=== PATIENT | female | born 1975 | race Caucasian/White ===

== ENCOUNTER 2018-10-02 11:51 | Inpatient (IN) ==
--- NOTE | 2018-10-02 12:26 | Emergency Department Note ---
Disposition Clinical Impression: Failure of outpatient treatment Diabetic ulcer of toe of right foot Qualifiers: Diabetes mellitus type: type 2 Non-pressure ulcer stage: with fat layer exposed Qualified Code(s): E11.621 - Type 2 diabetes mellitus with foot ulcer; L97.512 - Non-pressure chronic ulcer of other part of right foot with fat layer exposed Disposition: Admitted As Inpatient Condition: Fair Referrals: Diane Rodriguez, RESPIRATORY CARE SPECIALIST [Primary Care Provider] - Forms: ED Satisfaction Letter Time of Disposition: 14:13 Lower Extremity Injury HPI - General Chief Complaint: ED Extremity Injury, Lower Stated Complaint: RLE infection Time Seen by Provider: 10/02/18 12:04 Nursing Notes Reviewed: Yes Vital Signs Reviewed: Yes - History of Present Illness HPI Narrative: 43yo female presents from podiatry's office for evaluation and admission. Per patient, Dr. Ferrera plans on surgical debridement tomorrow. Patient's right great toe infection started several weeks ago with a callus that subsequently became infected. She is 7 days into antibiotic course of unknown duration and unknown antibiotic per patient. Patient notes that her symptoms have not improved right have worsened despite this antibiotic course. She notes sweats and chills at home. She did take her temperature at home but did not measure a fever. PMH: DM reportedly poorly controlled due to noncompliance. ROS: Positive: Sweats and chills. Right great toe pain with swelling, erythema, ulcer. Swelling of right foot. Negative: Fever, nausea, vomiting, chest pains, palpitations, ankle or knee pain. - Related Data Home Medications Medication Instructions Recorded Confirmed Dicyclomine [Bentyl] 10 mg PO QID 10/02/18 10/02/18 Gabapentin [Neurontin] 800 mg PO TID 10/02/18 10/02/18 Insulin ASPART [Novolog] 18 units SQ TID 10/02/18 10/02/18 Insulin Glargine,Hum.rec.anlog 0 units SQ DAILY 10/02/18 10/02/18 [Annelise Bowman] Liraglutide [Victoza 2-Wilmer] 0.6 mg SQ QWEEK 10/02/18 10/02/18 Lisinopril-HCTZ 10-12.5 [Prinzide 1 each PO DAILY 10/02/18 10/02/18 10-12.5] Metformin HCl 500 mg PO BID 10/02/18 10/02/18 Allergies Allergy/AdvReac Type Severity Reaction Status Date / Time codeine AdvReac Itching Verified 10/02/18 12:01 [From Tylenol-Codeine #3] hydrocodone [From [place]] AdvReac Itching Verified 10/02/18 12:01 propoxyphene AdvReac Nausea Verified 10/02/18 12:01 [From Darvocet-N] tramadol AdvReac See Verified 10/02/18 12:01 Comments All systems ED: reviewed and negative except as stated. 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 Head: atraumatic, normocephalic Eye: normal appearance, PERRL, EOMI, no scleral icterus, no conjunctival injection ENT: mucous membranes moist, normal external ear exam Neck: normal inspection, trachea midline, full ROM Chest: normal inspection, symmetric chest rise Respiratory: Good respiratory effort. Bilateral breath sounds are clear without wheezing, crackles, or rhonchi. Cardiovascular: Regular rate and rhythm. No clicks, rubs, gallops, or murmors. Normal heart sounds. Bilateral posterior tibial pulses 2/4 and equal. Brisk capillary refill in right toes. Abdomen: Bowel sounds present normoactive. Abdomen is soft, nondistended, and n ontender. No guarding or rebound. No organomegaly noted. Musculoskeletal: Spontaneously moving all extremities. Skin: warm, dry. Right great toe is markedly swollen, erythematous, warm with grade 2 ulcer on the medio-plantar aspect. Erythema and swelling extending through the dorsal foot to the proximal midfoot. Neuro: GCS 15. No focal neurologic deficits observed. Psych: Patient's affect is appropriate for situation. Course Course Narrative: Patient is well-appearing. Afebrile. Normotensive. She is, however, tachycardic. Three-view x-ray and wound culture performed as outpatient prior to arrival to the emergency department today. Three-view x-ray right great toe obtained as outpatient: XR/XR toes RT IMPRESSION: No acute osseous injury or x-ray evidence of osteomyelitis. Soft tissue swelling of the great toe, edema versus cellulitis. D/ / Flo Fish MD / Flo Fish MD Interpreting Provider: Flo Fish MD Per patient, Dr. Ferrera collected cultures of the wound today. Empiric vancomycin and Zosyn. Serum hematology shows slight elevation of white count. ESR is in the 60s. CRP is 120s. I discussed the above with the on-call sterilization specialist, Dr. Ravi. I spoke with the OR nurse as he was in surgery. No further recommendations at this time. I discussed the above with the on-call hospitalist, Dr. Snell. All questions answered. Vital Signs Temperature 98.2 F 10/02/18 11:59 Pulse Rate 113 10/02/18 11:59 Respiratory Rate 16 10/02/18 11:59 Blood Pressure 129/85 10/02/18 11:59 O2 Sat by Pulse Oximetry 99 10/02/18 11:59 Temperature 98.2 F 10/02/18 12:11 Pulse Rate 109 10/02/18 13:03 Respiratory Rate 16 10/02/18 13:03 Blood Pressure 145/100 10/02/18 13:03 O2 Sat by Pulse Oximetry 99 10/02/18 13:03 Oxygen Delivery Oxygen Delivery Room Air Extremity Injury, Lower - Lab Data Result diagrams: 10/02/18 12:19 10/02/18 12:19 Lab Results 10/02/18 10/02/18 10/02/18 Range/Units 12:19 12:19 12:19 WBC 12.0 H (4.3-11.1) K/mcL RBC 4.37 (3.82-4.97) M/mcL Hgb 13.1 (11.5-15.4) g/dL Hct 39.0 (35.3-44.9) % MCV 89.2 (83.0-100.0) fL MCH 30.0 (28.0-33.3) pg MCHC 33.6 (31.6-35.5) g/dL RDW 11.6 (11.5-14.5) % Plt Count 424 H (140-400) K/mcL MPV 9.9 (9.4-12.4) fL Immature Gran % 0.4 (0-4) % Seg Neutrophils % 77.8 % Lymphocytes % 15.3 % Monocytes % 5.0 % Eosinophils % 1.0 % Basophils % 0.5 % Neutrophils # 9.4 H (1.6-8.9) K/mcL Lymphocytes # 1.8 (0.6-4.6) K/mcL Monocytes # 0.6 (0.0-1.3) K/mcL Eosinophils # 0.1 (0.0-0.6) K/mcL Basophils # 0.1 (0.0-0.2) K/mcL ESR 66 H (0-15) mm/hr Sodium 133 L (136-145) mEq/L Potassium 3.6 (3.5-5.1) mEq/L Chloride 92 L (98-107) mEq/L Carbon Dioxide 30 H (23-29) mEq/L BUN 10 (6-20) mg/dL Creatinine 0.64 (0.60-1.20) mg/dL Est GFR ( Amer) > 60 (> 60) Est GFR (Non-Af Amer) > 60 (> 60) BUN/Creatinine Ratio 16 (6-26) Glucose 307 H (70-105) mg/dL Calculated Osmolality 287 (280-300) Lactic Acid (0.5-2.2) mmol/L Calcium 9.8 (8.6-10.3) mg/dL C-Reactive Protein 125 H (Less than 10) mg/L Serum , Qual (Negative) 10/02/18 10/02/18 Range/Units 12:19 12:29 WBC (4.3-11.1) K/mcL RBC (3.82-4.97) M/mcL Hgb (11.5-15.4) g/dL Hct (35.3-44.9) % MCV (83.0-100.0) fL MCH (28.0-33.3) pg MCHC (31.6-35.5) g/dL RDW (11.5-14.5) % Plt Count (140-400) K/mcL MPV (9.4-12.4) fL Immature Gran % (0-4) % Seg Neutrophils % % Lymphocytes % % Monocytes % % Eosinophils % % Basophils % % Neutrophils # (1.6-8.9) K/mcL Lymphocytes # (0.6-4.6) K/mcL Monocytes # (0.0-1.3) K/mcL Eosinophils # (0.0-0.6) K/mcL Basophils # (0.0-0.2) K/mcL ESR (0-15) mm/hr Sodium (136-145) mEq/L Potassium (3.5-5.1) mEq/L Chloride (98-107) mEq/L Carbon Dioxide (23-29) mEq/L BUN (6-20) mg/dL Creatinine (0.60-1.20) mg/dL Est GFR ( Amer) (> 60) Est GFR (Non-Af Amer) (> 60) BUN/Creatinine Ratio (6-26) Glucose (70-105) mg/dL Calculated Osmolality (280-300) Lactic Acid 0.9 (0.5-2.2) mmol/L Calcium (8.6-10.3) mg/dL C-Reactive Protein (Less than 10) mg/L Serum , Qual Negative (Negative)
[2018-10-02] MEDS ORDERED: Piperacillin/Tazobactam 3.375 GM in 0.9 % Sodium Chloride Mini Bag 100 ML IVPB ONE (12:29)
[2018-10-02] MEDS ORDERED: Acetaminophen 325 MG TABLET PO ONE (12:31)
[2018-10-02] MEDS ORDERED: Ketorolac 15 MG/ML VIAL IVP ONE (12:31)
--- NOTE | 2018-10-02 12:48 | Emergency Department Note ---
Disposition Clinical Impression: Failure of outpatient treatment Diabetic ulcer of toe of right foot Qualifiers: Diabetes mellitus type: type 2 Non-pressure ulcer stage: with fat layer exposed Qualified Code(s): E11.621 - Type 2 diabetes mellitus with foot ulcer Disposition: Admitted As Inpatient Condition: Fair Referrals: Diane Rodriguez CHILD HEALTH ASSOCIATE [Primary Care Provider] - Forms: ED Satisfaction Letter Time of Disposition: 14:10 General Adult HPI - General Chief complaint: ED Extremity Injury, Lower Stated complaint: RLE infection Time Seen by Provider: 10/02/18 12:04 Source: patient Limitations: no limitations Nursing Notes Reviewed: Yes Vital Signs Reviewed: Yes - History of Present Illness Pain Scale: 8 - Related Data Home Medications Medication Instructions Recorded Confirmed Dicyclomine [Bentyl] 10 mg PO QID 10/02/18 10/02/18 Gabapentin [Neurontin] 800 mg PO TID 10/02/18 10/02/18 Insulin ASPART [Novolog] 18 units SQ TID 10/02/18 10/02/18 Insulin Glargine,Hum.rec.anlog 0 units SQ DAILY 10/02/18 10/02/18 [Annelise Bowman] Liraglutide [Victoza 2-Wilmer] 0.6 mg SQ QWEEK 10/02/18 10/02/18 Lisinopril-HCTZ 10-12.5 [Prinzide 1 each PO DAILY 10/02/18 10/02/18 10-12.5] Metformin HCl 500 mg PO BID 10/02/18 10/02/18 Allergies Allergy/AdvReac Type Severity Reaction Status Date / Time codeine AdvReac Itching Verified 10/02/18 12:01 [From Tylenol-Codeine #3] hydrocodone [From [place]] AdvReac Itching Verified 10/02/18 12:01 propoxyphene AdvReac Nausea Verified 10/02/18 12:01 [From Darvocet-N] tramadol AdvReac See Verified 10/02/18 12:01 Comments Past Medical History - Past Medical History Medical history: Reports: diabetes, GERD, hyperlipidemia, hypertension Surgical history: Reports: hysterectomy, other Psychiatric history: Reports: anxiety, bipolar, depression 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 - Social History Smoking Status: Former smoker Smokeless Tobacco Status: No Alcohol use: Reports: occasionally Drug use: Reports: none Physical Exam - General Limitations: no limitations General appearance: alert, in no apparent distress Course Vital Signs Temperature 98.2 F 10/02/18 11:59 Pulse Rate 113 10/02/18 11:59 Respiratory Rate 16 10/02/18 11:59 Blood Pressure 129/85 10/02/18 11:59 O2 Sat by Pulse Oximetry 99 10/02/18 11:59 Temperature 98.2 F 10/02/18 12:11 Pulse Rate 93 10/02/18 14:09 Respiratory Rate 16 10/02/18 14:09 Blood Pressure 108/78 10/02/18 14:09 O2 Sat by Pulse Oximetry 96 10/02/18 14:09 Oxygen Delivery Oxygen Delivery Room Air Medical Decision Making - Lab Data Result diagrams: 10/02/18 12:19 10/02/18 12:19 Lab Results 10/02/18 10/02/18 10/02/18 Range/Units 12:19 12:19 12:19 WBC 12.0 H (4.3-11.1) K/mcL RBC 4.37 (3.82-4.97) M/mcL Hgb 13.1 (11.5-15.4) g/dL Hct 39.0 (35.3-44.9) % MCV 89.2 (83.0-100.0) fL MCH 30.0 (28.0-33.3) pg MCHC 33.6 (31.6-35.5) g/dL RDW 11.6 (11.5-14.5) % Plt Count 424 H (140-400) K/mcL MPV 9.9 (9.4-12.4) fL Immature Gran % 0.4 (0-4) % Seg Neutrophils % 77.8 % Lymphocytes % 15.3 % Monocytes % 5.0 % Eosinophils % 1.0 % Basophils % 0.5 % Neutrophils # 9.4 H (1.6-8.9) K/mcL Lymphocytes # 1.8 (0.6-4.6) K/mcL Monocytes # 0.6 (0.0-1.3) K/mcL Eosinophils # 0.1 (0.0-0.6) K/mcL Basophils # 0.1 (0.0-0.2) K/mcL ESR 66 H (0-15) mm/hr Sodium 133 L (136-145) mEq/L Potassium 3.6 (3.5-5.1) mEq/L Chloride 92 L (98-107) mEq/L Carbon Dioxide 30 H (23-29) mEq/L BUN 10 (6-20) mg/dL Creatinine 0.64 (0.60-1.20) mg/dL Est GFR ( Amer) > 60 (> 60) Est GFR (Non-Af Amer) > 60 (> 60) BUN/Creatinine Ratio 16 (6-26) Glucose 307 H (70-105) mg/dL Calculated Osmolality 287 (280-300) Lactic Acid (0.5-2.2) mmol/L Calcium 9.8 (8.6-10.3) mg/dL C-Reactive Protein 125 H (Less than 10) mg/L Serum , Qual (Negative) 10/02/18 10/02/18 Range/Units 12:19 12:29 WBC (4.3-11.1) K/mcL RBC (3.82-4.97) M/mcL Hgb (11.5-15.4) g/dL Hct (35.3-44.9) % MCV (83.0-100.0) fL MCH (28.0-33.3) pg MCHC (31.6-35.5) g/dL RDW (11.5-14.5) % Plt Count (140-400) K/mcL MPV (9.4-12.4) fL Immature Gran % (0-4) % Seg Neutrophils % % Lymphocytes % % Monocytes % % Eosinophils % % Basophils % % Neutrophils # (1.6-8.9) K/mcL Lymphocytes # (0.6-4.6) K/mcL Monocytes # (0.0-1.3) K/mcL Eosinophils # (0.0-0.6) K/mcL Basophils # (0.0-0.2) K/mcL ESR (0-15) mm/hr Sodium (136-145) mEq/L Potassium (3.5-5.1) mEq/L Chloride (98-107) mEq/L Carbon Dioxide (23-29) mEq/L BUN (6-20) mg/dL Creatinine (0.60-1.20) mg/dL Est GFR ( Amer) (> 60) Est GFR (Non-Af Amer) (> 60) BUN/Creatinine Ratio (6-26) Glucose (70-105) mg/dL Calculated Osmolality (280-300) Lactic Acid 0.9 (0.5-2.2) mmol/L Calcium (8.6-10.3) mg/dL C-Reactive Protein (Less than 10) mg/L Serum , Qual Negative (Negative) Attestation Statement - Attestation Attestation: I examined this patient and my medical decision-making was reviewed with the Resident Physician. I agree with the documented findings, disposition and treatment plan as described except to the extent set forth below. Patient presents to the ED with a chief complaint of an ulcer on her right great toe. She has been on antibiotics for about a week and it has gotten worse. Red and swollen and painful. On examination is an ulceration to the right medial aspect of her great toe. There is a significant amount of swelling to the toe and foot. Plan. 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 IV antibiotics and admission. Patient is admitted to medicine.
[2018-10-02 12:49] LABS: Basophils # 0.1 K/mcL (0.0-0.2); Basophils % 0.5 %; Eosinophils # 0.1 K/mcL (0.0-0.6); Hemoglobin 13.1 g/dL (11.5-15.4); Immature Granulocytes % 0.4 % (0-4); Lymphocytes # 1.8 K/mcL (0.6-4.6); Lymphocytes % 15.3 %; Mean Corpuscular HGB Conc 33.6 g/dL (31.6-35.5); Mean Corpuscular Volume 89.2 fL (83.0-100.0); Mean Platelet Volume 9.9 fL (9.4-12.4); Monocytes # 0.6 K/mcL (0.0-1.3); Neutrophils # 9.4 K/mcL (1.6-8.9); Platelet Count 424 K/mcL (140-400); Red Blood Count 4.37 M/mcL (3.82-4.97); Red Cell Distribution Width 11.6 % (11.5-14.5); Segmented Neutrophils % 77.8 %
[2018-10-02 13:04] LABS: BUN/Creatinine Ratio 16 (6-26); Blood Urea Nitrogen 10 mg/dL (6-20); C-Reactive Protein 125 mg/L (Less than 10); Calcium 9.8 mg/dL (8.6-10.3); Carbon Dioxide 30 mEq/L (23-29); Chloride 92 mEq/L (98-107); Glucose 307 mg/dL (70-105); Osmolality,Calculated 287 (280-300); Potassium 3.6 mEq/L (3.5-5.1); Sodium 133 mEq/L (136-145); eGFR For African Americans > 60 (> 60); eGFR For Non-African Americans > 60 (> 60)
[2018-10-02] MEDS ORDERED: *HR* OxyCODONE Immed Rel 5 MG TABLET PO PRN (15:44)
[2018-10-02] MEDS ORDERED: Ondansetron ODT 4 MG TAB.RAPDIS SL PRN (15:44)
[2018-10-02] MEDS ORDERED: Acetaminophen 325 MG TABLET PO PRN (15:44)
[2018-10-02] MEDS ORDERED: Naloxone 0.4 MG/ML INJ IVP PRN (15:44)
[2018-10-02] MEDS ORDERED: Ringers Solution, Lactated 1,000 ML IVC ONE (15:52)
[2018-10-02] MEDS: Gabapentin 400 MG CAPSULE PO SCH ×2 (16:25→20:41)
[2018-10-02] MEDS: Insulin LISPRO 300 UNITS/3 ML VIAL SQ SCH (17:40)
[2018-10-02] MEDS ORDERED: Ringers Solution, Lactated 500 ML IVC ONE ×2 (17:58→18:15)
--- NOTE | 2018-10-02 18:05 | Internal Med History&Physical ---
Date of Encounter: 10/02/18 Time of Encounter: 17:50 Internal Medicine - H&P: HPI Chief complaint: Right Foot Infection Admitted From: Home Plans for Post Hospital Care: Home History of present illness: Ms. Zheng is a 43 year old female with history of insulin-dependent diabetes mellitus and hypertension presents with concerns for diabetic foot infection. Patient had what she describes as a callus on her right medial foot that started 1 month ago. Said she unroofed and drained it at her home. She then was set up with the laboratory tech. At her first podiatry appointment, foot appeared to be healing appropraitly so antibiotics were not started. Two weeks later the foot started to become erythematous and swollen. Placed on an unknown antibiotic at that time. Has been on this for 7 days without improvement. Was in her podiatry physician's office today and was instructed to go to the emergency room to be admitted for probable debridement. In the ED, HR 106 but otherwise vital signs stable. WBC 12. Glucose of 518. Started on vancomycin, Zosyn, and IVF. Discussed with podiatry. Admitted to medicine. Past Med Surg Social Fam HX - Past Medical History Medical history: diabetes, GERD, hyperlipidemia, hypertension Additional medical history: IBS Psychiatric history: anxiety, bipolar, depression - Past Surgical History Surgical History: hysterectomy, other Additional surgical history: tubal ligation - Social History Smoking Status: Former smoker Smokeless Tobacco Status: No Alcohol use: occasionally Drug use: none - Family History Father Hx Family Cardiac Disorders: Yes Internal Medicine - H&P: Meds Amoxicillin/Clavulanate [Augmentin] 1 tab PO BID 10/02/18 [History] Atorvastatin Calcium 80 mg PO QPM 10/02/18 [History] Dicyclomine [Bentyl] 10 mg PO QID 10/02/18 [History] Fenofibrate Nanocrystallized [Fenofibrate] 160 mg PO DAILY 10/02/18 [History] Gabapentin [Neurontin] 800 mg PO TID 10/02/18 [History] Gemfibrozil 600 mg PO BID 10/02/18 [History] Hyoscyamine SL [Levsin SL] 0.125 mg SL TID PRN 10/02/18 [History] Insulin ASPART [Novolog] 18 units SQ TID 10/02/18 [History] Insulin Glargine,Hum.rec.anlog [Toirenasintia Gironeliazarray] 0 units SQ DAILY 10/02/18 [History] Ketoconazole 2% CRM [Nizoral Cream] 1 appl TP BID PRN 10/02/18 [History] Lisinopril-HCTZ 20-12.5 [Prinzide 20-12.5] 1 tab PO DAILY 10/02/18 [History] Metformin HCl 500 mg PO BID 10/02/18 [History] Omeprazole [PriLOSEC] 40 mg PO DAILY 10/02/18 [History] Trazodone HCl 100 mg PO HS PRN 10/02/18 [History] Allergy/AdvReac Type Severity Reaction Status Date / Time codeine AdvReac Itching Verified 10/02/18 12:01 [From Tylenol-Codeine #3] hydrocodone [From [place]] AdvReac Itching Verified 10/02/18 12:01 propoxyphene AdvReac Nausea Verified 10/02/18 12:01 [From Darvocet-N] tramadol AdvReac See Verified 10/02/18 12:01 Comments All Systems PM: A 10-system review of systems was performed and is negative for pertinent findings except as documented above in the HPI. Review of systems: General: Fevers / Weight loss / Night sweats Eyes: Blurry Vision / Change in Vision HENT: Ear Pain / Ear Drainage / Rhinorrhea / Throat Pain / Lymphadenopathy Cardiovascular: Chest Pain / Palpatations / Orthopnea / BERNAL / Weight gain Lungs: Dyspnea / Wheezing / Cough / Sputum production / Pleurisy Abdomen: Abdomen pain / Abdominal distention Extremities: LE edema / Ext pain / Ext erythema Skin: Rashes / Abrasions / Contusions Psych: Hallucinations / Anxiety / Depression Neuro: Weakness / Numbness / Tingling / Facial Droop / Dysphagia - Constitutional Vitals: Temp Pulse Resp BP Pulse Ox 98.3 F 106 14 102/55 96 10/02/18 15:34 10/02/18 15:34 10/02/18 15:34 10/02/18 15:34 10/02/18 15:34 Exam: General: Ill-appearing and in no acute distress HEENT: No erythema of posterior pharynx. No exudates. Lymphatics: No mandibular or cervical lymphadenopathy Cardiovascular: RRR. No murmurs. No chest wall tenderness. Lungs: Clear to auscelltation bilaterally. Regular chest rise. Abdomen: Non-tender. No rebound or gaurding. Nl bowel sounds. Extremities: No edema. 2+ pulses radial and pedal pulses Skin: R foot with erythema and drainage over R medial posterior metatarsal. Mild tenderness. Psych: Nl attention. 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 5/5 strength. Sensation to light touch and pinprick intact. Internal Med - H&P Results - Labs CBC & Chem 7: 10/02/18 12:19 10/02/18 12:19 Labs: Short CBC 10/02/18 Range/Units 12:19 WBC 12.0 H (4.3-11.1) K/mcL Hgb 13.1 (11.5-15.4) g/dL Hct 39.0 (35.3-44.9) % Plt Count 424 H (140-400) K/mcL Neutrophils # 9.4 H (1.6-8.9) K/mcL BMP 10/02/18 12:19 Sodium 133 L Potassium 3.6 Chloride 92 L Carbon Dioxide 30 H BUN 10 Creatinine 0.64 Glucose 307 H Calcium 9.8 - Assessment and Plan (1) Sepsis Current Visit: Yes Status: Acute Assessment and plan: Patient with history of poorly controlled insulin-dependent diabetes mellitus presents with concerns for diabetic foot infection after failing outpatient antibiotic therapy. -Met sepsis criteria on admission with tachycardia and leukocytosis and is now status post 30cc per kg -Started on vancomycin and Zosyn in the emergency department -We will did refer to podiatry for imaging of the foot -We will undergo source control with debridement by podiatry PLAN: - Status post 30cc per kg - Vancomcin and Zosyn - Imaging and debridement per podiatry - NPO@[place] - Diabetic control per above Qualifiers: Sepsis type: sepsis due to unspecified organism Qualified Code(s): A41.9 - Sepsis, unspecified organism (2) Diabetic ulcer of toe of right foot Current Visit: Yes Status: Acute Assessment and plan: per above Qualifiers: Diabetes mellitus type: type 2 Non-pressure ulcer stage: unspecified non- pressure ulcer stage Qualified Code(s): E11.621 - Type 2 diabetes mellitus with foot ulcer; L97.519 - Non-pressure chronic ulcer of other part of right foot with unspecified severity (3) Diabetes Current Visit: No Status: Chronic Assessment and plan: History of type II insulin-dependent diabetes that is poorly controlled. On extensive diabetic regimen outpatient, however, exact dosing unclear. 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
[2018-10-02] MEDS: Piperacillin/Tazobactam 3.375 GM in 0.9 % Sodium Chloride Mini Bag 100 ML IVPB SCH (20:41)
[2018-10-02] MEDS ORDERED: Insulin DETEMIR 100 UNIT/ML X5UNITS SQ SCH (21:00)
[2018-10-02] MEDS ORDERED: Famotidine 20 MG TABLET PO STA (21:43)
[2018-10-02] MEDS ORDERED: methylPREDNISolone 125 MG/2 ML VIAL IVP ONE (21:43)
--- NOTE | 2018-10-03 00:22 | Event Note ---
Date of Encounter: 10/02/18 Time of Encounter: 21:14 Notified by nurse of patient having itching and facial swelling after receiving roxicodone. Denies any known allergy, tachycardic but vitals otherwise stable. No shortness of breath or airway compromise. Dr Pena assessed at bedside. Benadryl, pepcid, and solumedrol ordered. Patient reports resolution of her symptoms following medications. Nurse placed on cardiac monitoring and will monitor closely and notify of any changes. Roxicodone discontinued.
[2018-10-03 02:44] LABS: Basophils % 0.3 %; Eosinophils # 0.1 K/mcL (0.0-0.6); Eosinophils % 1.1 %; Hematocrit 34.8 % (35.3-44.9); Hemoglobin 11.8 g/dL (11.5-15.4); Immature Granulocytes % 0.5 % (0-4); Lymphocytes # 1.4 K/mcL (0.6-4.6); Lymphocytes % 14.8 %; Mean Corpuscular HGB Conc 33.9 g/dL (31.6-35.5); Mean Corpuscular Hemoglobin 30.4 pg (28.0-33.3); Mean Corpuscular Volume 89.7 fL (83.0-100.0); Mean Platelet Volume 9.6 fL (9.4-12.4); Monocytes # 0.3 K/mcL (0.0-1.3); Monocytes % 2.7 %; Platelet Count 375 K/mcL (140-400); Red Blood Count 3.88 M/mcL (3.82-4.97); Red Cell Distribution Width 11.8 % (11.5-14.5); Segmented Neutrophils % 80.6 %; White Blood Count 9.4 K/mcL (4.3-11.1)
[2018-10-03 02:48] LABS: Neutrophils # 7.6 K/mcL (1.6-8.9)
[2018-10-03 03:05] LABS: BUN/Creatinine Ratio 17 (6-26); Blood Urea Nitrogen 12 mg/dL (6-20); Carbon Dioxide 30 mEq/L (23-29); Chloride 98 mEq/L (98-107); Chol/HDL Ratio 6.2 (0-4.9); Cholesterol 149 mg/dL (< 200); Glucose 299 mg/dL (70-105); HDL Cholesterol 24 mg/dL (40-59); LDL Cholesterol,Calculated 63 mg/dL (0-99); Osmolality,Calculated 293 (280-300); Potassium 3.8 mEq/L (3.5-5.1); Sodium 136 mEq/L (136-145); Triglycerides 310 mg/dL (< 150); eGFR For African Americans > 60 (> 60); eGFR For Non-African Americans > 60 (> 60)
[2018-10-03 03:12] LABS: Platelet Estimate Normal (Normal)
[2018-10-03] MEDS: Piperacillin/Tazobactam 3.375 GM in 0.9 % Sodium Chloride Mini Bag 100 ML IVPB SCH ×3 (04:01→18:06)
--- NOTE | 2018-10-03 07:35 | Internal Med Progress Note ---
Hospitalist Progress Note - Encounter Date of Encounter: 10/03/18 Time of Encounter: 07:35 - Subjective Interval History: Patient seen and examined at bedside. Patient reports pain is under control. Overnight, patient had allergic reaction to pain medication oxycodone. Patient had itching and facial swelling, no shortness of breath or airway compromise. Benadryl, Pepcid, Solu-Medrol were ordered patient reported symptoms subsided after medications. She is to have surgery on her right foot this a.m. - Exam Vitals: Temp Pulse Resp BP Pulse Ox 98.6 F 91 15 110/72 99 10/03/18 03:49 10/03/18 03:49 10/03/18 03:49 10/03/18 03:49 10/03/18 03:49 Exam: General: well-appearing and in no acute distress HEENT: No erythema of posterior pharynx. EOM intact, PERRLA Neck: supple. trachea midline. No lymphadenopathy Cardiovascular: RRR. No murmurs. No chest wall tenderness. Lungs: Clear to auscelltation bilaterally. Symmetrical chest wall expansion Abdomen: Non-tender. No rebound or guarding. Bowel sounds present Extremities: No edema. Left foot 2+ pedal pulses, R foot: 2+ pedal pulses. Cellulitis of great toe, warm and tender to touch. Erythemetous. Skin: warm, dry, intact Psych: A&Ox3. 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 5/5 strength. Sensation intact - Summary of Assessment and Plan Summary of Assessment and Plan: Sepsis Pt presented with HR 106, WBC 12, cellulitis of R foot: meeting sepsis criteria, source likely r foot cellulitis -WBC 10/03/18: 9.4 -HR 90's Outpatient treatment of R foot with augmentin was unsuccessful Admitted for surgical management Started on empiric Vanco and Zosyn in ED -Source cellulitis on right foot Plan: -IV vanc -Zosyn Right foot cellulitis -Plantar aspec of R great toe -X-ray: 09/25 No osseous injury or evidence of osteomyelitis -Underwent Incision and drainage and debridement 10/03/18 -Cultures 09/25/18: MRSA, Proteus mirabilis, E. coli, Enterococcus faecalis Plan: -IV vanc -Zosyn -Wound culture collected 10/02/18: (10/03/18) growing G negative Prateek, G positive Cocci - Continue to monitor for sensitivities Diabetes: -History of insulin dependant Type II DM -Home meds: Novolog, Toujeo Solostar, Metformin, Holding while inpatient Plan: -On lispro and detemir while inpatient -Monitor glucose HTN: -History of HTN -BPs low before surgery Plan: -Fluid bolus given -BP's stable since -Holding Prinzide Allergic Reaction -Pt reported face swelling and itchiness following administraion of Roxycodone -No airway involvement -Relieved by benedryl and solumedrol - Time Spent with Patient Total time spent is greater than 50% in coordination of care (as documented) at patient's floor/unit and/or counseling patient: Internal Medicine: Result - Labs CBC & Chem 7: 10/03/18 02:29 10/03/18 02:29 Labs: Short CBC 10/02/18 10/03/18 Range/Units 12:19 02:29 WBC 12.0 H 9.4 (4.3-11.1) K/mcL Hgb 13.1 11.8 (11.5-15.4) g/dL Hct 39.0 34.8 L (35.3-44.9) % Plt Count 424 H 375 (140-400) K/mcL Neutrophils # 9.4 H 7.6 (1.6-8.9) K/mcL BMP 10/02/18 10/03/18 12:19 02:29 Sodium 133 L 136 Potassium 3.6 3.8 Chloride 92 L 98 Carbon Dioxide 30 H 30 H BUN 10 12 Creatinine 0.64 0.69 Glucose 307 H 299 H Calcium 9.8 9.0 Consult Discharge Plan - Plan Referrals: Diane Rodriguez, VISITOR SERVICES REPRESENTATIVE [Primary Care Provider] -
[2018-10-03] MEDS ORDERED: Lisinopril-HCTZ 20-12.5mg TABLET PO SCH (09:00)
[2018-10-03] MEDS: Gabapentin 400 MG CAPSULE PO SCH ×3 (09:01→20:24)
[2018-10-03] MEDS: Insulin LISPRO 300 UNITS/3 ML VIAL SQ SCH ×3 (09:01→18:05)
[2018-10-03] MEDS ORDERED: 0.9 % Sodium Chloride 1,000 ML IV ONE (10:01)
[2018-10-03] MEDS ORDERED: 0.9 % Sodium Chloride 500 ML IV ONE ×2 (10:40→14:01)
[2018-10-03] MEDS ORDERED: *HR* Midazolam HCl 2 MG/2 ML VIAL ONE (10:47)
[2018-10-03] MEDS ORDERED: *HR* FentaNYL (PF) 100 MCG/2 ML VIAL ONE (10:47)
[2018-10-03] MEDS ORDERED: Propofol 500 MG/50 ML INFUS..BTL ONE (10:47)
[2018-10-03] MEDS ORDERED: Lidocaine -MPF 2% 2 ML VIAL ONE (10:49)
[2018-10-03] MEDS ORDERED: Bupivacaine/EPI 1:200k 0.25%PF 10 ML VIAL INFILT ONE (11:37)
[2018-10-03] MEDS ORDERED: ROPIVACAINE/PF/NS 0.25% 1 EACH SYRINGE INTRAART ONE (11:38)
--- NOTE | 2018-10-03 11:38 | Anesthesia Evaluation PreOp ---
Date of Encounter: 10/03/18 Time of Encounter: 11:36 - Past History Planned Operation: Right Foot I&D Cardiac History: Denies any Significant Hx Pulmonary History: Denies Any Significant HX GASKET WINDER History: Other (Bipolar) Other Medical History: Diabetes Type II, GERD Anesthesia History: No Prior Anesthetic Complications, Past Anesthesia (TITI) : No (TITI) Alcohol Use: occasionally Drug use: none Medications and Allergies Amoxicillin/Clavulanate [Augmentin] 1 tab PO BID 10/02/18 [History] Atorvastatin Calcium 80 mg PO QPM 10/02/18 [History] Dicyclomine [Bentyl] 10 mg PO QID PRN 10/02/18 [History] Fenofibrate Nanocrystallized [Fenofibrate] 160 mg PO DAILY 10/02/18 [History] Gabapentin [Neurontin] 800 mg PO TID 10/02/18 [History] Gemfibrozil 600 mg PO BID 10/02/18 [History] Hyoscyamine SL [Levsin SL] 0.125 mg SL TID PRN 10/02/18 [History] Insulin ASPART [Novolog] 15 - 20 units SQ TIDAC 10/02/18 [History] Insulin Glargine,Hum.rec.anlog [Toujeo Solostar] 70 units SQ HS 10/02/18 [History] Ketoconazole 2% CRM [Nizoral Cream] 1 appl TP BID PRN 10/02/18 [History] Lisinopril-HCTZ 20-12.5 [Prinzide 20-12.5] 1 tab PO DAILY 10/02/18 [History] Metformin HCl 500 mg PO BID 10/02/18 [History] Omeprazole [PriLOSEC] 40 mg PO DAILY 10/02/18 [History] Trazodone HCl 100 mg PO HS PRN 10/02/18 [History] Allergy/AdvReac Type Severity Reaction Status Date / Time codeine AdvReac Itching Verified 10/02/18 12:01 [From Tylenol-Codeine #3] hydrocodone [From [place]] AdvReac Itching Verified 10/02/18 12:01 propoxyphene AdvReac Nausea Verified 10/02/18 12:01 [From Darvocet-N] tramadol AdvReac See Verified 07/10/19 12:01 Comments - Meds/Allergy Pre-op Review Medications Reviewed: Yes Allergies Reviewed: Yes Beta Blockers on Current Med List: No Anesthesia Results - Labs 10/03/18 02:29 10/03/18 02:29 - Imaging EKG: report reviewed () Anesthesia Exam Vital Signs/O2 Sat, Most Current Temp Pulse Resp BP Pulse Ox 97.7 F 88 19 115/81 99 10/03/18 07:48 10/03/18 07:48 10/03/18 07:48 10/03/18 10:35 10/03/18 07:48 Blood glucose: 387 NPO (# of Hours): > 8 hrs - HEENT Pupil (Motor): Pupils equal, EOMI Mallampati: II Teeth: Normal Oral Opening: Greater than 3 - GASKET WINDER LOC: Oriented GASKET WINDER Motor: Normal RUE, Normal LUE, Normal RLE, Normal LLE, Normal Face GASKET WINDER Sensory: Normal: RUE, LUE, RLE, LLE, Face - Cardiac Rhythm: Regular Murmur: None JVD: No Carotid Bruit: No - Pulmonary Breath Sounds: bilateral Clear Respiratory Effort: Symmetrical Anesthesia Assess/Plan ASA Score: 3 Level of consciousness: Cooperative Anesthetic Plan: General Autologous Blood: Yes Monitoring Plan: Standard Monitors Recovery Plan: PACU
[2018-10-03] MEDS ORDERED: Calcium Gluconate 1,000 MG/10 ML VIAL ONE (11:41)
[2018-10-03] MEDS ORDERED: *HR* OxyCODONE Immed Rel 5 MG TABLET PO PRN ×2 (11:48→14:01)
[2018-10-03] MEDS ORDERED: Ondansetron 4 MG/2 ML VIAL IVP ONE ×2 (11:48→14:01)
[2018-10-03] MEDS ORDERED: *HR* HYDROmorphone (PF) 1 MG/ML SYRINGE IVP PRN ×2 (11:48→14:01)
[2018-10-03] MEDS ORDERED: *HR* Promethazine 25 MG/ML VIAL IVP PRN ×2 (11:48→14:01)
--- NOTE | 2018-10-03 12:04 | Podiatry Consult Note ---
Date of Encounter: 10/03/18 Time of Encounter: 12:00 Assessment and Plan (1) Diabetic ulcer of toe of right foot Current visit: Yes Status: Acute Assessment: #1 diabetic foot ulcer with abscess and active infection right foot plantar first MTP #2 diabetes out of control with multiple comorbidities including diabetic neuropathy Plan: #1 agree with present broad-spectrum antibiotics. Cultures taken previously yesterday pending outcome and sensitivities #2 patient to proceed to the operating room for formal incision and drainage Qualifiers: Diabetes mellitus type: type 2 Non-pressure ulcer stage: unspecified non- pressure ulcer stage Qualified Code(s): E11.621 - Type 2 diabetes mellitus with foot ulcer; L97.519 - Non-pressure chronic ulcer of other part of right foot with unspecified severity History of Present Illness Chief complaint: Active abscess infection right foot HPI: Ms. Zheng is a 43 year old female , Presented to the wound care clinic yesterday after being evaluated and ongoing treatment for a diabetic foot ulcer plantar aspect of the right great toe. She is initially seen September 04 without a clinical evidence of complication at that time. Patient states she attempted to remove a callus and treated wound herself her. We will month prior to presenting. At that time local wound care was instituted patient continues to improve on September 25 she was seen again in approximately 8 days ago with suspicion for early infection but no conclusive clinical evidence of infection because there is lack of edema erythema over fluctuance necrosis purulence. There is periwound erythema but no loculated sinus tract or any clinical evidence to suggest she had no active infection. Nonetheless the wound debrided at that time under sterile conditions. A surveillance culture was taken the patient was placed on empiric antibiotics/ Augmentin answered 5 mg by mouth twice a day she then presented yesterday week after her second visit with an obvious active infection and a phlegmon on the medial aspect of the first MTPJ then Jac sinus tract from the original wound medially. She had history of fever chills nausea fatigue malaise and clinical symptoms consistent with possible sepsis. She was then underwent limited incision and drainage with active cultures aerobe and anaerobe and a dry sterile dressing applied. She was then sent to ED immediately for intravenous antibiotics and likely admission which was complete. She now presents for active formal incision and drainage and debridement today. We discussed risks versus benefits as well as alternatives to surgical intervention in terms she could understand. Risks include but not limited to infection bleeding pain loss of toe toes foot leg or life DVT blood clots need for further surgery. Failure of procedure to produce desired results. Patient voices comprehension. She signed the consent form under no distress or coercion was not premedicated by me prior to signing the consent form. No assurances or guarantees were made as to the outcome of the procedure. Past Med Surg Social Fam HX - Past Medical History Medical history: diabetes, GERD, hyperlipidemia, hypertension Additional medical history: IBS Psychiatric history: anxiety, bipolar, depression - Past Surgical History Surgical History: hysterectomy, other Additional surgical history: tubal ligation - Social History Smoking Status: Former smoker Smokeless Tobacco Status: No Alcohol use: occasionally Drug use: none Current living situation: Other (Patient recently engaged to be .) - Family History Father Hx Family Cardiac Disorders: Yes Medications and Allergies Amoxicillin/Clavulanate [Augmentin] 1 tab PO BID 10/02/18 [History] Atorvastatin Calcium 80 mg PO QPM 10/02/18 [History] Dicyclomine [Bentyl] 10 mg PO QID PRN 10/02/18 [History] Fenofibrate Nanocrystallized [Fenofibrate] 160 mg PO DAILY 10/02/18 [History] Gabapentin [Neurontin] 800 mg PO TID 10/02/18 [History] Gemfibrozil 600 mg PO BID 10/02/18 [History] Hyoscyamine SL [Levsin SL] 0.125 mg SL TID PRN 10/02/18 [History] Insulin ASPART [Novolog] 15 - 20 units SQ TIDAC 10/02/18 [History] Insulin Glargine,Hum.rec.anlog [Toujeo Solostar] 70 units SQ HS 10/02/18 [History] Ketoconazole 2% CRM [Nizoral Cream] 1 appl TP BID PRN 10/02/18 [History] Lisinopril-HCTZ 20-12.5 [Prinzide 20-12.5] 1 tab PO DAILY 10/02/18 [History] Metformin HCl 500 mg PO BID 10/02/18 [History] Omeprazole [PriLOSEC] 40 mg PO DAILY 10/02/18 [History] Trazodone HCl 100 mg PO HS PRN 10/02/18 [History] Allergy/AdvReac Type Severity Reaction Status Date / Time codeine AdvReac Itching Verified 10/02/18 12:01 [From Tylenol-Codeine #3] hydrocodone [From [place]] AdvReac Itching Verified 10/02/18 12:01 propoxyphene AdvReac Nausea Verified 10/02/18 12:01 [From Darvocet-N] tramadol AdvReac See Verified 10/02/18 12:01 Comments All Systems Reviewed: The remainder of the systems were reviewed and are negative , No chest pain or shortness of breath. She has history of home fever chills nausea fatigue or malaise. She has long history of peripheral sensory neuropathy loss of protective sensation of both feet and legs. Physical Exam - Constitutional Vitals: Temp Pulse Resp BP Pulse Ox 98.2 F 93 16 125/93 99 10/03/18 11:45 10/03/18 11:45 10/03/18 11:45 10/03/18 11:45 10/03/18 11:45 General appearance: thin Exam: 43-year-old female it is questions appropriately joint 3 is conversant engaging and talkative. - Neurological Exam Neurological exam IM: Present: DTR, Achilles, Patellar, Grade 1/4 Additional comments: no spasticity rigidity or flaccidity of either foot or leg.. She has loss of epicritic, vibratory 2 point discrimination, light touch and vibratory sensation, protective sensation from toes to tibia bilaterally. - Psychiatric Psychiatric exam: Present: normal affect - Skin Skin Exam: Present: ulceration Additional comments: Hobbs grade 2 ulceration plantar aspect right great toe with phlegmon tracking medially with sinus tract as well. Surrounding cellulitis spreading the plantar medial and proximal aspect first MTPJ metatarsal - Vascular Capillary Refill: Immediate Right Popliteal: 1+ Left Popliteal: 1+ Right Dorsalis Pedis: 1+ Left Dorsalis Pedis: 1+ Right Posterior Tibialis: 1+ Left Posterior Tibialis: 1+ Edema Location: Present: Ankle, Foot Edema Degree: 1+ Edema Results - Labs Result Diagrams: 10/03/18 02:29 10/03/18 02:29 Labs: Abnormal lab results WBC 12.0 K/mcL (4.3-11.1) H 10/02/18 12:19 Hct 34.8 % (35.3-44.9) L 10/03/18 02:29 Plt Count 424 K/mcL (140-400) H 10/02/18 12:19 9.4 K/mcL (1.6-8.9) H 10/02/18 12:19 ESR 66 mm/hr (0-15) H 10/02/18 12:19 Sodium 133 mEq/L (136-145) L 10/02/18 12:19 Chloride 92 mEq/L (98-107) L 10/02/18 12:19 Carbon Dioxide 30 mEq/L (23-29) H 10/03/18 02:29 Glucose 299 mg/dL (70-105) H 10/03/18 02:29 POC Glucose 387 mg/dL (70-99) H 10/03/18 05:47 125 mg/L (Less than 10) H 10/02/18 12:19 Triglycerides 310 mg/dL (< 150) H 10/03/18 02:29 VLDL Cholesterol, Calc 62 mg/dL (< 31) H 10/03/18 02:29 24 mg/dL (40-59) L 10/03/18 02:29 6.2 (0-4.9) H 10/03/18 02:29 H & H 10/02/18 10/03/18 Range/Units 12:19 02:29 Hgb 13.1 11.8 (11.5-15.4) g/dL Hct 39.0 34.8 L (35.3-44.9) % All other labs normal. - Diagnostic results Ankle/Foot x-ray: report reviewed Consult Discharge Plan - Plan Referrals: Diane Rodriguez, SENIOR SEARCH MARKETING ANALYST [Primary Care Provider] -
[2018-10-03] MEDS ORDERED: Ketorolac 30 MG/ML VIAL ONE (12:41)
[2018-10-03] MEDS ORDERED: Ondansetron 4 MG/2 ML VIAL ONE (12:42)
--- NOTE | 2018-10-03 13:29 | Anesthesia Evaluation Post Op ---
Date of Encounter: 10/03/18 Time of Encounter: 13:29 - Vital Signs Vital Signs: Vital Signs/O2 Sat, Most Current Temp Pulse Resp BP Pulse Ox 98.1 F 78 19 90/61 95 10/03/18 12:59 10/03/18 13:09 10/03/18 13:09 10/03/18 13:09 10/03/18 13:09 - Lungs Lungs: Clear Ascult./Percussion - Airway Airway: Non-obstructed - Cardiovascular Regular Rate - Mental Status Mental Status: Asleep with brisk response to light stimulation - Pain Pain Scale: 0 Pain Scale used: Numeric (1 - 10) - Nausea Vomiting Nausea Vomiting: Not Present - Hydration Hydration: NPO, Has not voided - Discharge PostOp Status: Transfer Patient to floor
[2018-10-03] MEDS ORDERED: methylPREDNISolone 125 MG/2 ML VIAL IVP ONE (14:01)
[2018-10-03] MEDS ORDERED: Naloxone 0.4 MG/ML INJ IVP PRN (14:01)
[2018-10-03] MEDS ORDERED: Ondansetron ODT 4 MG TAB.RAPDIS SL PRN (14:01)
[2018-10-03] MEDS ORDERED: Famotidine 20 MG TABLET PO STA (14:01)
[2018-10-03] MEDS: Insulin DETEMIR 100 UNIT/ML X5UNITS SQ SCH (20:24)
[2018-10-04] MEDS: Piperacillin/Tazobactam 3.375 GM in 0.9 % Sodium Chloride Mini Bag 100 ML IVPB SCH ×3 (00:23→16:23)
[2018-10-04] MEDS: Acetaminophen 325 MG TABLET PO PRN ×2 (00:31→16:22)
[2018-10-04 02:48] LABS: BUN/Creatinine Ratio 21 (6-26); Blood Urea Nitrogen 13 mg/dL (6-20); Calcium 8.8 mg/dL (8.6-10.3); Carbon Dioxide 29 mEq/L (23-29); Chloride 102 mEq/L (98-107); Glucose 152 mg/dL (70-105); Osmolality,Calculated 295 (280-300); Potassium 3.1 mEq/L (3.5-5.1); Sodium 141 mEq/L (136-145); eGFR For African Americans > 60 (> 60); eGFR For Non-African Americans > 60 (> 60)
[2018-10-04 02:50] LABS: Basophils % 0.2 %; Eosinophils % 0.2 %; Hematocrit 30.5 % (35.3-44.9); Immature Granulocytes % 0.4 % (0-4); Lymphocytes # 2.3 K/mcL (0.6-4.6); Lymphocytes % 18.7 %; Mean Corpuscular HGB Conc 32.5 g/dL (31.6-35.5); Mean Corpuscular Hemoglobin 29.6 pg (28.0-33.3); Mean Corpuscular Volume 91.3 fL (83.0-100.0); Mean Platelet Volume 9.9 fL (9.4-12.4); Monocytes # 0.6 K/mcL (0.0-1.3); Monocytes % 4.6 %; Neutrophils # 9.3 K/mcL (1.6-8.9); Platelet Count 409 K/mcL (140-400); Red Blood Count 3.34 M/mcL (3.82-4.97); Red Cell Distribution Width 11.9 % (11.5-14.5); Segmented Neutrophils % 75.9 %; White Blood Count 12.3 K/mcL (4.3-11.1)
[2018-10-04 02:55] LABS: Hemoglobin 9.9 g/dL (11.5-15.4)
[2018-10-04] MEDS ORDERED: Ketorolac 15 MG/ML VIAL IVP ONE ×2 (03:47→16:53)
[2018-10-04 04:37] LABS: Platelet Estimate Normal (Normal)
[2018-10-04 04:38] LABS: Reactive Lymphocytes Present (Not Present)
[2018-10-04] MEDS: Gabapentin 400 MG CAPSULE PO SCH ×3 (09:09→21:14)
[2018-10-04] MEDS: Lisinopril-HCTZ 20-12.5mg TABLET PO SCH (09:10)
[2018-10-04] MEDS: Insulin LISPRO 300 UNITS/3 ML VIAL SQ SCH ×5 (09:10→21:02)
--- NOTE | 2018-10-04 10:02 | Internal Med Progress Note ---
Hospitalist Progress Note - Encounter Date of Encounter: 10/04/18 Time of Encounter: 09:00 - Subjective Interval History: Pt seen and examined at bedside. Afebrile overnight. Reproted pain in r foot overnight that was not relived by tylenol, given tordol, which was effective. Pt reports ZACARIAS, pt believes it is due to poor sleep and lack of caffeine. Reports constipation. Denies fever, sob, chestpain, abdominal pain, diarrhea, changes in urination. - Exam Vitals: Temp Pulse Resp BP Pulse Ox 97.4 F L 78 15 113/64 96 10/04/18 07:29 10/04/18 07:29 10/04/18 07:29 10/04/18 07:29 10/04/18 07:29 Exam: General: well-appearing and in no acute distress HEENT: No erythema of posterior pharynx. EOM intact, PERRLA Neck: supple. trachea midline. No lymphadenopathy Cardiovascular: RRR. No murmurs. No chest wall tenderness. Lungs: Clear to auscelltation bilaterally. Symmetrical chest wall expansion Abdomen: Non-tender. No rebound or guarding. Bowel sounds present Extremities: No edema. Left foot 2+ pedal pulses, R foot: Wound vac and bandages in place, minimal dark red output in vac. Skin: warm, dry, intact Psych: A&Ox3. Appropriate mood and affect Neuro: tax professional II-XII intact. 5/5 strength. Sensation intact DVT Prophylaxis: SQ heparin - Summary of Assessment and Plan Summary of Assessment and Plan: Sepsis Pt presented with HR 106, WBC 12, cellulitis of R foot: meeting sepsis criteria, source likely r foot cellulitis -WBC 10/03/18: 9.4 -HR 80's Outpatient treatment of R foot with augmentin was unsuccessful Admitted for surgical management Started on empiric Vanco and Zosyn in ED -Source cellulitis on right foot Plan: -IV vanc -Zosyn Right foot cellulitis -Plantar aspec of R great toe -X-ray: 09/25 No osseous injury or evidence of osteomyelitis -Underwent Incision and drainage and debridement 10/03/18 -Wound Cultures 09/25/18: MRSA, Proteus mirabilis, E. coli, Enterococcus faecalis -Wound culture collected 10/02/18: (10/03/18) Proteus Mirabilis, MRSA Plan: -IV vanc -Zosyn -Continue wound vac, managed by podiatry -CBC in morning Diabetes: -History of insulin dependant Type II DM -Home meds: Novolog, Toujeo Solostar, Metformin, Holding while inpatient Plan: -On lispro and detemir while inpatient -Monitor glucose HTN: -History of HTN -BPs low before surgery Plan: -Fluid bolus given -BP's stable since -Prinzide restarted after procedure Allergic Reaction -Pt reported face swelling and itchiness following administraion of Roxycodone -No airway involvement -Relieved by benedryl and solumedrol - Time Spent with Patient Total time spent is greater than 50% in coordination of care (as documented) at patient's floor/unit and/or counseling patient: Internal Medicine: Result - Labs CBC & Chem 7: 10/04/18 02:17 10/04/18 02:17 Labs: Short CBC 10/04/18 Range/Units 02:17 WBC 12.3 H (4.3-11.1) K/mcL Hgb 9.9 L D (11.5-15.4) g/dL Hct 30.5 L (35.3-44.9) % Plt Count 409 H (140-400) K/mcL Neutrophils # 9.3 H (1.6-8.9) K/mcL BMP 10/04/18 02:17 Sodium 141 Potassium 3.1 L Chloride 102 Carbon Dioxide 29 BUN 13 Creatinine 0.61 Glucose 152 H Calcium 8.8 Consult Discharge Plan - Plan Referrals: Diane Rodriguez, RESPITE PROVIDER [Primary Care Provider] -
[2018-10-04] MEDS ORDERED: Dextrose Gel 15 GM/37.5 ML TUBE PO PRN ×2 (14:43)
[2018-10-04] MEDS ORDERED: D5% in Water 1,000 ML IVC PRN (14:43)
[2018-10-04] MEDS ORDERED: *HR* Dextrose 50 % in Water (Syg) 50 ML SYRINGE IVP PRN (14:43)
[2018-10-04] MEDS: *HR* Heparin 5,000 UNIT/ML VIAL SQ SCH (17:22)
[2018-10-04] MEDS: Insulin DETEMIR 100 UNIT/ML X5UNITS SQ SCH (21:08)
[2018-10-05] MEDS: Piperacillin/Tazobactam 3.375 GM in 0.9 % Sodium Chloride Mini Bag 100 ML IVPB SCH ×4 (01:24→23:57)
[2018-10-05 02:20] LABS: Basophils % 0.4 %; Eosinophils # 0.1 K/mcL (0.0-0.6); Eosinophils % 1.4 %; Hemoglobin 9.4 g/dL (11.5-15.4); Immature Granulocytes % 0.3 % (0-4); Lymphocytes # 3.7 K/mcL (0.6-4.6); Lymphocytes % 39.5 %; Mean Corpuscular HGB Conc 32.4 g/dL (31.6-35.5); Mean Corpuscular Hemoglobin 29.9 pg (28.0-33.3); Mean Corpuscular Volume 92.4 fL (83.0-100.0); Mean Platelet Volume 9.8 fL (9.4-12.4); Monocytes # 0.4 K/mcL (0.0-1.3); Monocytes % 3.9 %; Platelet Count 379 K/mcL (140-400); Red Blood Count 3.14 M/mcL (3.82-4.97); Red Cell Distribution Width 12.1 % (11.5-14.5); Segmented Neutrophils % 54.5 %; White Blood Count 9.3 K/mcL (4.3-11.1)
[2018-10-05 02:22] LABS: Neutrophils # 5.1 K/mcL (1.6-8.9)
[2018-10-05 02:34] LABS: Platelet Estimate Normal (Normal)
[2018-10-05 02:38] LABS: BUN/Creatinine Ratio 15 (6-26); Blood Urea Nitrogen 9 mg/dL (6-20); Calcium 8.6 mg/dL (8.6-10.3); Carbon Dioxide 30 mEq/L (23-29); Chloride 103 mEq/L (98-107); Glucose 126 mg/dL (70-105); Osmolality,Calculated 290 (280-300); Potassium 3.4 mEq/L (3.5-5.1); Sodium 140 mEq/L (136-145); eGFR For African Americans > 60 (> 60); eGFR For Non-African Americans > 60 (> 60)
[2018-10-05] MEDS: *HR* Heparin 5,000 UNIT/ML VIAL SQ SCH ×2 (07:45→17:22)
[2018-10-05] MEDS: Insulin LISPRO 300 UNITS/3 ML VIAL SQ SCH ×7 (07:47→20:28)
[2018-10-05] MEDS ORDERED: Isovue-370 500 ML BOTTLE IVP ONE (07:59)
[2018-10-05] MEDS: Gabapentin 400 MG CAPSULE PO SCH ×3 (09:39→20:29)
[2018-10-05] MEDS: Lisinopril-HCTZ 20-12.5mg TABLET PO SCH (09:39)
[2018-10-05 10:45] LABS: C-Reactive Protein 24 mg/L (Less than 10)
--- NOTE | 2018-10-05 14:20 | Internal Med Progress Note ---
Hospitalist Progress Note - Encounter Date of Encounter: 10/05/18 Time of Encounter: 14:17 - Subjective Interval History: Pt denies complaints. No N/V/D, no abd pain, no CP, no SOB, no fevers. - Exam Vitals: Temp Pulse Resp BP Pulse Ox 97.9 F 84 16 122/81 95 10/05/18 10:38 10/05/18 10:38 10/05/18 10:38 10/05/18 10:38 10/05/18 10:38 Exam: General: well-appearing and in no acute distress Cardiovascular: RRR, no murmurs Lungs: Clear to auscultation bilaterally Abdomen: soft, nontender Extremities: No edema. Left foot 2+ pedal pulses, R foot w wound vac and bandages in place Skin: warm, dry, intact other than bandaged foot - Summary of Assessment and Plan Summary of Assessment and Plan: Abigail Zheng is a 43 F w hx DM2, HTN, HLD, GERD, anx/dep/bpd, who presented from wound clinic for failed outpatient management of infected diabetic foot ulcer. Pt underwent limited debridement in office with cultures obtained, then sent to ED for further workup. Admitted for IV abx and podiatry consultation. Infected diabetic foot ulcer and abscess: underwent intraop I&D/debridement 10/03 by podiatry. Cultures from clinic on 10/02 growing MRSA and proteus - empiric vanc and zosyn - CT foot to eval for osteo - if no osteo, can do PO cipro or keflex for proteus and bactrim for mrsa Sepsis: resolved DM2: uncontrolled, w peripheral neuropathy, continue home basal insulin, +SSI HTN: home lisinopril/hctz HLD: home lipitor PPx: sqh FEN: ADA, no MIVF Lines: PIV Consults: Podiatry Code: Full Dispo: patient requires inpatient eval and management at this time. Anticipate 2-3 days. Will be homegoing, unclear if needs IV abx Internal Medicine: Result - Labs CBC & Chem 7: 10/05/18 02:01 10/05/18 02:01 Labs: Short CBC 10/05/18 Range/Units 02:01 WBC 9.3 (4.3-11.1) K/mcL Hgb 9.4 L (11.5-15.4) g/dL Hct 29.0 L (35.3-44.9) % Plt Count 379 (140-400) K/mcL Neutrophils # 5.1 (1.6-8.9) K/mcL [facility] 10/05/18 02:01 Sodium 140 Potassium 3.4 L Chloride 103 Carbon Dioxide 30 H BUN 9 Creatinine 0.59 L Glucose 126 H Calcium 8.6 Consult Discharge Plan - Plan Referrals: Diane Rodriguez, SENIOR ENGINEERING MANAGER [Primary Care Provider] -
[2018-10-05] MEDS: Insulin DETEMIR 100 UNIT/ML X5UNITS SQ SCH (20:28)
[2018-10-06] MEDS: *HR* Heparin 5,000 UNIT/ML VIAL SQ SCH ×2 (05:27→18:34)
[2018-10-06] MEDS ORDERED: Gadolinium Contrast Agent (WT Based) IV PRN (07:42)
[2018-10-06] MEDS: Piperacillin/Tazobactam 3.375 GM in 0.9 % Sodium Chloride Mini Bag 100 ML IVPB SCH ×2 (08:13→15:58)
[2018-10-06] MEDS: Insulin LISPRO 300 UNITS/3 ML VIAL SQ SCH ×7 (08:14→20:11)
[2018-10-06] MEDS: Gabapentin 400 MG CAPSULE PO SCH ×3 (08:15→20:05)
[2018-10-06] MEDS: Acetaminophen 325 MG TABLET PO PRN (08:15)
[2018-10-06 09:41] LABS: BUN/Creatinine Ratio 15 (6-26); Blood Urea Nitrogen 10 mg/dL (6-20); Calcium 9.4 mg/dL (8.6-10.3); Carbon Dioxide 33 mEq/L (23-29); Chloride 99 mEq/L (98-107); Glucose 159 mg/dL (70-105); Osmolality,Calculated 292 (280-300); Potassium 3.4 mEq/L (3.5-5.1); Sodium 140 mEq/L (136-145); eGFR For African Americans > 60 (> 60); eGFR For Non-African Americans > 60 (> 60)
--- NOTE | 2018-10-06 10:52 | Internal Med Progress Note ---
Hospitalist Progress Note - Encounter Date of Encounter: 10/06/18 Time of Encounter: 10:48 - Subjective Interval History: Denies complaints today. Curious as to CT foot results, and ok with proceeding with MRI tomorrow due to equivocal results. States she ultimately wants to go home but hopeful to stay in hospital several more days until repeat podiatry procedure for closure and removal of wound vac. Denies N/V/D. - Exam Vitals: Temp Pulse Resp BP Pulse Ox 98.0 F 93 14 124/70 96 10/06/18 07:20 10/06/18 07:20 10/06/18 07:20 10/06/18 07:20 10/06/18 07:20 Exam: General: well-appearing and in no acute distress Cardiovascular: RRR, no murmurs Lungs: Clear to auscultation bilaterally Abdomen: soft, nontender Extremities: No edema. Left foot 2+ pedal pulses, R foot w wound vac and bandages in place Skin: warm, dry, intact other than bandaged foot - Summary of Assessment and Plan Summary of Assessment and Plan: Abigail Zheng is a 43 F w hx DM2, HTN, HLD, GERD, anx/dep/bpd, who presented from wound clinic for failed outpatient management of infected diabetic foot ulcer causing sepsis. Pt underwent limited debridement in office with cultures obtained, then sent to ED for further workup. Admitted for IV abx and podiatry consultation. Infected diabetic foot ulcer and abscess: underwent intraop I&D/debridement 10/03 by podiatry. Cultures from clinic on 10/02 growing MRSA and proteus. CT showing possible osteo of plantar 1st MTP - continue empiric vanc and zosyn - MRI for definitive evaluation for osteo - if no osteo, can do PO cipro or keflex for proteus and bactrim for mrsa; if osteo, will consult ID for abx rec's and follow up DM2: uncontrolled, w peripheral neuropathy, continue home basal insulin, +SSI HTN: holding home lisinopril/hctz today due to contrast and vanc use, will monitor pressures HLD: home lipitor PPx: sqh FEN: ADA, no MIVF Lines: PIV Consults: Podiatry Code: Full Dispo: patient requires inpatient eval and management at this time. Anticipate 1-2 days. Will be homegoing, unclear if needs IV abx Internal Medicine: Result - Labs CBC & Chem 7: 10/05/18 02:01 10/06/18 08:51 Labs: BMP 10/06/18 08:51 Sodium 140 Potassium 3.4 L Chloride 99 Carbon Dioxide 33 H BUN 10 Creatinine 0.67 Glucose 159 H Calcium 9.4 - Impressions Impressions Foot CT 10/05/18 07:59 IMPRESSION: 1. Questionable erosion along the plantar surface of the base of the 1st distal phalanx raises the possibility of osteomyelitis. Consider further evaluation with MRI. 2. Deep soft tissue ulceration with underlying gas along the plantar surface of the 1st digit and shallow soft tissue ulceration along the medial aspect of the midfoot. Diffuse subcutaneous edema compatible with cellulitis. No well-defined drainable fluid collection. D/ / Kj Valencia MD / Kj Valencia MD Interpreting Provider: Kj Valencia MD Consult Discharge Plan - Plan Referrals: Diane Rodriguez, MARKETING AUTOMATION ANALYST [Primary Care Provider] -
[2018-10-06] MEDS ORDERED: Ibuprofen 600 MG TABLET PO ONE (15:30)
[2018-10-06] MEDS: Insulin DETEMIR 100 UNIT/ML X5UNITS SQ SCH (20:11)
[2018-10-07] MEDS: Piperacillin/Tazobactam 3.375 GM in 0.9 % Sodium Chloride Mini Bag 100 ML IVPB SCH ×4 (00:16→22:25)
[2018-10-07] MEDS: *HR* Heparin 5,000 UNIT/ML VIAL SQ SCH ×2 (05:45→16:57)
[2018-10-07 06:23] LABS: Mean Corpuscular Hemoglobin 29.6 pg (28.0-33.3); Mean Corpuscular Volume 92.3 fL (83.0-100.0); Mean Platelet Volume 9.5 fL (9.4-12.4); Platelet Count 432 K/mcL (140-400); Red Blood Count 3.79 M/mcL (3.82-4.97); Red Cell Distribution Width 11.9 % (11.5-14.5); White Blood Count 9.1 K/mcL (4.3-11.1)
[2018-10-07 06:53] LABS: BUN/Creatinine Ratio 26 (6-26); Blood Urea Nitrogen 16 mg/dL (6-20); Calcium 9.1 mg/dL (8.6-10.3); Carbon Dioxide 30 mEq/L (23-29); Chloride 98 mEq/L (98-107); Glucose 265 mg/dL (70-105); Osmolality,Calculated 298 (280-300); Potassium 3.6 mEq/L (3.5-5.1); Sodium 139 mEq/L (136-145); eGFR For African Americans > 60 (> 60); eGFR For Non-African Americans > 60 (> 60)
[2018-10-07 07:10] LABS: Hemoglobin 11.2 g/dL (11.5-15.4)
--- NOTE | 2018-10-07 08:47 | Internal Med Progress Note ---
Hospitalist Progress Note - Encounter Date of Encounter: 10/07/18 Time of Encounter: 09:00 - Subjective Interval History: Patient seen and examined. Afebrile overnight, no overnight events. Reports pain has improved and right foot, but is still there. Patient has been given Toradol for pain, she states it has not been adequate. Denies fevers, chills, headache, shortness of breath, chest pain, nausea, vomiting, diarrhea, constipation. Patient concerned about CT findings, is worried infection may be in her bone. - Exam Vitals: Temp Pulse Resp BP Pulse Ox 98.0 F 87 16 117/71 97 10/07/18 07:18 10/07/18 07:18 10/07/18 07:18 10/07/18 07:18 10/07/18 07:18 Exam: General: well-appearing and in no acute distress Cardiovascular: RRR, no murmurs Lungs: Clear to auscultation bilaterally Abdomen: soft, nontender Extremities: No edema. Left foot 2+ pedal pulses, R foot w wound vac and bandages in place Skin: warm, dry, intact other than bandaged foot - Assessment and Plan (1) Hypertension Current Visit: No Status: Chronic (2) Diabetes Current Visit: Yes Status: Chronic (3) Diabetic ulcer of toe of right foot Current Visit: Yes Status: Acute (4) Sepsis Current Visit: Yes Status: Resolved (5) Essential hypertension Current Visit: No Status: Chronic DVT Prophylaxis: SQ heparin - Summary of Assessment and Plan Summary of Assessment and Plan: Abigail Zheng is a 43 F w hx DM2, HTN, HLD, GERD, anx/dep/bpd, who presented from wound clinic for failed outpatient management of infected diabetic foot ulcer causing sepsis. Pt underwent limited debridement in office with cultures obtained, then sent to ED for further workup. Admitted for IV abx and podiatry consultation. Infected diabetic foot ulcer and abscess: underwent intraop I&D/debridement 10/03 by podiatry. Cultures from clinic on 10/02 growing MRSA and proteus. CT showing possible osteo of plantar 1st MTP - continue empiric vanc and zosyn - MRI for definitive evaluation for osteo - if no osteo, can do PO cipro or keflex for proteus and bactrim for mrsa; if osteo, will consult ID for abx rec's and follow up DM2: uncontrolled, w peripheral neuropathy, continue home basal insulin, +SSI HTN: holding home lisinopril/hctz today due to contrast and vanc use, will monit or pressures HLD: home lipitor PPx: sqh FEN: ADA, no MIVF Lines: PIV Consults: Podiatry Code: Full Dispo: patient requires inpatient eval and management at this time. Anticipate 1-2 days. Will be homegoing, unclear if needs IV abx - Time Spent with Patient Total time spent is greater than 50% in coordination of care (as documented) at patient's floor/unit and/or counseling patient: Internal Medicine: Result - Labs CBC & Chem 7: 10/07/18 05:51 10/07/18 05:51 Labs: Short CBC 10/07/18 Range/Units 05:51 WBC 9.1 (4.3-11.1) K/mcL Hgb 11.2 L D (11.5-15.4) g/dL Hct 35.0 L (35.3-44.9) % Plt Count 432 H (140-400) K/mcL BMP 10/06/18 10/07/18 08:51 05:51 Sodium 140 139 Potassium 3.4 L 3.6 Chloride 99 98 Carbon Dioxide 33 H 30 H BUN 10 16 Creatinine 0.67 0.62 Glucose 159 H 265 H Calcium 9.4 9.1 Consult Discharge Plan - Plan Referrals: Diane Rodriguez, DRAFTER SEISMOGRAPH [Primary Care Provider] - (1) Hypertension Qualifiers: Hypertension type: essential hypertension Qualified Code(s): I10 - Essential (primary) hypertension (2) Diabetes Qualifiers: Diabetes mellitus type: type 2 Diabetes mellitus electrical logging operator insulin use: with electrical logging operator use Diabetes mellitus complication status: with skin complications Diabetes mellitus complication detail: with foot ulcer Qualified Code(s): E11.621 - Type 2 diabetes mellitus with foot ulcer; L97.509 - Non-pressure chronic ulcer of other part of unspecified foot with unspecified severity; Z79.4 - profiling machine set up operator tool (current) use of insulin (3) Diabetic ulcer of toe of right foot Qualifiers: Diabetes mellitus type: type 2 Non-pressure ulcer stage: unspecified non- pressure ulcer stage Qualified Code(s): E11.621 - Type 2 diabetes mellitus with foot ulcer; L97.519 - Non-pressure chronic ulcer of other part of right foot with unspecified severity (4) Sepsis Qualifiers: Sepsis type: sepsis due to unspecified organism Qualified Code(s): A41.9 - Sepsis, unspecified organism
[2018-10-07] MEDS: Gabapentin 400 MG CAPSULE PO SCH ×3 (08:51→22:27)
[2018-10-07] MEDS: Insulin LISPRO 300 UNITS/3 ML VIAL SQ SCH ×7 (08:57→22:26)
--- NOTE | 2018-10-07 20:37 | Podiatry Progress Note ---
Date of Encounter: 10/07/18 Time of Encounter: 15:30 - Assessment and Plan (1) Diabetic ulcer of toe of right foot Current Visit: Yes Status: Acute Assessment: S/P incision and drainage right medial foot and placement of wound vac with Dr. Ferrera on 10/03/18 Right plantar matt grade II ulceration Maceration noted to periwound area WBC 9.1, ESR 82, CRP [address], suction at 125 mmHG, serosangious drainage noted Plan: Ulcer located over area of gas, air from open ulceration Wound vac changed, see below Plan for staged delayed closure later this week MR zheng Removed wound vac without complication. Cleansed with 0.9 NS. Prepped skin with skin prep. Painted macerated tissue with betadine. Placed 4x4 dry gauze to ma cerated tissue. Placed tegaderm drape in window pane fashion. Placed black granulafoam to wound bed. Covered with tegaderm drape. Placed to suction at -125 mmHG. Good seal noted. Secured with drain sponge, kerlix, and YOU wrap. Impression: CT/CT foot RT w con IMPRESSION: 1. Questionable erosion along the plantar surface of the base of the 1st distal phalanx raises the possibility of osteomyelitis. Consider further evaluation with MRI. 2. Deep soft tissue ulceration with underlying gas along the plantar surface of the 1st digit and shallow soft tissue ulceration along the medial aspect of the midfoot. Diffuse subcutaneous edema compatible with cellulitis. No well-defined drainable fluid collection. D/ / jK Valencia MD / Kj Valencia MD Interpreting Provider: Kj Valencia MD Qualifiers: Diabetes mellitus type: type 2 Non-pressure ulcer stage: unspecified non-pressure ulcer stage Qualified Code(s): E11.621 - Type 2 diabetes mellitus with foot ulcer; L97.519 - Non-pressure chronic ulcer of other part of right foot with unspecified severity Objective - Vital Signs Vital Signs: Vital Signs Temp Pulse Resp BP Pulse Ox 10/07/18 14:13 98.2 F 105 16 100/59 94 10/07/18 10:50 98.4 F 95 16 114/69 100 10/07/18 07:18 98.0 F 87 16 117/71 97 10/07/18 03:50 97.5 F L 81 16 101/57 96 Intake and Output 10/07/18 10/07/18 10/07/18 07:59 15:59 23:59 Intake Total 600 / 1300 580 / 1300 120 / 1300 Output Total 450 / 450 Balance 150 / 850 580 / 850 120 / 850 Intake: IV Fluids 600 / 700 100 / 700 Zosyn 3.375 GM In 0.9 % Sodium 100 / 200 100 / 200 Chloride (Mini-Bag +) 100 ML @ 25 mls/hr IVPB Q8HR [facility] Rx#: [id number] Vancocin 1,250 MG In 0.9 % 500 / 500 Sodium Chloride 250 ML @ 166. 667 mls/hr IVPB Q12H [facility] Rx#: [id number] Oral 480 / 600 120 / 600 Output: Urine 450 / 450 Other: Meal Lunch Dinner Percent of Meal Consumed 100% 75% Stool Size Small Stool Consistency formed Stool Characteristics Normal for Patient Stool Color Brown # Voids 1 2 # Bowel Movements 1 Weight 60.5 kg Blood Glucose* 278 229 281 Patient Weight 10/07/18 23:59 Weight 60.5 kg - Exam Exam: Constitiutional: Alert and oriented x 3. Well nourished. No acute distress noted Vascular: 2/4 DP/PT RLE, CFT <3 sec to all digits, warm to warm from tibia to toes RLE, no calf pain with squeeze RLE Neurologic: Diminished sensation to touch, norma4 plantar response Dermatologic: Incision noted to right medial aspect of foot, wound vac in place, macerated tissue noted to periwound area, right plantar hallux ulceration Musculoskeletal: 3/5 muscle strength and normal tone RLE. - Lab Result Diagrams: 10/07/18 05:51 10/07/18 05:51 Labs: Abnormal lab results WBC 12.3 K/mcL (4.3-11.1) H 10/04/18 02:17 RBC 3.79 M/mcL (3.82-4.97) L 10/07/18 05:51 Hgb 11.2 g/dL (11.5-15.4) L D 10/07/18 05:51 Hct 35.0 % (35.3-44.9) L 10/07/18 05:51 Plt Count 432 K/mcL (140-400) H 10/07/18 05:51 Neutrophils # 9.3 K/mcL (1.6-8.9) H 10/04/18 02:17 Reactive Lymphocytes Present (Not Present) A 10/04/18 02:17 ESR 82 mm/hr (0-15) H 10/05/18 02:01 Sodium 133 mEq/L (136-145) L 10/02/18 12:19 Potassium 3.4 mEq/L (3.5-5.1) L 10/06/18 08:51 Chloride 92 mEq/L (98-107) L 10/02/18 12:19 Carbon Dioxide 30 mEq/L (23-29) H 10/07/18 05:51 Creatinine 0.59 mg/dL (0.60-1.20) L 10/05/18 02:01 Glucose 265 mg/dL (70-105) H 10/07/18 05:51 POC Glucose 281 mg/dL (70-99) H 10/07/18 16:05 C-Reactive Protein 24 mg/L (Less than 10) H 10/05/18 02:01 Triglycerides 310 mg/dL (< 150) H 10/03/18 02:29 VLDL Cholesterol, Calc 62 mg/dL (< 31) H 10/03/18 02:29 HDL Cholesterol 24 mg/dL (40-59) L 10/03/18 02:29 Cholesterol/HDL Ratio 6.2 (0-4.9) H 10/03/18 02:29 Vancomycin Trough 11 mcg/mL (5-10) H 10/05/18 13:16 Consult Discharge Plan - Plan Referrals: Diane Rodriguez, [employer] [Primary Care Provider] -
[2018-10-07] MEDS: Insulin DETEMIR 100 UNIT/ML X5UNITS SQ SCH (22:38)
[2018-10-08] MEDS: *HR* Heparin 5,000 UNIT/ML VIAL SQ SCH ×2 (05:47→17:37)
--- NOTE | 2018-10-08 07:25 | Internal Med Progress Note ---
Hospitalist Progress Note - Encounter Date of Encounter: 10/08/18 Time of Encounter: 07:24 - Subjective Interval History: Patient seen and examined. Afebrile, no overnight events. Patient reports having some pain remaining in her right foot. No other complaints. No shortness of breath, chest pain, abdominal pain, diarrhea, or changes in urination. Discussed MRI results with patient, as well as plans for continuing IV antibiotics. - Exam Vitals: Temp Pulse Resp BP Pulse Ox 98.4 F 102 14 112/76 97 10/08/18 07:04 10/08/18 07:04 10/08/18 07:04 10/08/18 07:04 10/08/18 07:04 Exam: General: well-appearing and in no acute distress Cardiovascular: RRR, no murmurs Lungs: Clear to auscultation bilaterally Abdomen: soft, nontender Extremities: No edema. Left foot 2+ pedal pulses, R foot w wound vac and bandages in place Skin: warm, dry, intact other than bandaged foot - Assessment and Plan (1) Hypertension Current Visit: No Status: Chronic (2) Diabetes Current Visit: Yes Status: Chronic (3) Diabetic ulcer of toe of right foot Current Visit: Yes Status: Acute (4) Sepsis Current Visit: Yes Status: Resolved (5) Essential hypertension Current Visit: No Status: Chronic DVT Prophylaxis: SQ heparin - Summary of Assessment and Plan Summary of Assessment and Plan: Abigail Zheng is a 43 F w hx DM2, HTN, HLD, GERD, anx/dep/bpd, who presented from wound clinic for failed outpatient management of infected diabetic foot ulcer causing sepsis. Pt underwent limited debridement in office with cultures obtained, then sent to ED for further workup. Admitted for IV abx and podiatry consultation. Podiatry performed surgery for dibridement/incision & drainage. Left open. IRAM indicated osteomyelitis. Infected diabetic foot ulcer and abscess: underwent intraop I&D/debridement 10/03 by podiatry. Cultures from clinic on 10/02 growing MRSA and proteus. CT showing possible osteo of plantar 1st MTP - ID consult: - Cont IV vanc - Stop Zosyn - Start Rocephin - Start Flagyl - MRI: Marrow edema in 1st toe, indicating osteomyelitis - Podiatry plans for staged closure later this week DM2: uncontrolled, w peripheral neuropathy, continue home basal insulin, +SSI HTN: holding home lisinopril/hctz today due to contrast and vanc use, will mo nitor pressures. BP stable HLD: home lipitor PPx: sqh FEN: ADA, no MIVF Lines: PIV Consults: Podiatry Code: Full Dispo: patient requires inpatient eval and management at this time. Will be homegoing, on IV antibiotics - Time Spent with Patient Total time spent is greater than 50% in coordination of care (as documented) at patient's floor/unit and/or counseling patient: Internal Medicine: Result - Labs CBC & Chem 7: 10/08/18 08:22 10/08/18 08:22 - Impressions Impressions Foot MRI 10/06/18 07:42 IMPRESSION: 1. Deep ulceration of the soft tissues at the great toe appears to extend to involve the flexor tendon sheath of the great toe. No organized drainable fluid collection identified. Soft tissue edema is present with enhancement the soft tissues surrounding ulcer compatible with cellulitis. 2. Marrow signal changes of the distal phalanx of the great toe consistent osteomyelitis given the adjacent deep ulceration. 3. Patchy marrow edema of the proximal 1st phalanx without significant T1 marrow signal change. Findings may reflect reactive noninfectious osteitis versus early changes of osteomyelitis given the adjacent soft tissue wound. 4. [id number]-zo-jxxkhyel osteoarthritic changes of the 1st MTP joint and midfoot articulations. 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 Diabetes mellitus complication status: with skin complications Diabetes mellitus complication detail: with foot ulcer Qualified Code(s): E11.621 - Type 2 diabetes mellitus with foot ulcer; L97.509 - Non-pressure chronic ulcer of other part of unspecified foot with unspecified severity; Z79.4 - residential (current) use of insulin (3) Diabetic ulcer of toe of right foot Qualifiers: Diabetes mellitus type: type 2 Non-pressure ulcer stage: unspecified non- pressure ulcer stage Qualified Code(s): E11.621 - Type 2 diabetes mellitus with foot ulcer; L97.519 - Non-pressure chronic ulcer of other part of right foot with unspecified severity (4) Sepsis Qualifiers: Sepsis type: sepsis due to unspecified organism Qualified Code(s): A41.9 - Sepsis, unspecified organism
--- NOTE | 2018-10-08 08:26 | Infectious Disease Consult ---
Infectious Disease-Consult - Encounter Date/Time Date of Encounter: 10/08/18 Time of Encounter: 08:22 - Data of Consult Patient: new to practice Reason for consult: "osteomyelitis" Consult date: 10/08/18 Requesting Physician: Cristian Pop Primary Care Provider: Diane Rodriguez HEEL SHAVER - HPI HPI: Ms. Zheng is a 43-year-old female with past medical history of diabetes, GERD, hyperlipidemia, hypertension, anxiety, depression, and bipolar. The patient was admitted to the hospital 10/02/18 for a benefit foot ulcer of the right toe. We are consulted 10/08/18 for further workup and treatment recommendations for o steomyelitis. Briefly, the patient is a 43-year-old female with past medical history as stated above. Patient presented to the emergency department at the direction of her onsite health coach for worsening right great toe infection. Apparently, the patient developed an ulcer to the right great toe about a month ago. She has been seeing Dr. Ferrera the wound clinic. She was seen back on 09/25/18 and a wound culture was obtained and came back positive for Proteus, Escherichia coli, MRSA, Enterococcus faecalis. She was placed on a course of oral antibiotics, but had continued worsening of her symptoms. Upon arrival to the ER, she was afebrile. She was tachycardic, but was otherwise hemodynamically stable. She had a mild leukocytosis as well as hyperglycemia. ESR was elevated at 66 with a CRP of 1 25. X-ray done on 09/25/18 showed no acute osseous injury or x-ray evidence of osteomyelitis. Additional imaging was completed in the emergency department. She was started empirically on vancomycin and Zosyn and admitted to the hospital for further evaluation. Since admission, the patient has been evaluated by podiatry. She was taken to the operating room 10/03/18 for operative I&D. The operative note is not available so not sure if there was purulence or osteomyelitis noted in surgery. Was operatively, the patient underwent a CT of the right foot 10/05/18 that showed possible ostomy mellitus first phalanx bolus soft tissue gas along the first digit and findings consistent with cellulitis. She underwent an MRI 10/06/18 that showed findings consistent with osteomyelitis. Currently, the p atient is on vancomycin and Zosyn. We have been asked to evaluate and make further recommendations. During my exam today, the patient endorses the history as stated above. STates she had a callous on her toe that developed an overlying blister about a months ago. States she had been seeing wound care and have acute worsening of the wound after she went swimming. Was seen 7/3 in the wound clinic and placed on PO Bactrim, but had worsening of the wound. Reports fevers at home, denies chills or rigors. Denies chest pain, shortness of breath, or cough. Denies nausea, vomiting, diarrhea, or constipation. States her stools were a little bit loose for a couple of days after starting the Bactrim, this has resolved. Denies oral thrush or skin rashes. Denies abdominal pain or urinary complaints. Has a chronic history of urinary retention and requires self catheterization intermittently. The patient lives at home with her family. She does not work outside the home. She denies tobacco, alcohol, or illicit drug use. States she was diagnosed with type II diabetic 10 years ago and takes metformin and insulin home. Denies any recent travel. Denies chronic infectious diseases. - ROS Review of Systems: All systems reviewed and no additional remarkable complaints except as stated. - Results CBC & Chem 7: 10/10/18 04:07 10/10/18 04:07 - Exam Vitals: Temp Pulse Resp BP Pulse Ox 98.4 F 102 14 112/76 97 10/08/18 07:04 10/08/18 07:04 10/08/18 07:04 10/08/18 07:04 10/08/18 07:04 Exam: Head: Atraumatic, normal inspection, normocephalic. Eye: EOMI, PERRLA, no scleral icterus noted. ENT: Mucous membranes moist. No odontogenic infection noted. Neck: Normal inspection, no meningismus. Respiratory: Clear to auscultation. No rales, respiratory distress, rhonchi, or wheezes noted. Cardiovascular: Regular rate and rhythm, S1 and S2 audible. No murmurs, rubs, or gallops. GI: Soft, nondistended, normal bowel sounds. Extremities:No joint swelling, pedal edema, or tenderness noted. Right foot wound VAC dressing C/D/I without leak. Small amount of dark brown drainage noted in the canister. Back: Normal inspection. No vertebral tenderness noted. Neurological: Alert, oriented 3, no focal deficits. Psychiatric: normal affect, normal mood. Skin: Dry, intact, warm. Normal color. No rashes. Amoxicillin/Clavulanate [Augmentin] 1 tab PO BID 10/02/18 [History] Atorvastatin Calcium 80 mg PO QPM 10/02/18 [History] Dicyclomine [Bentyl] 10 mg PO QID PRN 10/02/18 [History] Fenofibrate Nanocrystallized [Fenofibrate] 160 mg PO DAILY 10/02/18 [History] Gabapentin [Neurontin] 800 mg PO TID 10/02/18 [History] Gemfibrozil 600 mg PO BID 10/02/18 [History] Hyoscyamine SL [Levsin SL] 0.125 mg SL TID PRN 10/02/18 [History] Insulin ASPART [Novolog] 15 - 20 units SQ TIDAC 10/02/18 [History] Insulin Glargine,Hum.rec.anlog [Toujeo Solostar] 70 units SQ HS 10/02/18 [History] Ketoconazole 2% CRM [Nizoral Cream] 1 appl TP BID PRN 10/02/18 [History] Lisinopril-HCTZ 20-12.5 [Prinzide 20-12.5] 1 tab PO DAILY 10/02/18 [History] Metformin HCl 500 mg PO BID 10/02/18 [History] Omeprazole [PriLOSEC] 40 mg PO DAILY 10/02/18 [History] Trazodone HCl 100 mg PO HS PRN 10/02/18 [History] Vancomycin [Vancocin] 1,750 mg IVPB Q12H 34 Days #68 iv.soln 10/10/18 [Rx] cefTRIAXone [Rocephin] 2,000 mg IVPB DAILY 39 Days #39 vial 10/10/18 [Rx] Allergy/AdvReac Type Severity Reaction Status Date / Time codeine AdvReac Itching Verified 10/02/18 12:01 [From Tylenol-Codeine #3] hydrocodone [From [facility]] AdvReac Itching Verified 10/02/18 12:01 propoxyphene AdvReac Nausea Verified 10/02/18 12:01 [From Darvocet-N] tramadol AdvReac See Verified 10/02/18 12:01 Comments - Assessment and Plan (1) Sepsis Current Visit: Yes Status: Resolved The patient had 2 sepsis criteria on admission. Likely secondary to osteomyelitis of the foot. Improved. The CBC normal. Tachycardia resolved. No blood cultures were obtained on admission. Qualifiers: Sepsis type: sepsis due to unspecified organism Qualified Code(s): A41.9 - Sepsis, unspecified organism SNOMED Code(s): 73512901 (2) Osteomyelitis Current Visit: Yes Status: Acute Location: Distal phalanx of right great toe and possible proximal first phalanx. Causative organism: MRSA and Proteus mirabilis per wound cultures. No bone cultures have been obtained. X-ray 09/25/18 was negative for osteomyelitis. CT scan of the right foot 10/05/18 showed possible osteo-myelitis of the first phalanx. MRI of the right foot 10/06/18 showed marrow signal changes of the distal phalanx of the great toe consistent with zoster myelitis given the adjacent deep ulceration. There was matching marrow edema of the proximal first phalanx without significant T1 marrow signal change. Findings may reflect reactive infectious osteitis versus early changes of osteo-myelitis given the adjacent soft tissue wound. Podiatry consult. Status post I&D 10/03/[address] Ferrera. Planning additional staged closure possibly later this week. Preop ESR 66, CRP 125. Currently on vancomycin and Zosyn. Qualifiers: Osteomyelitis type: acute hematogenous Osteomyelitis location: foot Laterality: right Qualified Code(s): M86.071 - Acute hematogenous osteomyelitis, right ankle and foot SNOMED Code(s): 13768264 (3) Cellulitis Current Visit: Yes Status: Acute Patient: Right foot and great toe. Likely secondary to osteomyelitis. Failed outpatient oral antibiotics. Improved per patient report. Causative organism: MRSA and Proteus mirabilis per wound cultures. Podiatry consult. Status post I&D 10/03/[address] Ferrera. No intra-op cultures or path specimens were sent. Currently on Vanc and Zosyn. Qualifiers: Site of cellulitis: extremity Site of cellulitis of extremity: toe Laterality: right Qualified Code(s): L03.031 - Cellulitis of right toe SNOMED Code(s): 114660939 (4) Diabetic ulcer of toe of right foot Current Visit: Yes Status: Acute Location: Right great toe. Etiology: Podiatry consulted and following. Qualifiers: Diabetes mellitus type: type 2 Non-pressure ulcer stage: unspecified non- pressure ulcer stage Qualified Code(s): E11.621 - Type 2 diabetes mellitus with foot ulcer; L97.519 - Non-pressure chronic ulcer of other part of right foot with unspecified severity SNOMED Code(s): 209541565, 645900814, 219538833 (5) Diabetes Current Visit: Yes Status: Chronic Recommend aggressive glucose monitoring and control to promote wound healing and prevent reinfection. Management per the primary team. 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 use Diabetes mellitus complication status: with skin complications Diabetes mellitus complication detail: with foot ulcer Qualified Code(s): E11.621 - Type 2 diabetes mellitus with foot ulcer; L97.509 - Non-pressure chronic ulcer of other part of unspecified foot with unspecified severity; Z79.4 - computer terminal operator (current) use of insulin SNOMED Code(s): 50241242 (6) Essential hypertension Current Visit: No Status: Chronic SNOMED Code(s): 26662003 (7) Hyperglycemia Current Visit: No Status: Chronic SNOMED Code(s): 36325247 - Recommendations Recommendations: Await further surgical recommendations from the podiatry team. Wound care and activity for the podiatry team. Continue vancomycin IV. Pharmacy to dose. Goal trough approximately 15. Discontinue Zosyn. Start Rocephin 2 g IV daily. Start Flagyl 500 mg by mouth 3 times a day. Duration of treatment is on the clinical picture, but likely 6 weeks. Monitor renal function for drug toxicity and does adjust antibiotics. Consults vascular access team once final discharge plans have been made. We will need weekly CBC, BUN/creatinine, ESR, and CRP, and Vanc trough. Will need weekly PICC care per protocol. Follow up with ID 10/22/18 at 1440. Past Med Surg Social Fam HX - Past Medical History Attestation: Yes The following information was validated with the patient. Source: patient, old records reviewed, nursing notes reviewed Medical history: diabetes, GERD, hyperlipidemia, hypertension Additional medical history: IBS Psychiatric history: anxiety, bipolar, depression - Past Surgical History Surgical History: hysterectomy, other Additional surgical history: tubal ligation - Social History Smoking Status: Former smoker Smokeless Tobacco Status: No Alcohol use: occasionally Drug use: none - Family History Father Hx Family Cardiac Disorders: Yes Consult Discharge Plan - Plan Additional Instructions: Follow up in office 1 week s/p d/c. Do not change dressing, unless becomes saturated Do not get foot wet Use orthowedge shoe when ambulating Referrals: Diane Rodriguez CNP [Primary Care Provider] - Sola Bryson CNP [Advanced Practice Nurse] - 10/22/18 2:40 pm Prescriptions: cefTRIAXone [Rocephin] 2,000 mg IVPB DAILY 39 Days #39 vial Vancomycin [Vancocin] 1,750 mg IVPB Q12H 34 Days #68 iv.yanely - Attending Attestation I have personally performed a face to face evaluation on this patient. I have reviewed and agree with the care plan. History and Exam by me shows: Assessment and plan: 1.Sepsis 2.Osteomyelitis of the right great toe and proximal first phalanx causative organism MRSA Proteus mirabilis status post I&D 10/03/2018 3.Cellulitis 4.Diabetic ulcer of the right great toe 5.Hypertension Recommendations Await further surgical recommendations from the podiatry team. Wound care and activity for the podiatry team. Continue vancomycin IV. Pharmacy to dose. Goal trough approximately 15. Discontinue Zosyn. Start Rocephin 2 g IV daily. Start Flagyl 500 mg by mouth 3 times a day. Duration of treatment is on the clinical picture, but likely 6 weeks. Monitor renal function for drug toxicity and does adjust antibiotics. Consults vascular access team once final discharge plans have been made. We will need weekly CBC, BUN/creatinine, ESR, and CRP, and Vanc trough. Will need weekly PICC care per protocol. Follow up with ID 10/22/18 at 1440.
[2018-10-08] MEDS: Gabapentin 400 MG CAPSULE PO SCH ×3 (08:30→20:48)
[2018-10-08] MEDS: Piperacillin/Tazobactam 3.375 GM in 0.9 % Sodium Chloride Mini Bag 100 ML IVPB SCH (08:33)
[2018-10-08] MEDS: Insulin LISPRO 300 UNITS/3 ML VIAL SQ SCH ×7 (08:45→20:49)
[2018-10-08] MEDS: Insulin DETEMIR 100 UNIT/ML X5UNITS SQ SCH ×2 (09:06→20:48)
[2018-10-08 09:13] LABS: Basophils # 0.1 K/mcL (0.0-0.2); Basophils % 0.5 %; Eosinophils # 0.2 K/mcL (0.0-0.6); Hemoglobin 11.7 g/dL (11.5-15.4); Lymphocytes # 2.5 K/mcL (0.6-4.6); Lymphocytes % 27.7 %; Mean Corpuscular HGB Conc 32.5 g/dL (31.6-35.5); Mean Corpuscular Hemoglobin 30.5 pg (28.0-33.3); Mean Platelet Volume 9.7 fL (9.4-12.4); Monocytes # 0.4 K/mcL (0.0-1.3); Monocytes % 4.8 %; Neutrophils # 5.8 K/mcL (1.6-8.9); Platelet Count 472 K/mcL (140-400); Red Blood Count 3.83 M/mcL (3.82-4.97); Red Cell Distribution Width 11.8 % (11.5-14.5); White Blood Count 9.1 K/mcL (4.3-11.1)
[2018-10-08] MEDS ORDERED: cefTRIAXone 2,000 MG in 0.9 % Sodium Chloride Mini Bag 100 ML IVPB SCH (09:29)
[2018-10-08] MEDS ORDERED: Lidocaine -MPF 1% 5 ML AMPUL INFILT ONE (09:31)
[2018-10-08 09:32] LABS: BUN/Creatinine Ratio 15 (6-26); Blood Urea Nitrogen 10 mg/dL (6-20); Calcium 9.2 mg/dL (8.6-10.3); Carbon Dioxide 30 mEq/L (23-29); Chloride 99 mEq/L (98-107); Glucose 282 mg/dL (70-105); Osmolality,Calculated 297 (280-300); Potassium 3.9 mEq/L (3.5-5.1); Sodium 139 mEq/L (136-145); eGFR For African Americans > 60 (> 60); eGFR For Non-African Americans > 60 (> 60)
[2018-10-08] MEDS ORDERED: *HR* OxyCODONE/APAP 5/325 TABLET PO PRN (10:41)
[2018-10-08] MEDS: metroNIDAZOLE 500 MG TABLET PO SCH ×3 (11:04→20:47)
[2018-10-08] MEDS: cefTRIAXone 2,000 MG in Water for inj. (sterile) 20 ML IVP SCH (11:52)
--- NOTE | 2018-10-08 15:41 | Podiatry Progress Note ---
Date of Encounter: 10/08/18 Time of Encounter: 14:15 - Assessment and Plan (1) Diabetic ulcer of toe of right foot Current Visit: Yes Status: Acute Assessment: S/P incision and drainage right medial foot and placement of wound vac with Dr. Ferrera on 10/03/18 Right plantar matt grade II ulceration WBC 9.1, ESR 82, CRP [address], suction at 125 mmHG, serosangious drainage noted MR returned OM Plan: Ulcer located over area of gas, air from open ulceration OR tomorrow for delayed closure NPO after breakfast Recommend social service consult for ECF placement as patient does not want home care for IV atb administration ID consulted-appreciate recommendations Impression: CT/CT foot RT w con IMPRESSION: 1. Questionable erosion along the plantar surface of the base of the 1st distal phalanx raises the possibility of osteomyelitis. Consider further evaluation with MRI. 2. Deep soft tissue ulceration with underlying gas along the plantar surface of the 1st digit and shallow soft tissue ulceration along the medial aspect of the midfoot. Diffuse subcutaneous edema compatible with cellulitis. No well-defined drainable fluid collection. D/ / Kj Valencia MD / Kj Valencia MD Interpreting Provider: Kj Valencia MD R #: [id number] MR/MR foot RT wo/w con IMPRESSION: 1. Deep ulceration of the soft tissues at the great toe appears to extend to involve the flexor tendon sheath of the great toe. No organized drainable fluid collection identified. Soft tissue edema is present with enhancement the soft tissues surrounding ulcer compatible with cellulitis. 2. Marrow signal changes of the distal phalanx of the great toe consistent osteomyelitis given the adjacent deep ulceration. 3. Patchy marrow edema of the proximal 1st phalanx without significant T1 marrow signal change. Findings may reflect reactive noninfectious osteitis versus early changes of osteomyelitis given the adjacent soft tissue wound. 4. Cxgj-ae-yhhaahjr osteoarthritic changes of the 1st MTP joint and midfoot articulations. D/ / Omar Lin MD / Omar Lin MD Interpreting Provider: Omar Lin MD Qualifiers: Diabetes mellitus type: type 2 Non-pressure ulcer stage: unspecified non- pressure ulcer stage Qualified Code(s): E11.621 - Type 2 diabetes mellitus with foot ulcer; L97.519 - Non-pressure chronic ulcer of other part of right foot with unspecified severity Subjective Interval history: Patient awake in bed. Alert and oriented x3. Denies any fevers, chills, nausea, vomiting, or diarrhea. Denies any calf pain, chest pain, or shortness of breath. Reports that she would prefer to go to ECF vs home as she does not believe her home to be sanitary enough to have an IV line. No other questions or concerns at this time. Objective - Vital Signs Vital Signs: Vital Signs Temp Pulse Resp BP Pulse Ox 10/08/18 15:16 98.1 F 95 14 111/75 97 10/08/18 11:35 98.4 F 103 15 109/73 99 10/08/18 07:04 98.4 F 102 14 112/76 97 10/08/18 03:48 98.4 F 90 17 100/63 98 10/07/18 21:00 97.9 F 89 14 104/61 98 Intake and Output 10/07/18 10/08/18 10/08/18 23:59 07:59 15:59 Intake Total 470 / 1650 350 / 610 260 / 610 Balance 470 / 1200 350 / 610 260 / 610 Intake: IV Fluids 350 / 1050 350 / 370 20 / 370 Rocephin 2,000 MG In Water for 20 / 20 inj. (sterile) 20 ML @ 600 mls/ hr IVP Q24H [facility] Rx#:[id number] Zosyn 3.375 GM In 0.9 % Sodium 100 / 300 100 / 100 Chloride (Mini-Bag +) 100 ML @ 25 mls/hr IVPB Q8HR [facility] Rx#: [id number] Vancocin 1,250 MG In 0.9 % 250 / 750 250 / 250 Sodium Chloride 250 ML @ 166. 667 mls/hr IVPB Q12H [facility] Rx#: [id number] Oral 120 / 600 240 / 240 Other: Meal Dinner Breakfast Percent of Meal Consumed 75% 0% # Voids 2 1 1 # Bowel Movements 1 Blood Glucose* 244 117 - Exam Exam: Constitiutional: Alert and oriented x 3. Well nourished. No acute distress noted Vascular: 2/4 DP/PT RLE, CFT <3 sec to all digits, warm to warm from tibia to toes RLE, no calf pain with squeeze RLE Neurologic: Diminished sensation to touch, normal plantar response Dermatologic: Wound vac in place, suction at -125 mmHG, dressing in place, no strike through noted Musculoskeletal: 3/5 muscle strength and normal tone RLE. - Lab Result Diagrams: 10/08/18 08:22 10/08/18 08:22 Labs: Abnormal lab results WBC 12.3 K/mcL (4.3-11.1) H 10/04/18 02:17 RBC 3.79 M/mcL (3.82-4.97) L 10/07/18 05:51 Hgb 11.2 g/dL (11.5-15.4) L D 10/07/18 05:51 Hct 35.0 % (35.3-44.9) L 10/07/18 05:51 Plt Count 472 K/mcL (140-400) H 10/08/18 08:22 Neutrophils # 9.3 K/mcL (1.6-8.9) H 10/04/18 02:17 Reactive Lymphocytes Present (Not Present) A 10/04/18 02:17 ESR 82 mm/hr (0-15) H 10/05/18 02:01 Sodium 133 mEq/L (136-145) L 10/02/18 12:19 Potassium 3.4 mEq/L (3.5-5.1) L 10/06/18 08:51 Chloride 92 mEq/L (98-107) L 10/02/18 12:19 Carbon Dioxide 30 mEq/L (23-29) H 10/08/18 08:22 Creatinine 0.59 mg/dL (0.60-1.20) L 10/05/18 02:01 Glucose 282 mg/dL (70-105) H 10/08/18 08:22 POC Glucose 280 mg/dL (70-99) H 10/08/18 08:28 C-Reactive Protein 24 mg/L (Less than 10) H 10/05/18 02:01 Triglycerides 310 mg/dL (< 150) H 10/03/18 02:29 VLDL Cholesterol, Calc 62 mg/dL (< 31) H 10/03/18 02:29 HDL Cholesterol 24 mg/dL (40-59) L 10/03/18 02:29 Cholesterol/HDL Ratio 6.2 (0-4.9) H 10/03/18 02:29 Vancomycin Trough 11 mcg/mL (5-10) H 10/05/18 13:16 Consult Discharge Plan - Plan Referrals: Diane Rodriguez CNP [Primary Care Provider] - Sola Bryson CNP [Advanced Practice Nurse] - 10/22/18 2:40 pm
[2018-10-09 04:23] LABS: BUN/Creatinine Ratio 12 (6-26); Blood Urea Nitrogen 7 mg/dL (6-20); Calcium 8.9 mg/dL (8.6-10.3); Carbon Dioxide 28 mEq/L (23-29); Chloride 103 mEq/L (98-107); Glucose 212 mg/dL (70-105); Osmolality,Calculated 292 (280-300); Potassium 3.3 mEq/L (3.5-5.1); Sodium 139 mEq/L (136-145); eGFR For African Americans > 60 (> 60); eGFR For Non-African Americans > 60 (> 60)
[2018-10-09] MEDS: *HR* Heparin 5,000 UNIT/ML VIAL SQ SCH ×2 (06:07→17:22)
[2018-10-09] MEDS: metroNIDAZOLE 500 MG TABLET PO SCH ×2 (09:16→16:48)
[2018-10-09] MEDS: Insulin LISPRO 300 UNITS/3 ML VIAL SQ SCH ×7 (09:17→21:21)
[2018-10-09] MEDS: Gabapentin 400 MG CAPSULE PO SCH ×3 (09:17→21:22)
[2018-10-09] MEDS: Insulin DETEMIR 100 UNIT/ML X5UNITS SQ SCH ×2 (09:18→21:23)
--- NOTE | 2018-10-09 09:36 | Internal Med Progress Note ---
<Milad Valentin L - Last Filed: 10/09/18 16:55> Hospitalist Progress Note - Encounter Date of Encounter: 10/09/18 Time of Encounter: 09:36 - Subjective Interval History: Pt seen and examined, feeling well this morning. Pain control is better with Percocet. Zack for surgery today, closure of wound, with podiatry. Pt would prefer ECF placement after discharge for wound care and IV abx manageement. Denies ZACARIAS< chest pain, SOB, fevers, constipation, diarrhea, changes in Urination. Pt reports that she self-caths, and has for the past year. - Exam Vitals: Temp Pulse Resp BP Pulse Ox 98.4 F 99 16 103/66 98 10/09/18 07:15 10/09/18 07:15 10/09/18 07:15 10/09/18 07:15 10/09/18 07:15 Exam: General: well-appearing and in no acute distress HEENT: Atraumatic, normocephalic; oropharynx clear with moist mucous membranes and no mucosal ulcerations. PERRLA Cardiovascular: RRR, no murmurs Lungs: Clear to auscultation bilaterally Abdomen: soft, non-tender MSK: ROM intact, no joint swelling noted Extremities: No edema. Left foot 2+ pedal pulses, R foot w wound vac and bandages in place Skin: warm, dry, intact other than bandaged foot Neuro: moves all extremities, no focal deficits. Psych: Appropriate mood and behavior. A&Ox3 - Assessment and Plan (1) Osteomyelitis Current Visit: Yes Status: Acute Assessment and Plan: Infected diabetic foot ulcer and abscess: underwent intraop I&D/debridement 10/03 by podiatry. Cultures from clinic on 10/02 growing MRSA and proteus. CT showing possible osteo of plantar 1st MTP - ID consult: - Cont IV vanc Day 7, will likely need 6 weeks of therapy - Rocephin Day 2, will likely need 6 weeks of therapy - Discontinue Flagyl - MRI: Marrow edema in 1st toe, indicating osteomyelitis - Podiatry plans for staged closure today (2) Hypertension Current Visit: No Status: Chronic Assessment and Plan: holding home lisinopril/hctz today due to contrast and vanc use, will monitor pressures. BP stable (3) Diabetes Current Visit: Yes Status: Chronic Assessment and Plan: uncontrolled, w peripheral neuropathy, continue home basal insulin, +SSI (4) Diabetic ulcer of toe of right foot Current Visit: Yes Status: Acute Assessment and Plan: As above (5) Sepsis Current Visit: Yes Status: Resolved Assessment and Plan: Resolved DVT Prophylaxis: SQ heparin - Summary of Assessment and Plan Summary of Assessment and Plan: Abigail Zheng is a 43 F w hx DM2, HTN, HLD, GERD, anx/dep/bpd, who presented from wound clinic for failed outpatient management of infected diabetic foot ulcer causing sepsis. Pt underwent limited debridement in office with cultures obtained, then sent to ED for further workup. Admitted for IV abx and podiatry consultation. Podiatry performed surgery for dibridement/incision & drainage. Left open. MRI indicated osteomyelitis.Podiatry to close. Pt wants ECF placement for clean environment upon DC. - Time Spent with Patient Total time spent is greater than 50% in coordination of care (as documented) at patient's floor/unit and/or counseling patient: Internal Medicine: Result - Labs CBC & Chem 7: 10/08/18 08:22 10/09/18 03:55 Labs: BMP 10/09/18 03:55 Sodium 139 Potassium 3.3 L Chloride 103 Carbon Dioxide 28 BUN 7 Creatinine 0.60 Glucose 212 H Calcium 8.9 Consult Discharge Plan - Plan Referrals: Diane Rodriguez CNP [Primary Care Provider] - Sola Bryson CNP [Advanced Practice Nurse] - 10/22/18 2:40 pm <Bi Ruvalcaba - Last Filed: 10/09/18 18:16> Hospitalist Progress Note - Encounter Date of Encounter: 10/09/18 - Exam Vitals: Temp Pulse Resp BP Pulse Ox 98.5 F 98 16 112/75 98 10/09/18 14:10 10/09/18 14:10 10/09/18 14:10 10/09/18 14:10 10/09/18 14:10 - Time Spent with Patient Total time spent is greater than 50% in coordination of care (as documented) at patient's floor/unit and/or counseling patient: Internal Medicine: Result - Labs CBC & Chem 7: 10/08/18 08:22 10/09/18 03:55 Labs: BMP 10/09/18 03:55 Sodium 139 Potassium 3.3 L Chloride 103 Carbon Dioxide 28 BUN 7 Creatinine 0.60 Glucose 212 H Calcium 8.9 - Impressions Impressions Foot X-Ray 10/09/18 07:27 IMPRESSION: Slight rarefaction of the proximal aspect of the 1st distal phalanx likely correlates with the osteomyelitis noted on the recent MRI. No definite discrete bony erosive or destructive change noted. Persistent soft tissue swelling predominately to soft tissues about the 1st digit and distal 1st ray likely on the basis of cellulitis. Previously noted soft tissue ulcers on prior exams are not well demonstrated on these x-rays. No gross soft tissue gas noted. D/ / 10/09/2018 10:09:42 Cristian Richter MD / albert Interpreting Provider: Cristian Richter MD - Attending Attestation I have seen and independently assessed this patient and I agree with plan as documented Plan Sepsis 2/2 osteomyelitis. Plan to complete skilled nursing antibiotics at SNF Diabetic foot ulcer with osteomyelitis. See #1. 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 use Diabetes mellitus complication status: with skin complications Diabetes mellitus complication detail: with foot ulcer Qualified Code(s): E11.621 - Type 2 diabetes mellitus with foot ulcer; L97.509 - Non-pressure chronic ulcer of other part of unspecified foot with unspecified severity; 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
--- NOTE | 2018-10-09 10:44 | Orthopedic Operative Note ---
Date of procedure: 10/03/18 Pre-op diagnosis: #1: Infection with abscess diabetic foot ulcer right foot Post-op diagnosis: same Procedure: 10/09/18 10:43 #1: Incision and drainage of multiple planes right foot, staged procedure anticipated #2: Debridement of all necrotic tissue and application of wound VAC 10/09/18 10:49 Implants: None Complications: None Anesthesia: local, other (General anesthesia per LMA) Local Anesthetics: Other (Ropivacaine) Surgeon: Fabian Ferrera Was there an pharmacy innovation assistant present: No Estimated blood loss (cc): 10 Tourniquet Time (Minutes): 0 Specimen: None Condition: stable Disposition: PACU Procedure in Detail: 10/09/18 10:45 Details in summary of procedure: This procedure will be considered a staged procedure. Patient will likely need further debridement and/or secondary closure the surgical wound pending upon response. The patient was brought to surgical suite. Sign in procedure was performed. Patient's transfer the surgical table and positioned properly safely securely. The right foot was elevated on a foam block. No tourniquet was used. Anesthetic timeout was taken. Patient underwent smooth induction and general anesthesia was achieved per LMA. Right ankle was then prepped with alcohol 3 times local anesthetic was then instilled for target block of the superficial peroneal nerve deep peroneal nerve and posterior tibial nerve. No complications ensued. The right foot was then prepped and draped in usual sterile manner. Surgical timeout was taken. The ulcer was noted on the plantar aspect of the right great toe at the level of the plantar IPJ. The phlegmon was noted on the plantar medial aspect of the right first MTP. A blunt probe was then used to find sinus tract which exited laterally at the level of the original ulceration/wound. Incision was then made from the ulceration to the phlegmon. It was deepened through sharp dissection with a #15 scalpel blade down to the deep fascial layer. Sinus tract was noted to track laterally and distally and proximally and plantarly. All nonviable tissue was debrided down to the deep fascial layer by surgical excisional method using a pickup and Metzenbaum scissor. Remainder the wound was excised all nonviable tissue with #15 scalpel blade and pickup. Remainder the wound was then debrided accordingly with a Send the T[employer] ultrasonic debrider. No purulent ladarius inage was noted. No evidence of exposure of the periosteum of the phalanx or the metatarsal head. Sinus tract was then noted laterally and proximally which was also opened with a #15 scalpel blade and different tissue plane proximally to the original incision. It too was then debrided accordingly by excisional method using a pickup and scissor and a Mozio ultrasonic debrider. Satisfied all nonviable tissue was excised wound was thoroughly irrigated with sterile saline. Distal portions of the incisions were then closed with several interrupted sutures of 3-0 Prolene the remainder the wound was closed and treated with a wound VAC which was applied and found to function properly. Patient was then sent to PACU in good condition after being extubated. No complications. Estimated blood loss less than 10 mL. Patient tolerated the procedure and the general anesthesia without difficulty. 10/09/18 10:49
[2018-10-09] MEDS: cefTRIAXone 2,000 MG in Water for inj. (sterile) 20 ML IVP SCH (10:58)
--- NOTE | 2018-10-09 15:29 | Infectious Disease Progress No ---
ID Progress Note Date of Encounter: 10/09/18 Time of Encounter: 15:27 - Subjective Subjective: Patient seen and examined. No acute events noted overnight. Patient complains of mild right foot pain. Denies fevers, chills, rigors. Denies chest pain, shortness of breath, or cough. Reports some intermittent nausea, but denies any vomiting or diarrhea. States last bowel movement was yesterday. Denies abdominal pain or urinary complaints. Denies oral thrush or skin rashes. - Objective CBC & Chem 7: 10/08/18 08:22 10/09/18 03:55 - Line Documentation Line Documentation: PICC Line (Right upper extremity) - Exam Vitals: Temp Pulse Resp BP Pulse Ox 98.5 F 98 16 112/75 98 10/09/18 14:10 10/09/18 14:10 10/09/18 14:10 10/09/18 14:10 10/09/18 14:10 Exam: Head: Atraumatic, normal inspection, normocephalic. Eye: EOMI, PERRLA, no scleral icterus noted. ENT: Mucous membranes moist. No odontogenic infection noted. Neck: Normal inspection, no meningismus. Respiratory: Clear to auscultation. No rales, respiratory distress, rhonchi, or wheezes noted. Cardiovascular: Regular rate and rhythm, S1 and S2 audible. No murmurs, rubs, or gallops. GI: Soft, nondistended, normal bowel sounds. Extremities:No joint swelling, pedal edema, or tenderness noted. Right foot wound VAC dressing C/D/I without leak. Small amount of dark brown drainage noted in the canister. Neurological: Alert, oriented 3, no focal deficits. Psychiatric: normal affect, normal mood. Skin: Dry, intact, warm. Normal color. No rashes. - Assessment and Plan (1) Sepsis Current Visit: Yes Status: Resolved The patient had 2 sepsis criteria on admission. Likely secondary to osteomyelitis of the foot. Improved. WBC normal. Tachycardia resolved. No blood cultures were obtained on admission. Qualifiers: Sepsis type: sepsis due to unspecified organism Qualified Code(s): A41.9 - Sepsis, unspecified organism SNOMED Code(s): 95896061 (2) Osteomyelitis Current Visit: Yes Status: Acute Location: Distal phalanx of right great toe and possible proximal first phalanx. Causative organism: MRSA and Proteus mirabilis per wound cultures. No bone cultures have been obtained. X-ray 09/25/18 was negative for osteomyelitis. CT scan of the right foot 10/05/18 showed possible osteo-myelitis of the first phalanx. MRI of the right foot 10/06/18 showed marrow signal changes of the distal phalanx of the great toe consistent with zoster myelitis given the adjacent deep ulceration. There was matching marrow edema of the proximal first phalanx without significant T1 marrow signal change. Findings may reflect reactive infectious osteitis versus early changes of osteo-myelitis given the adjacent soft tissue wound. Podiatry consult. Status post I&D 10/03/[address] Ferrera. Podiatry planning more surgery later today. Preop ESR 66, CRP 125. Currently on vancomycin, Rocephin, and Flagyl. Qualifiers: Osteomyelitis type: acute hematogenous Osteomyelitis location: foot Laterality: right Qualified Code(s): M86.071 - Acute hematogenous osteomyelitis, right ankle and foot SNOMED Code(s): 77679981 (3) Cellulitis Current Visit: Yes Status: Acute Patient: Right foot and great toe. Likely secondary to osteomyelitis. Failed outpatient oral antibiotics. Improved per patient report. Causative organism: MRSA and Proteus mirabilis per wound cultures. Podiatry consult. Status post I&D 10/03/[address] Ferrera. No intra-op cultures or path specimens were sent. Currently on Vanc, Rocephin, and Flagyl. Qualifiers: Site of cellulitis: extremity Site of cellulitis of extremity: toe Laterality: right Qualified Code(s): L03.031 - Cellulitis of right toe SNOMED Code(s): 446988617 (4) Diabetic ulcer of toe of right foot Current Visit: Yes Status: Acute Location: Right great toe. Etiology: Unclear. Podiatry consulted and following. Qualifiers: Diabetes mellitus type: type 2 Non-pressure ulcer stage: unspecified non- pressure ulcer stage Qualified Code(s): E11.621 - Type 2 diabetes mellitus with foot ulcer; L97.519 - Non-pressure chronic ulcer of other part of right foot with unspecified severity SNOMED Code(s): 574614837, 473295474, 632196860 (5) Diabetes Current Visit: Yes Status: Chronic Recommend aggressive glucose monitoring and control to promote wound healing and prevent reinfection. Management per the primary team. Qualifiers: Diabetes mellitus type: type 2 Diabetes mellitus half-way insulin use: with meterman use Diabetes mellitus complication status: with skin complications Diabetes mellitus complication detail: with foot ulcer Qualified Code(s): E11.621 - Type 2 diabetes mellitus with foot ulcer; L97.509 - Non-pressure chronic ulcer of other part of unspecified foot with unspecified severity; Z79.4 - [facility] (current) use of insulin SNOMED Code(s): 66110908 (6) Essential hypertension Current Visit: No Status: Chronic SNOMED Code(s): 92251921 (7) Hyperglycemia Current Visit: No Status: Chronic SNOMED Code(s): 96806011 - Recommendations Recommendations: Await intraoperative findings. Wound care and activity for the podiatry team. Continue vancomycin IV. Pharmacy to dose. Goal trough approximately 15. Continue Rocephin 2 g IV daily. Discontinue Flagyl since anaerobic cultures have finalized negative. Duration of treatment is on the clinical picture, but likely 6 weeks. Monitor renal function for drug toxicity and does adjust antibiotics. We will need weekly CBC, BUN/creatinine, ESR, and CRP, and Vanc trough. Will need weekly PICC care per protocol. Follow up with ID 10/22/18 at 1440. Consult Discharge Plan - Plan Referrals: Diane Rodriguez CNP [Primary Care Provider] - Sola Bryson CNP [Advanced Practice Nurse] - 10/22/18 2:40 pm
[2018-10-09] MEDS ORDERED: Calcium Gluconate 1,000 MG/10 ML VIAL ONE (17:17)
[2018-10-09 17:47] LABS: Estimated Average Glucose 312 mg/dl
--- NOTE | 2018-10-09 18:28 | Anesthesia Evaluation PreOp ---
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 History: Other (Bipolar Neuropathy) Other Medical History: Diabetes Type II, GERD, Other (Bipolar) Anesthesia History: No Prior Anesthetic Complications : No (Hysterectomy) Alcohol Use: occasionally Drug use: none Medications and Allergies Amoxicillin/Clavulanate [Augmentin] 1 tab PO BID 10/02/18 [History] Atorvastatin Calcium 80 mg PO QPM 10/02/18 [History] Dicyclomine [Bentyl] 10 mg PO QID PRN 10/02/18 [History] Fenofibrate Nanocrystallized [Fenofibrate] 160 mg PO DAILY 10/02/18 [History] Gabapentin [Neurontin] 800 mg PO TID 10/02/18 [History] Gemfibrozil 600 mg PO BID 10/02/18 [History] Hyoscyamine SL [Levsin SL] 0.125 mg SL TID PRN 10/02/18 [History] Insulin ASPART [Novolog] 15 - 20 units SQ TIDAC 10/02/18 [History] Insulin Glargine,Hum.rec.anlog [Toujeo Solostar] 70 units SQ HS 10/02/18 [History] Ketoconazole 2% CRM [Nizoral Cream] 1 appl TP BID PRN 10/02/18 [History] Lisinopril-HCTZ 20-12.5 [Prinzide 20-12.5] 1 tab PO DAILY 10/02/18 [History] Metformin HCl 500 mg PO BID 10/02/18 [History] Omeprazole [PriLOSEC] 40 mg PO DAILY 10/02/18 [History] Trazodone HCl 100 mg PO HS PRN 10/02/18 [History] Allergy/AdvReac Type Severity Reaction Status Date / Time codeine AdvReac Itching Verified 10/02/18 12:01 [From Tylenol-Codeine #3] hydrocodone [From [place]] AdvReac Itching Verified 10/02/18 12:01 propoxyphene AdvReac Nausea Verified 10/02/18 12:01 [From Darvocet-N] tramadol AdvReac See Verified 10/02/18 12:01 Comments - Meds/Allergy Pre-op Review Medications Reviewed: Yes Allergies Reviewed: Yes Beta Blockers on Current Med List: No Anesthesia Results - Labs 10/08/18 08:22 10/09/18 03:55 - Imaging EKG: report reviewed (Sinus Tach) Anesthesia Exam Height: 5'0 Weight: 133 lbs NPO (# of Hours): MN Pain Scale: 0 - HEENT Pupil (Motor): Pupils equal, EOMI Mallampati: II Teeth: Normal Oral Opening: Greater than 3 - BAG MACHINE ADJUSTER LOC: Oriented BAG MACHINE ADJUSTER Motor: Normal RUE, Normal LUE, Normal RLE, Normal LLE, Normal Face BAG MACHINE ADJUSTER Sensory: Normal: RUE, LUE, RLE, LLE, Face - Cardiac Rhythm: Regular Murmur: None JVD: No Carotid Bruit: No - Pulmonary Breath Sounds: bilateral Clear Respiratory Effort: Symmetrical Anesthesia Assess/Plan ASA Score: 3 (DM Gerd Bipolar) Level of consciousness: Cooperative, Oriented Anesthetic Plan: MAC Autologous Blood: No Monitoring Plan: Standard Monitors Recovery Plan: Other (Discussed MAC, agrees to proceed)
[2018-10-09] MEDS ORDERED: *HR* Propofol 200 MG/20 ML VIAL IVP ONE (19:00)
[2018-10-09] MEDS ORDERED: Propofol 500 MG/50 ML INFUS..BTL ONE (19:00)
[2018-10-09] MEDS ORDERED: Lidocaine -MPF 2% 2 ML VIAL ONE (19:00)
[2018-10-09] MEDS ORDERED: ROPIVACAINE/PF/NS 0.25% 1 EACH SYRINGE INTRAART ONE (19:04)
[2018-10-09] MEDS ORDERED: *HR* PHENYLEPHRINE 1,000 MCG/10 ML SYRINGE IVP ONE ×2 (19:14)
[2018-10-09] MEDS ORDERED: *HR* Dextrose 50 % in Water (Syg) 50 ML SYRINGE IVP PRN (20:00)
[2018-10-09] MEDS ORDERED: Acetaminophen 325 MG TABLET PO PRN (20:00)
[2018-10-09] MEDS ORDERED: Ondansetron ODT 4 MG TAB.RAPDIS SL PRN (20:00)
[2018-10-09] MEDS ORDERED: Naloxone 0.4 MG/ML INJ IVP PRN (20:00)
[2018-10-09] MEDS ORDERED: Dextrose Gel 15 GM/37.5 ML TUBE PO PRN ×2 (20:00)
[2018-10-09] MEDS ORDERED: D5% in Water 1,000 ML IVC PRN (20:00)
--- NOTE | 2018-10-09 21:33 | Anesthesia Evaluation Post Op ---
Date of Encounter: 10/09/18 Time of Encounter: 21:00 - Vital Signs Vital Signs: Vital Signs/O2 Sat/Glucose, Most Current Temp Pulse Resp BP Pulse Ox 10/09/18 20:12 97.5 F L 87 16 110/72 98 - Lungs Lungs: Clear Ascult./Percussion - Airway Airway: Non-obstructed - Cardiovascular Regular Rate - Mental Status Mental Status: Alert & Oriented, Answers Appropriately - Pain Pain Scale: 0 - Nausea Vomiting Nausea Vomiting: Not Present - Hydration Hydration: NPO, Has not voided - Discharge PostOp Status: Transfer Patient to floor
--- NOTE | 2018-10-09 23:05 | Orthopedic Operative Note ---
Date of procedure: 10/09/18 Pre-op diagnosis: #1: Status post incision and drainage of abscess right foot/surgical wound Post-op diagnosis: same Procedure: 10/09/18 23:05 #1: Secondary closure surgical wound, right foot 10/09/18 23:10 Implants: None Complications: None Anesthesia: MAC, local Local Anesthetics: Other (Ropivacaine plain) Surgeon: Fabian Ferrera Was there an personal care assistant present: No Estimated blood loss (cc): 5 Tourniquet Time (Minutes): 0 Specimen: Ulcer right great toe Condition: stable Disposition: floor Procedure in Detail: 10/09/18 23:06 Details in summary of procedure: Patient brought to surgical suite. Sign in procedure was performed. Patient was then transferred surgical table positioned properly safely securely. Right foot elevated on a foam block. Anesthetic timeout was taken. Right ankle was then prepped with alcohol 3 times. Patient underwent sedation. Modified ankle block was target anesthesia of the posterior tibial artery and superficial peroneal artery medial dorsal cutaneous branch was accomplished without difficulty or complication. No tourniquet was used. The right foot was then prepped and draped in usual sterile manner. Surgical timeout was taken. Original sutures on the medial aspect of the first metatarsal were removed. As well as the distal lateral plantar aspect of the incision. Original ulceration of plantar aspect the IP joint was then identified. I then performed 2 semielliptical incisions encompassing this lesion which is approximately 1 cm in diameter directly down to the superficial fascia. These incisions were approximately 4 cm in length. The ulceration was then excised in toto. The wound was then re-debrided and surgically excised well nonviable tissue with a curet pickup and Metzenbaum scissor. A fresh skin edge was obtained on the plantar medial aspect of the incisions for proximals medial aspect the first metatarsal phalangeal joint with a #15 scalpel blade pickup. No further nonviable tissue remaining within the wound. The wound was noted to bleed freely without necessitating use of Bovie ligature. Satisfied we do very clean wound was then debrided with ultrasonics Misonix debrider down the deep fascial layer. No evidence of invasion of the capsular structures were noted and no exposure of any osseous structures were noted. Satisfied we clean wound closure was uneventful using 3-0 Prolene and 4-0 Prolene. The wound was sprayed with PRP prior to closure wound was dressed with Adaptic 4 x 4's and a compression dressing capillary refill time is less than 3 seconds after application of dressing to the great toe and the remainder of the digits as well. Complications encountered none. Estimated blood loss less than 10 mL. The patient sent to same sent to holding room in good condition with vital signs stable
[2018-10-10 04:24] LABS: Basophils # 0.1 K/mcL (0.0-0.2); Basophils % 0.5 %; Eosinophils # 0.2 K/mcL (0.0-0.6); Eosinophils % 1.7 %; Hemoglobin 10.7 g/dL (11.5-15.4); Immature Granulocytes % 0.5 % (0-4); Lymphocytes # 2.6 K/mcL (0.6-4.6); Mean Corpuscular HGB Conc 32.4 g/dL (31.6-35.5); Mean Corpuscular Volume 92.4 fL (83.0-100.0); Mean Platelet Volume 9.5 fL (9.4-12.4); Monocytes # 0.7 K/mcL (0.0-1.3); Monocytes % 6.3 %; Neutrophils # 7.5 K/mcL (1.6-8.9); Platelet Count 415 K/mcL (140-400); Red Blood Count 3.57 M/mcL (3.82-4.97); Red Cell Distribution Width 12.1 % (11.5-14.5); White Blood Count 11.1 K/mcL (4.3-11.1)
[2018-10-10 04:39] LABS: BUN/Creatinine Ratio 11 (6-26); Blood Urea Nitrogen 7 mg/dL (6-20); Calcium 9.1 mg/dL (8.6-10.3); Carbon Dioxide 30 mEq/L (23-29); Chloride 107 mEq/L (98-107); Glucose 135 mg/dL (70-105); Osmolality,Calculated 286 (280-300); Potassium 3.3 mEq/L (3.5-5.1); Sodium 138 mEq/L (136-145); eGFR For African Americans > 60 (> 60); eGFR For Non-African Americans > 60 (> 60)
[2018-10-10] MEDS: *HR* OxyCODONE/APAP 5/325 TABLET PO PRN ×2 (04:52→16:14)
[2018-10-10] MEDS: *HR* Heparin 5,000 UNIT/ML VIAL SQ SCH ×2 (04:52→18:16)
[2018-10-10] MEDS: Insulin LISPRO 300 UNITS/3 ML VIAL SQ SCH ×7 (07:54→20:15)
[2018-10-10] MEDS: Insulin DETEMIR 100 UNIT/ML X5UNITS SQ SCH ×2 (07:56→20:16)
[2018-10-10] MEDS: Gabapentin 400 MG CAPSULE PO SCH ×3 (07:56→20:15)
[2018-10-10] MEDS: Fenofibrate 54 MG TABLET PO SCH (07:57)
[2018-10-10 07:58] LABS: Magnesium 1.6 mg/dL (1.6-2.6)
--- NOTE | 2018-10-10 08:33 | Internal Med Progress Note ---
<Bi Ruvalcaba - Last Filed: 10/10/18 14:31> Hospitalist Progress Note - Encounter Date of Encounter: 10/10/18 - Exam Vitals: Temp Pulse Resp BP Pulse Ox 98.3 F 101 17 105/69 97 10/10/18 11:20 10/10/18 11:20 10/10/18 11:20 10/10/18 11:20 10/10/18 11:20 - Time Spent with Patient Total time spent is greater than 50% in coordination of care (as documented) at patient's floor/unit and/or counseling patient: Internal Medicine: Result - Labs CBC & Chem 7: 10/10/18 04:07 10/10/18 04:07 Labs: Short CBC 10/10/18 Range/Units 04:07 WBC 11.1 (4.3-11.1) K/mcL Hgb 10.7 L (11.5-15.4) g/dL Hct 33.0 L (35.3-44.9) % Plt Count 415 H (140-400) K/mcL Neutrophils # 7.5 (1.6-8.9) K/mcL BMP 10/10/18 04:07 Sodium 138 Potassium 3.3 L Chloride 107 Carbon Dioxide 30 H BUN 7 Creatinine 0.63 Glucose 135 H Calcium 9.1 Consult Discharge Plan - Plan Additional Instructions: Follow up in office 1 week s/p d/c. Do not change dressing, unless becomes saturated Do not get foot wet Use orthowedge shoe when ambulating Referrals: Diane Rodriguez CNP [Primary Care Provider] - Sola Bryson CNP [Advanced Practice Nurse] - 10/22/18 2:40 pm Prescriptions: cefTRIAXone [Rocephin] 2,000 mg IVPB DAILY 39 Days #39 vial Vancomycin [Vancocin] 1,750 mg IVPB Q12H 34 Days #68 iv.yanely - Attending Attestation I have seen and independently assessed this patient and I agree with plan as documented Plan Sepsis 2/2 osteomyelitis. Plan to complete director long term care antibiotics at SNF Diabetic foot ulcer with osteomyelitis. See #1. Podiatry on board for debridement <Milad Valentin - Last Filed: 10/10/18 17:17> Hospitalist Progress Note - Encounter Date of Encounter: 07/18/19 Time of Encounter: 08:31 - Subjective Interval History: Patient seen and examined. She had surgery for closure of wound on right foot yesterday evening. She tolerated surgery well, reported some pain overnight that was managed with when necessary pain medications. Denies fevers, chills, headache, chest pain, shortness of breath, abdominal pain, constipation, di arrhea, changes in urination. Patient is working with social work to find ECF placement upon discharge for management of right foot wound and IV antibiotics. - Exam Vitals: Temp Pulse Resp BP Pulse Ox 98.3 F 97 17 114/74 97 10/10/18 06:45 10/10/18 06:45 10/10/18 06:45 10/10/18 06:45 10/10/18 06:45 Exam: General: well-appearing and in no acute distress HEENT: Atraumatic, normocephalic; oropharynx clear with moist mucous membranes and no mucosal ulcerations. PERRLA Cardiovascular: RRR, no murmurs Lungs: Clear to auscultation bilaterally Abdomen: soft, non-tender MSK: ROM intact, no joint swelling noted Extremities: No edema. Left foot 2+ pedal pulses, R foot w wound wrapped in bandage following surgical closure. Sensation intact in toes Skin: warm, dry, intact other than bandaged foot Neuro: moves all extremities, no focal deficits. Psych: Appropriate mood and behavior. A&Ox3 - Assessment and Plan (1) Osteomyelitis Current Visit: Yes Status: Acute Assessment and Plan: Infected diabetic foot ulcer and abscess: underwent intraop I&D/debridement 10/03 by podiatry. Cultures from clinic on 10/02 growing MRSA and proteus. CT showing possible osteo of plantar 1st MTP - ID consult: following ID recs for Abx - Cont IV vanc Day 8, will likely need 6 weeks of therapy - Rocephin Day 3, will likely need 6 weeks of therapy - MRI: Marrow edema in 1st toe, indicating osteomyelitis - Podiatry performed closure yesterday - Will f/u with Podiatry for wound care outpatient - Will follow up with Infectious disease outpatient (2) Hypertension Current Visit: No Status: Chronic Assessment and Plan: holding home lisinopril/hctz today due to contrast and vanc use, will monitor pressures. BP stable (3) Diabetes Current Visit: Yes Status: Chronic Assessment and Plan: uncontrolled, w peripheral neuropathy, continue home basal insulin, +SSI (4) Diabetic ulcer of toe of right foot Current Visit: Yes Status: Acute Assessment and Plan: As above (5) Sepsis Current Visit: Yes Status: Resolved Assessment and Plan: Resolved DVT Prophylaxis: SQ heparin - Summary of Assessment and Plan Summary of Assessment and Plan: Abigail Zheng is a 43 F w hx DM2, HTN, HLD, GERD, anx/dep/bpd, who presented from wound clinic for failed outpatient management of infected diabetic foot ulcer causing sepsis. Pt underwent limited debridement in office with cultures obtained, then sent to ED for further workup. Admitted for IV abx and podiatry consultation. Podiatry performed surgery for dibridement/incision & drainage. Left open. MRI indicated osteomyelitis.Podiatry closed wound. Pt wants ECF placement for clean environment upon DC. - Time Spent with Patient Total time spent is greater than 50% in coordination of care (as documented) at patient's floor/unit and/or counseling patient: Internal Medicine: Result - Labs CBC & Chem 7: 10/10/18 04:07 10/10/18 04:07 Labs: Short CBC 10/10/18 Range/Units 04:07 WBC 11.1 (4.3-11.1) K/mcL Hgb 10.7 L (11.5-15.4) g/dL Hct 33.0 L (35.3-44.9) % Plt Count 415 H (140-400) K/mcL Neutrophils # 7.5 (1.6-8.9) K/mcL BMP 10/10/18 04:07 Sodium 138 Potassium 3.3 L Chloride 107 Carbon Dioxide 30 H BUN 7 Creatinine 0.63 Glucose 135 H Calcium 9.1 - Impressions Impressions Foot X-Ray 10/09/18 07:27 IMPRESSION: Slight rarefaction of the proximal aspect of the 1st distal phalanx likely correlates with the osteomyelitis noted on the recent MRI. No definite discrete bony erosive or destructive change noted. Persistent soft tissue swelling predominately to soft tissues about the 1st digit and distal 1st ray likely on the basis of cellulitis. Previously noted soft tissue ulcers on prior exams are not well demonstrated on these x-rays. No gross soft tissue gas noted. D/ / 10/09/2018 10:09:42 Cristian Richter MD / albert Interpreting Provider: Cristian Richter MD <Nadia Valentinanthony Morales - Last Filed: 10/10/18 17:17> (1) Osteomyelitis Qualifiers: Osteomyelitis type: acute hematogenous Osteomyelitis location: foot Lateral ity: right Qualified Code(s): M86.071 - Acute hematogenous osteomyelitis, right ankle and foot (2) Hypertension Qualifiers: Hypertension type: essential hypertension Qualified Code(s): I10 - Essential (primary) hypertension (3) Diabetes Qualifiers: Diabetes mellitus type: type 2 Diabetes mellitus director long term care insulin use: with director long term care use Diabetes mellitus complication status: with skin complications Diabetes mellitus complication detail: with foot ulcer Qualified Code(s): E11.621 - Type 2 diabetes mellitus with foot ulcer; L97.509 - Non-pressure chronic ulcer of other part of unspecified foot with unspecified severity; Z79.4 - FDC (current) use of insulin (4) Diabetic ulcer of toe of right foot Qualifiers: Diabetes mellitus type: type 2 Non-pressure ulcer stage: unspecified non- pressure ulcer stage Qualified Code(s): E11.621 - Type 2 diabetes mellitus with foot ulcer; L97.519 - Non-pressure chronic ulcer of other part of right foot with unspecified severity (5) Sepsis Qualifiers: Sepsis type: sepsis due to unspecified organism Qualified Code(s): A41.9 - Sepsis, unspecified organism
[2018-10-10] MEDS ORDERED: Fenofibrate 54 MG TABLET PO SCH (09:00)
--- NOTE | 2018-10-10 10:40 | Podiatry Progress Note ---
Date of Encounter: 10/10/18 Time of Encounter: 10:15 - Assessment and Plan (1) Diabetic ulcer of toe of right foot Current Visit: Yes Status: Acute Assessment: S/P incision and drainage right medial foot and placement of wound vac with Dr. Ferrera on 10/03/18 S/P Secondary closure surgical wound, right foot 10/09/[address] Ferrera WBC 11.1, ESR 82, CRP 24 MR returned OM Sutures well approximated, no signs of dehiscence noted Minimal erythema noted to periwound, expected postoperatively No active drainage noted Plan: Dressing changed, see below Awaiting ECF placement Orthowedge shoe ordered, bracing dept. notified Heel weightbearing right foot Do not get dressing wet, do not change until seen in office unless saturated Follow up in podiatry office 1 week s/p d/c. Please make appointment prior to d/c ID managing ATB- appreciate recommendations Cleansed with 0.9 NS, covered suture line with adaptic, 4x4 dry gauze, and kerlix. Secured with YOU bandage Impression: CT/CT foot RT w con IMPRESSION: 1. Questionable erosion along the plantar surface of the base of the 1st distal phalanx raises the possibility of osteomyelitis. Consider further evaluation with MRI. 2. Deep soft tissue ulceration with underlying gas along the plantar surface of the 1st digit and shallow soft tissue ulceration along the medial aspect of the midfoot. Diffuse subcutaneous edema compatible with cellulitis. No well-defined drainable fluid collection. D/ / Kj Valencia MD / Kj Valencia MD Interpreting Provider: Kj Valencia MD R #: [id number] MR/MR foot RT wo/w con IMPRESSION: 1. Deep ulceration of the soft tissues at the great toe appears to extend to involve the flexor tendon sheath of the great toe. No organized drainable fluid collection identified. Soft tissue edema is present with enhancement the soft tissues surrounding ulcer compatible with cellulitis. 2. Marrow signal changes of the distal phalanx of the great toe consistent osteomyelitis given the adjacent deep ulceration. 3. Patchy marrow edema of the proximal 1st phalanx without significant T1 marrow signal change. Findings may reflect reactive noninfectious osteitis versus early changes of osteomyelitis given the adjacent soft tissue wound. 4. [id number] osteoarthritic changes of the 1st MTP joint and midfoot articulations. D/ / Omar Lin MD / Omar Lin MD Interpreting Provider: Omar Lin MD Qualifiers: Diabetes mellitus type: type 2 Non-pressure ulcer stage: unspecified non- pressure ulcer stage Qualified Code(s): E11.621 - Type 2 diabetes mellitus with foot ulcer; L97.519 - Non-pressure chronic ulcer of other part of right foot with unspecified severity Subjective Interval history: Patient awake in bed. Alert and oriented x3. Denies any fevers, chills, nausea, vomiting, or diarrhea. Denies any calf pain, chest pain, or shortness of breath. Reports that she would prefer to go to ECF vs home as she does not believe her home to be sanitary enough to have an IV line. No other questions or concerns at this time. Objective - Vital Signs Vital Signs: Vital Signs Temp Pulse Resp BP Pulse Ox 10/10/18 06:45 98.3 F 97 17 114/74 97 10/10/18 03:16 98.2 F 99 14 108/72 98 10/09/18 23:37 97.9 F 92 16 120/77 96 10/09/18 20:12 97.5 F L 87 16 110/72 98 10/09/18 14:10 98.5 F 98 16 112/75 98 10/09/18 12:35 98.4 F 105/65 98 10/09/18 10:47 98.0 F 100 16 111/69 97 Intake and Output 10/09/18 10/10/18 10/10/18 23:59 07:59 15:59 Intake Total 500 / 1020 500 / 500 Output Total 5 / 5 300 / 300 Balance 495 / 1015 500 / 200 -300 / 200 Intake: IV Fluids 500 / 1020 500 / 500 Vancocin 1,750 MG In 0.9 % 500 / 1000 500 / 500 Sodium Chloride 500 ML @ 250 mls/hr IVPB Q12H [facility] Rx#: [id number] Oral 0 / 0 0 / 0 Output: Urine 0 / 0 300 / 300 Estimated Blood Loss 5 / 5 Other: # Voids 1 Blood Glucose* 164 215 - Lab Result Diagrams: 10/10/18 04:07 10/10/18 04:07 Labs: Abnormal lab results WBC 12.3 K/mcL (4.3-11.1) H 10/04/18 02:17 RBC 3.57 M/mcL (3.82-4.97) L 10/10/18 04:07 Hgb 10.7 g/dL (11.5-15.4) L 10/10/18 04:07 Hct 33.0 % (35.3-44.9) L 10/10/18 04:07 Plt Count 415 K/mcL (140-400) H 10/10/18 04:07 Neutrophils # 9.3 K/mcL (1.6-8.9) H 10/04/18 02:17 Reactive Lymphocytes Present (Not Present) A 10/04/18 02:17 ESR 82 mm/hr (0-15) H 10/05/18 02:01 Sodium 133 mEq/L (136-145) L 10/02/18 12:19 Potassium 3.3 mEq/L (3.5-5.1) L 10/10/18 04:07 Chloride 92 mEq/L (98-107) L 10/02/18 12:19 Carbon Dioxide 30 mEq/L (23-29) H 10/10/18 04:07 Creatinine 0.59 mg/dL (0.60-1.20) L 10/05/18 02:01 Glucose 135 mg/dL (70-105) H 10/10/18 04:07 POC Glucose 171 mg/dL (70-99) H 10/09/18 10:51 Hemoglobin A1c 12.5 % (-5.6) H 10/09/18 16:10 C-Reactive Protein 24 mg/L (Less than 10) H 10/05/18 02:01 Triglycerides 310 mg/dL (< 150) H 10/03/18 02:29 VLDL Cholesterol, Calc 62 mg/dL (< 31) H 10/03/18 02:29 HDL Cholesterol 24 mg/dL (40-59) L 10/03/18 02:29 Cholesterol/HDL Ratio 6.2 (0-4.9) H 10/03/18 02:29 Vancomycin Trough 13 mcg/mL (5-10) H 10/10/18 04:07 Consult Discharge Plan - Plan Additional Instructions: Follow up in office 1 week s/p d/c. Do not change dressing, unless becomes saturated Do not get foot wet Use orthowedge shoe when ambulating Referrals: Diane Rodriguez, TIAGO [Primary Care Provider] - Sola Bryson CNP [Advanced Practice Nurse] - 10/22/18 2:40 pm
--- NOTE | 2018-10-10 10:47 | Infectious Disease Progress No ---
ID Progress Note Date of Encounter: 10/10/18 Time of Encounter: 10:45 - Subjective Subjective: Patient seen and examined. No acute events noted overnight. Patient complains of mild right foot pain. Denies fevers, chills, rigors. Denies chest pain, shortness of breath, or cough. Reports some intermittent nausea, but denies any vomiting or diarrhea. States last bowel movement was yesterday. Denies abdominal pain or urinary complaints. Denies oral thrush or skin rashes. States appetite is good. - Objective CBC & Chem 7: 10/10/18 04:07 10/10/18 04:07 - Line Documentation Line Documentation: PICC Line (Right upper extremity) - Exam Vitals: Temp Pulse Resp BP Pulse Ox 98.3 F 97 17 114/74 97 10/10/18 06:45 10/10/18 06:45 10/10/18 06:45 10/10/18 06:45 10/10/18 06:45 Exam: Head: Atraumatic, normal inspection, normocephalic. Eye: EOMI, PERRLA, no scleral icterus noted. ENT: Mucous membranes moist. No odontogenic infection noted. Neck: Normal inspection, no meningismus. Respiratory: Clear to auscultation. No rales, respiratory distress, rhonchi, or wheezes noted. Cardiovascular: Regular rate and rhythm, S1 and S2 audible. No murmurs, rubs, or gallops. GI: Soft, nondistended, normal bowel sounds. Extremities:No joint swelling, pedal edema, or tenderness noted. Right foot dressing C/D/I. Neurological: Alert, oriented 3, no focal deficits. Psychiatric: normal affect, normal mood. Skin: Dry, intact, warm. Normal color. No rashes. - Assessment and Plan (1) Sepsis Current Visit: Yes Status: Resolved The patient had 2 sepsis criteria on admission. Likely secondary to osteomyelitis of the foot. Resolved. WBC normal. Tachycardia resolved. No blood cultures were obtained on admission. Qualifiers: Sepsis type: sepsis due to unspecified organism Qualified Code(s): A41.9 - Sepsis, unspecified organism SNOMED Code(s): 85556787 (2) Osteomyelitis Current Visit: Yes Status: Acute Location: Distal phalanx of right great toe and possible proximal first phalanx. Causative organism: MRSA and Proteus mirabilis per wound cultures. No bone cultures have been obtained. X-ray 09/25/18 was negative for osteomyelitis. CT scan of the right foot 10/05/18 showed possible osteo-myelitis of the first phalanx. MRI of the right foot 10/06/18 showed marrow signal changes of the distal phalanx of the great toe consistent with zoster myelitis given the adjacent deep ulceration. There was matching marrow edema of the proximal first phalanx without significant T1 marrow signal change. Findings may reflect reactive infectious osteitis versus early changes of osteo-myelitis given the adjacent soft tissue wound. Podiatry consult. Status post I&D 10/03/[address] Ferrera. Status post delayed closure 10/09/[address] Ferrera. Operative note reviewed. Path report pending. Preop ESR 66, CRP 125. Currently on vancomycin and Rocephin. Qualifiers: Osteomyelitis type: acute hematogenous Osteomyelitis location: foot Laterality: right Qualified Code(s): M86.071 - Acute hematogenous osteomyelitis, right ankle and foot SNOMED Code(s): 06724054 (3) Cellulitis Current Visit: Yes Status: Acute Patient: Right foot and great toe. Likely secondary to osteomyelitis. Failed outpatient oral antibiotics. Improved. Causative organism: MRSA and Proteus mirabilis per wound cultures. Podiatry consult. Status post I&D 10/03/[address] Ferrera. No intra-op cultures or path specimens were sent. Currently on Vanc and Rocephin. Qualifiers: Site of cellulitis: extremity Site of cellulitis of extremity: toe Laterality: right Qualified Code(s): L03.031 - Cellulitis of right toe SNOMED Code(s): 861404082 (4) Diabetic ulcer of toe of right foot Current Visit: Yes Status: Acute Location: Right great toe. Etiology: Unclear. Podiatry consulted and following. Qualifiers: Diabetes mellitus type: type 2 Non-pressure ulcer stage: unspecified non- pressure ulcer stage Qualified Code(s): E11.621 - Type 2 diabetes mellitus with foot ulcer; L97.519 - Non-pressure chronic ulcer of other part of right foot with unspecified severity SNOMED Code(s): 945224287, 399747051, 216252055 (5) Diabetes Current Visit: Yes Status: Chronic Recommend aggressive glucose monitoring and control to promote wound healing and prevent reinfection. Management per the primary team. Qualifiers: Diabetes mellitus type: type 2 Diabetes mellitus ferry terminal supervisor insulin use: with ferry terminal supervisor use Diabetes mellitus complication status: with skin complications Diabetes mellitus complication detail: with foot ulcer Qualified Code(s): E11.621 - Type 2 diabetes mellitus with foot ulcer; L97.509 - Non-pressure chronic ulcer of other part of unspecified foot with unspecified severity; Z79.4 - long-term (current) use of insulin SNOMED Code(s): 67392059 (6) Essential hypertension Current Visit: No Status: Chronic SNOMED Code(s): 01857964 (7) Hyperglycemia Current Visit: No Status: Chronic SNOMED Code(s): 59584938 - Recommendations Recommendations: Wound care and activity for the podiatry team. Continue vancomycin IV. Pharmacy to dose. Goal trough approximately 15. Continue Rocephin 2 g IV daily. Duration of treatment is on the clinical picture, but likely 6 weeks. Monitor renal function for drug toxicity and does adjust antibiotics. We will need weekly CBC, BUN/creatinine, ESR, and CRP, and Vanc trough. Will need weekly PICC care per protocol. Follow up with ID 10/22/18 at 1440. Consult Discharge Plan - Plan Referrals: Diane Rodriguez CNP [Primary Care Provider] - Sola Bryson CNP [Advanced Practice Nurse] - 10/22/18 2:40 pm
[2018-10-10] MEDS: cefTRIAXone 2,000 MG in Water for inj. (sterile) 20 ML IVP SCH (11:04)
--- NOTE | 2018-10-10 18:19 | Discharge Summary ---
<Milad Valentin L - Last Filed: 10/11/18 17:37> - NOTES TO OUTPATIENT PROVIDER Notes to Outpatient Provider: 43-year-old female, status post surgery for diabetic foot ulcer on right side. Osteomyelitis noted on MRI. Patient well be discharged to [facility] with IV antibiotics. Estimated treatment will need to be for 6 weeks. Will follow-up with podiatry, and infectious disease outpatient. Glucose fluctuating during admission. Recommend tighter glycemic control. Orders not resulted at time of discharge: Pending orders 10/09/18 19:48 Surgical Pathology [PTH] Routine 10/11/18 04:00 Basic Metabolic Panel AM 0400 CBC [Complete Blood Count] [HEME] AM 0400 Date of Encounter: 10/11/18 Time of Encounter: 15:38 - Discharge Diagnosis (1) Osteomyelitis Priority: Primary Status: Acute Qualifiers: Osteomyelitis type: acute hematogenous Osteomyelitis location: foot Laterality: right Qualified Code(s): M86.071 - Acute hematogenous osteomyelitis, right ankle and foot (2) Hypertension Priority: Secondary Status: Chronic Qualifiers: Hypertension type: essential hypertension Qualified Code(s): I10 - Essential (primary) hypertension (3) Diabetes Priority: Secondary Status: Chronic Qualifiers: Diabetes mellitus type: type 2 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 Diabetes mellitus complication status: with skin complications Diabetes mellitus complication detail: with foot ulcer Qualified Code(s): E11.621 - Type 2 diabetes mellitus with foot ulcer; L97.509 - Non-pressure chronic ulcer of other part of unspecified foot with unspecified severity; Z79.4 - snf (current) use of insulin (4) Diabetic ulcer of toe of right foot Priority: Primary Status: Acute Qualifiers: Diabetes mellitus type: type 2 Non-pressure ulcer stage: unspecified non-p ressure ulcer stage Qualified Code(s): E11.621 - Type 2 diabetes mellitus with foot ulcer; L97.519 - Non-pressure chronic ulcer of other part of right foot with unspecified severity (5) Sepsis Priority: Primary Status: Resolved Qualifiers: Sepsis type: sepsis due to unspecified organism Qualified Code(s): A41.9 - Sepsis, unspecified organism Hospital course: Ms. Zheng is a 43 year old female with a history of insulin-dependent diabetes mellitus, hypertension, urinary retention. She presented with concerns for diabetic foot infection. She reported that she had an infected callus on her right medial foot is, plantar side, that began roughly one month prior to admission. She stated that she was able to drain fluid from her foot before seeing a ward secretary for the first time. At first podiatry appointment her foot appeared to be healing well. Two weeks later foot became erythematous and swollen. She was placed on an augmentin at that time. On 10/02/18 she was seen at her ward secretary's office and instructed to go to the emergency room so surgical debridement could be performed. In the ED she was tachycardic with an elevated white blood cell count. She was treated for sepsis. Empiric Vancomycin, Zosyn were started. Her condition stabilized quickly. Podiatry, and infectious disease were consulted. Wound cultures from 10/02/18 grew Proteus mirabilis, and MRSA. On 10/03/18 she was taken for surgical incision and drainage/debridement. She tolerated procedure well. Wound VAC was left on right foot following procedure. MRI on 10/06/18 indicated osteomyelitis and right foot. Infectious disease recommendation is that she continue IV vancomycin and IV Rocephin for 6 weeks. On 10/09/18 she went for another surgery with podiatry to close the wound. Patient tolerated procedure well. Surgeon recommended patient follow-up in one week for wound care. And that she should not change dressing until then, unless it is saturated. She was discharged to an extended care facility with PICC line in place for administration of IV antibiotics. Dx: Osteomyelitis right foot, infected diabetic foot ulcer right foot Pertinent tests/consults: Podiatry, infectious disease - R Foot CT: 10/05/18 Possible osteomyelitis, Deep tissue ulceration with gas along plantar surface - R Foot MRI: 10/06/18 soft tissue edema, Marrow changes/edema distal phalanx of great toe. - Foot X-ray: 10/09/18 Soft tissue edema. Likely Osteomyelitis of 1st toe. No gross gas - Wound culture: 10/02/18 Proteus mirabilis, MRSA Follow up: Podiatry in 1 week, infectious disease on 10/22/18 Tests pending:None Med changes: Addition of IV vancomycin, addition of IV Rocephin. Mental status: awake, fully oriented - Time Spent with Patient Total time spent providing and/or coordinating discharge services: - Discharge Medications Prescriptions: New cefTRIAXone [Rocephin] 2,000 mg IVPB DAILY 39 Days #39 vial Vancomycin [Vancocin] 1,750 mg IVPB Q12H 34 Days #68 iv.soln OxyCODONE/APAP 5/325 [Percocet 5/325 MG] 1 each PO Q8H PRN 4 Days #10 tablet PRN Reason: moderate to severe pain Continued Gabapentin [Neurontin] 800 mg PO TID Dicyclomine [Bentyl] 10 mg PO QID PRN PRN Reason: IBS Metformin HCl 500 mg PO BID Insulin Glargine,Hum.rec.anlog [Toujeo Solostar] 70 units SQ HS Insulin ASPART [Novolog] 15 - 20 units SQ TIDAC Hyoscyamine SL [Levsin Sl] 0.125 mg SL TID PRN PRN Reason: IBS Trazodone HCl 100 mg PO HS PRN PRN Reason: Sleep Omeprazole [PriLOSEC] 40 mg PO DAILY Lisinopril-HCTZ 20-12.5 [Prinzide 20-12.5] 1 tab PO DAILY Fenofibrate Nanocrystallized [Fenofibrate] 160 mg PO DAILY Atorvastatin Calcium 80 mg PO QPM Gemfibrozil 600 mg PO BID Discontinued Ketoconazole 2% CRM [Nizoral Cream] 1 appl TP BID PRN PRN Reason: Rash Amoxicillin/Clavulanate [Augmentin] 1 tab PO BID Home Medications: Atorvastatin Calcium 80 mg PO QPM 10/02/18 [History] Dicyclomine [Bentyl] 10 mg PO QID PRN 10/02/18 [History] Fenofibrate Nanocrystallized [Fenofibrate] 160 mg PO DAILY 10/02/18 [History] Gabapentin [Neurontin] 800 mg PO TID 10/02/18 [History] Gemfibrozil 600 mg PO BID 10/02/18 [History] Hyoscyamine SL [Levsin Sl] 0.125 mg SL TID PRN 10/02/18 [History] Insulin ASPART [Novolog] 15 - 20 units SQ TIDAC 10/02/18 [History] Insulin Glargine,Hum.rec.anlog [Toujeo Solostar] 70 units SQ HS 10/02/18 [History] Lisinopril-HCTZ 20-12.5 [Prinzide 20-12.5] 1 tab PO DAILY 10/02/18 [History] Metformin HCl 500 mg PO BID 10/02/18 [History] Omeprazole [PriLOSEC] 40 mg PO DAILY 10/02/18 [History] Trazodone HCl 100 mg PO HS PRN 10/02/18 [History] Vancomycin [Vancocin] 1,750 mg IVPB Q12H 34 Days #68 iv.soln 10/10/18 [Rx] cefTRIAXone [Rocephin] 2,000 mg IVPB DAILY 39 Days #39 vial 10/10/18 [Rx] OxyCODONE/APAP 5/325 [Percocet 5/325 MG] 1 each PO Q8H PRN 4 Days #10 tablet 10/11/18 [Rx] Allergies/Adverse Reactions: Allergy/AdvReac Type Severity Reaction Status Date / Time codeine AdvReac Itching Verified 10/02/18 12:01 [From Tylenol-Codeine #3] hydrocodone [From [place]] AdvReac Itching Verified 10/02/18 12:01 propoxyphene AdvReac Nausea Verified 10/02/18 12:01 [From Darvocet-N] tramadol AdvReac See Verified 10/02/18 12:01 Comments Date of admission: 10/03/18 17:50 Primary care physician: Diane Rodriguez CNP Consults: 10/02/18 12:48 Consult to Podiatry [CONS] Stat Consulting Provider: [facility] Reason for Consult: Rt great toe DM ulcer fail outpt thpy. Followed by Dr. Ferrera who req admission for OR debridement 10/03 (per patient). Time Notified: 12:49 Call Completed: Yes 10/08/18 07:56 Consult to Infectious Diseases [CONS] Routine Consulting Provider: Infectious Disease Marie Reason for Consult: osteomyelitis Call Completed: Yes 10/08/18 09:31 Consult to Invasive Line Access Team [CONS] Routine Reason for Consult: Picc Line Insertion Line Type: PICC 10/08/18 17:45 Consult to Surgeon'S Assistant [CONS] Routine Reason for SW Consult: SNF 10/09/18 19:45 Consult to Diabetes Education [CONS] Routine Comment: Need for education Reason for Consult: A1c > 12.0 10/10/18 08:04 Consult to Physical Therapy [CONS] Routine Comment: Evaluate, develop and implement POC Reason for Consult: Insurance requesting eval for placement (patient going for IV abx/wound care) Does patient have active BEDREST order?: No Is patient medically & hemodynamically stable?: Yes Patient assessed for mobility or mobilized this visit?: No Discharging clinician: Milad Valentin Anticipated date of discharge: 10/11/18 - Constitutional Vitals: Temp Pulse Resp BP Pulse Ox 98.1 F 89 17 111/73 98 10/10/18 15:30 10/10/18 15:30 10/10/18 15:30 10/10/18 15:30 10/10/18 15:30 Exam: General: well-appearing and in no acute distress HEENT: Atraumatic, normocephalic, oropharynx clear with moist mucous membranes and no mucosal ulcerations. PERRLA Cardiovascular: RRR, no murmurs Lungs: Clear to auscultation bilaterally Abdomen: soft, non-tender MSK: ROM intact, no joint swelling noted Extremities: No edema. Left foot 2+ pedal pulses, R foot w wound wrapped in bandage following surgical closure. Sensation intact in toes Skin: warm, dry, intact other than bandaged foot Neuro: moves all extremities, no focal deficits. Psych: Appropriate mood and behavior. A&Ox3 - Patient Status Disposition: Transfer SNF Condition: Good Functional capacity at discharge: uses cane/walker Overall status at discharge: patient is progressing back to baseline - Discharge Instructions Follow Up With: Diane Rodriguez CNP [Primary Care Provider] - Sola Bryson CNP [Advanced Practice Nurse] - 10/22/18 2:40 pm Fbaian Ferrera DPM [Partnered Physician] - (Web request entered. Office will call with date and time of appointment.) Additional Instructions: Follow up in office 1 week s/p d/c. Do not change dressing, unless becomes saturated Do not get foot wet Use orthowedge shoe when ambulating <Bi Ruvalcaba - Last Filed: 10/11/18 19:41> Date of Encounter: 10/11/18 Hospital course: Ms. Zheng is a 43 year old female - Time Spent with Patient Total time spent providing and/or coordinating discharge services: Date of admission: 10/03/18 17:50 Primary care physician: Diane Rodriguez CNP Consults: 10/02/18 12:48 Consult to Podiatry [CONS] Stat Consulting Provider: [facility] Reason for Consult: Rt great toe DM ulcer fail outpt thpy. Followed by Dr. Ferrera who req admission for OR debridement 10/03 (per patient). Time Notified: 12:49 Call Completed: Yes 10/08/18 07:56 Consult to Infectious Diseases [CONS] Routine Consulting Provider: Infectious Disease Marie Reason for Consult: osteomyelitis Call Completed: Yes 10/08/18 09:31 Consult to Invasive Line Access Team [CONS] Routine Reason for Consult: Picc Line Insertion Line Type: PICC 10/08/18 17:45 Consult to Surgeon'S Assistant [CONS] Routine Reason for SW Consult: SNF 10/09/18 19:45 Consult to Diabetes Education [CONS] Routine Comment: Need for education Reason for Consult: A1c > 12.0 10/10/18 08:04 Consult to Physical Therapy [CONS] Routine Comment: Evaluate, develop and implement POC Reason for Consult: Insurance requesting eval for placement (patient going for IV abx/wound care) Does patient have active BEDREST order?: No Is patient medically & hemodynamically stable?: Yes Patient assessed for mobility or mobilized this visit?: No - Constitutional Vitals: Temp Pulse Resp BP Pulse Ox 98.3 F 97 17 104/71 97 10/11/18 15:08 10/11/18 15:08 10/11/18 15:08 10/11/18 15:08 10/11/18 15:08 - Attending Attestation I have seen and independently assessed this patient and I agree with plan as documented Exam Gen. NAD CVS. S1 S2 WNL Resp. CTAB Ext. Dressing in place Plan Sepsis 2/2 osteomyelitis. Plan to complete [facility] antibiotics at SNF. 35 minutes was spent discharging this patient Diabetic foot ulcer with osteomyelitis. See #1. Podiatry on board for debridement Date of discharge 10/11/18
[2018-10-11] MEDS: *HR* Heparin 5,000 UNIT/ML VIAL SQ SCH ×2 (05:18→17:49)
[2018-10-11 06:02] LABS: Basophils # 0.1 K/mcL (0.0-0.2); Eosinophils # 0.2 K/mcL (0.0-0.6); Eosinophils % 2.8 %; Hematocrit 34.2 % (35.3-44.9); Hemoglobin 11.2 g/dL (11.5-15.4); Immature Granulocytes % 0.7 % (0-4); Lymphocytes # 2.3 K/mcL (0.6-4.6); Lymphocytes % 31.2 %; Mean Corpuscular HGB Conc 32.7 g/dL (31.6-35.5); Mean Corpuscular Hemoglobin 30.9 pg (28.0-33.3); Mean Corpuscular Volume 94.2 fL (83.0-100.0); Mean Platelet Volume 9.7 fL (9.4-12.4); Monocytes # 0.5 K/mcL (0.0-1.3); Monocytes % 6.4 %; Neutrophils # 4.2 K/mcL (1.6-8.9); Platelet Count 401 K/mcL (140-400); Red Blood Count 3.63 M/mcL (3.82-4.97); Segmented Neutrophils % 57.9 %; White Blood Count 7.2 K/mcL (4.3-11.1)
[2018-10-11 06:10] LABS: BUN/Creatinine Ratio 10 (6-26); Blood Urea Nitrogen 6 mg/dL (6-20); Calcium 9.4 mg/dL (8.6-10.3); Carbon Dioxide 29 mEq/L (23-29); Chloride 99 mEq/L (98-107); Glucose 184 mg/dL (70-105); Osmolality,Calculated 300 (280-300); Potassium 4.3 mEq/L (3.5-5.1); Sodium 144 mEq/L (136-145); eGFR For African Americans > 60 (> 60); eGFR For Non-African Americans > 60 (> 60)
[2018-10-11] MEDS: Gabapentin 400 MG CAPSULE PO SCH ×3 (08:44→19:58)
[2018-10-11] MEDS: Insulin LISPRO 300 UNITS/3 ML VIAL SQ SCH ×6 (08:45→17:16)
[2018-10-11] MEDS: Fenofibrate 54 MG TABLET PO SCH (08:45)
[2018-10-11] MEDS: Insulin DETEMIR 100 UNIT/ML X5UNITS SQ SCH (08:55)
--- NOTE | 2018-10-11 09:00 | Internal Med Progress Note ---
<Milad Valentin L - Last Filed: 10/11/18 08:58> Hospitalist Progress Note - Encounter Date of Encounter: 10/11/18 Time of Encounter: 08:59 - Subjective Interval History: Patient seen and examined this morning. Patient sitting comfortable in bed eating breakfast. Reports no overnight events, afebrile. Patient report having some pain and right foot, but it is unchanged/improved slightly. Dressings clean and dry. Patient reports increased activity, including ambulation with shoe provided by podiatry. Denies headaches, fevers, chills, shortness of breath, chest pain, abdominal pain, constipation, diarrhea, changes in urin ation. - Exam Vitals: Temp Pulse Resp BP Pulse Ox 98.1 F 87 17 113/78 97 10/11/18 07:02 10/11/18 07:02 10/11/18 07:02 10/11/18 07:02 10/11/18 07:02 Exam: General: well-appearing and in no acute distress HEENT: Atraumatic, normocephalic; oropharynx clear with moist mucous membranes and no mucosal ulcerations. PERRLA Cardiovascular: RRR, no murmurs Lungs: Clear to auscultation bilaterally Abdomen: soft, non-tender MSK: ROM intact, no joint swelling noted Extremities: No edema. Left foot 2+ pedal pulses, R foot w wound wrapped in bandage following surgical closure. Sensation intact in toes Skin: warm, dry, intact other than bandaged foot Neuro: moves all extremities, no focal deficits. Psych: Appropriate mood and behavior. A&Ox3 - Assessment and Plan (1) Osteomyelitis Current Visit: Yes Status: Acute (2) Hypertension Current Visit: No Status: Chronic (3) Diabetes Current Visit: Yes Status: Chronic (4) Diabetic ulcer of toe of right foot Current Visit: Yes Status: Acute (5) Sepsis Current Visit: Yes Status: Resolved - Time Spent with Patient Total time spent is greater than 50% in coordination of care (as documented) at patient's floor/unit and/or counseling patient: Internal Medicine: Result - Labs CBC & Chem 7: 10/11/18 05:25 10/11/18 05:25 Labs: Short CBC 10/11/18 Range/Units 05:25 WBC 7.2 (4.3-11.1) K/mcL Hgb 11.2 L (11.5-15.4) g/dL Hct 34.2 L (35.3-44.9) % Plt Count 401 H (140-400) K/mcL Neutrophils # 4.2 (1.6-8.9) K/mcL BMP 10/11/18 05:25 Sodium 144 Potassium 4.3 Chloride 99 Carbon Dioxide 29 BUN 6 Creatinine 0.63 Glucose 184 H Calcium 9.4 Consult Discharge Plan - Plan Additional Instructions: Follow up in office 1 week s/p d/c. Do not change dressing, unless becomes saturated Do not get foot wet Use orthowedge shoe when ambulating Referrals: Diane Rodriguez CNP [Primary Care Provider] - Sola Bryson CNP [Advanced Practice Nurse] - 10/22/18 2:40 pm Prescriptions: cefTRIAXone [Rocephin] 2,000 mg IVPB DAILY 39 Days #39 vial Vancomycin [Vancocin] 1,750 mg IVPB Q12H 34 Days #68 iv.yanely <Bi Ruvalcaba - Last Filed: 10/11/18 14:13> Hospitalist Progress Note - Encounter Date of Encounter: 10/11/18 - Exam Vitals: Temp Pulse Resp BP Pulse Ox 98.9 F 95 17 104/69 97 10/11/18 11:28 10/11/18 11:28 10/11/18 11:28 10/11/18 11:28 10/11/18 11:28 - Time Spent with Patient Total time spent is greater than 50% in coordination of care (as documented) at patient's floor/unit and/or counseling patient: Internal Medicine: Result - Labs CBC & Chem 7: 10/11/18 05:25 10/11/18 05:25 Labs: Short CBC 10/11/18 Range/Units 05:25 WBC 7.2 (4.3-11.1) K/mcL Hgb 11.2 L (11.5-15.4) g/dL Hct 34.2 L (35.3-44.9) % Plt Count 401 H (140-400) K/mcL Neutrophils # 4.2 (1.6-8.9) K/mcL BMP 10/11/18 05:25 Sodium 144 Potassium 4.3 Chloride 99 Carbon Dioxide 29 BUN 6 Creatinine 0.63 Glucose 184 H Calcium 9.4 - Attending Attestation I have seen and independently assessed this patient and I agree with plan as documented Plan Sepsis 2/2 osteomyelitis. 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 See #1. Podiatry on board for debridement <Milad Valentin L - Last Filed: 10/11/18 08:58> (1) Osteomyelitis Qualifiers: Osteomyelitis type: acute hematogenous Osteomyelitis location: foot Laterality: right Qualified Code(s): M86.071 - Acute hematogenous osteomyelitis, right ankle and foot (2) Hypertension Qualifiers: Hypertension type: essential hypertension Qualified Code(s): I10 - Essential (primary) hypertension (3) Diabetes Qualifiers: Diabetes mellitus type: type 2 Diabetes mellitus usp insulin use: with usp use Diabetes mellitus complication status: with skin complications Diabetes mellitus complication detail: with foot ulcer Qualified Code(s): E11.621 - Type 2 diabetes mellitus with foot ulcer; L97.509 - Non-pressure chronic ulcer of other part of unspecified foot with unspecified severity; Z79.4 - retirement (current) use of insulin (4) Diabetic ulcer of toe of right foot Qualifiers: Diabetes mellitus type: type 2 Non-pressure ulcer stage: unspecified non- pressure ulcer stage Qualified Code(s): E11.621 - Type 2 diabetes mellitus with foot ulcer; L97.519 - Non-pressure chronic ulcer of other part of right foot with unspecified severity (5) Sepsis Qualifiers: Sepsis type: sepsis due to unspecified organism Qualified Code(s): A41.9 - Sepsis, unspecified organism
--- NOTE | 2018-10-11 11:07 | Infectious Disease Progress No ---
ID Progress Note Date of Encounter: 10/11/18 Time of Encounter: 10:10 - Subjective Subjective: Patient seen and examined. No acute events noted overnight. Patient complains of mild right foot pain. Denies fevers, chills, rigors. Denies chest pain, shortness of breath, or cough. Reports some intermittent nausea, but denies any vomiting or diarrhea. States last bowel movement was yesterday. Denies abdominal pain or urinary complaints. Denies oral thrush or skin rashes. States appetite is good. Pending ECF placement. - Objective CBC & Chem 7: 10/11/18 05:25 10/11/18 05:25 - Line Documentation Line Documentation: PICC Line (Right upper extremity) - Exam Vitals: Temp Pulse Resp BP Pulse Ox 98.1 F 87 17 113/78 97 10/11/18 07:02 10/11/18 07:02 10/11/18 07:02 10/11/18 07:02 10/11/18 07:02 Exam: Head: Atraumatic, normal inspection, normocephalic. Eye: EOMI, PERRLA, no scleral icterus noted. ENT: Mucous membranes moist. No odontogenic infection noted. Neck: Normal inspection, no meningismus. Respiratory: Clear to auscultation. No rales, respiratory distress, rhonchi, or wheezes noted. Cardiovascular: Regular rate and rhythm, S1 and S2 audible. No murmurs, rubs, or gallops. GI: Soft, nondistended, normal bowel sounds. Extremities:No joint swelling, pedal edema, or tenderness noted. Right foot dressing C/D/I. Neurological: Alert, oriented 3, no focal deficits. Psychiatric: normal affect, normal mood. Skin: Dry, intact, warm. Normal color. No rashes. - Assessment and Plan (1) Sepsis Current Visit: Yes Status: Resolved The patient had 2 sepsis criteria on admission. Likely secondary to osteomyelitis of the foot. Resolved. WBC normal. Tachycardia resolved. No blood cultures were obtained on admission. Qualifiers: Sepsis type: sepsis due to unspecified organism Qualified Code(s): A41.9 - Sepsis, unspecified organism SNOMED Code(s): 94029169 (2) Osteomyelitis Current Visit: Yes Status: Acute Location: Distal phalanx of right great toe and possible proximal first phalanx. Causative organism: MRSA and Proteus mirabilis per wound cultures. No bone cultures have been obtained. X-ray 09/25/18 was negative for osteomyelitis. CT scan of the right foot 10/05/18 showed possible osteo-myelitis of the first phalanx. MRI of the right foot 10/06/18 showed marrow signal changes of the distal phalanx of the great toe consistent with zoster myelitis given the adjacent deep ulceration. There was matching marrow edema of the proximal first phalanx without significant T1 marrow signal change. Findings may reflect reactive infectious osteitis versus early changes of osteo-myelitis given the adjacent soft tissue wound. Podiatry consult. Status post I&D 10/03/[address] Ferrera. Status post delayed closure 10/09/[address] Ferrera. Operative note reviewed. Path report pending. Preop ESR 66, CRP 125. Currently on vancomycin and Rocephin. Qualifiers: Osteomyelitis type: acute hematogenous Osteomyelitis location: foot Laterality: right Qualified Code(s): M86.071 - Acute hematogenous osteomyelitis, right ankle and foot SNOMED Code(s): 65372968 (3) Cellulitis Current Visit: Yes Status: Acute Location: Right foot and great toe. Likely secondary to osteomyelitis. Failed outpatient oral antibiotics. Improved. Causative organism: MRSA and Proteus mirabilis per wound cultures. Podiatry consult. Status post I&D 10/03/[address] Ferrera. No intra-op cultures or path specimens were sent. Currently on Vanc and Rocephin. Qualifiers: Site of cellulitis: extremity Site of cellulitis of extremity: toe Laterality: right Qualified Code(s): L03.031 - Cellulitis of right toe SNOMED Code(s): 257174923 (4) Diabetic ulcer of toe of right foot Current Visit: Yes Status: Acute Location: Right great toe. Etiology: Unclear. Podiatry consulted and following. Qualifiers: Diabetes mellitus type: type 2 Non-pressure ulcer stage: unspecified non- pressure ulcer stage Qualified Code(s): E11.621 - Type 2 diabetes mellitus with foot ulcer; L97.519 - Non-pressure chronic ulcer of other part of right foot with unspecified severity SNOMED Code(s): 029419646, 119773752, 200354550 (5) Diabetes Current Visit: Yes Status: Chronic Recommend aggressive glucose monitoring and control to promote wound healing and prevent reinfection. Management per the primary team. 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 Continue vancomycin IV. Pharmacy to dose. Goal trough approximately 15. Continue Rocephin 2 g IV daily. Duration of treatment is on the clinical picture, but likely 6 weeks. Monitor renal function for drug toxicity and does adjust antibiotics. We will need weekly CBC, BUN/creatinine, ESR, and CRP, and Vanc trough. Will need weekly PICC care per protocol. Follow up with ID 10/22/18 at 1440. Consult Discharge Plan - Plan Additional Instructions: Follow up in office 1 week s/p d/c. Do not change dressing, unless becomes saturated Do not get foot wet Use orthowedge shoe when ambulating Referrals: Diane Rodriguez CNP [Primary Care Provider] - Sola Bryson CNP [Advanced Practice Nurse] - 10/22/18 2:40 pm Prescriptions: OxyCODONE/APAP 5/325 [Percocet 5/325 MG] 1 each PO Q8H PRN 4 Days #10 tablet PRN Reason: moderate to severe pain cefTRIAXone [Rocephin] 2,000 mg IVPB DAILY 39 Days #39 vial Vancomycin [Vancocin] 1,750 mg IVPB Q12H 34 Days #68 iv.kenyn - Attending Attestation I have personally performed a face to face evaluation on this patient. I have reviewed and agree with the care plan. History and Exam by me shows: Assessment and plan: 1.Sepsis 2.Osteomyelitis of the right great toe and proximal first phalanx causative organism MRSA Proteus mirabilis status post I&D 10/03/2018 3.Cellulitis 4.Diabetic ulcer of the right great toe 5.Hypertension Recommendations: Wound care and activity for the podiatry team. Continue vancomycin IV. Pharmacy to dose. Goal trough approximately 15. Continue Rocephin 2 g IV daily. Duration of treatment is on the clinical picture, but likely 6 weeks. Monitor renal function for drug toxicity and does adjust antibiotics. We will need weekly CBC, BUN/creatinine, ESR, and CRP, and Vanc trough. Will need weekly PICC care per protocol. Follow up with ID 10/22/18 at 1440.
[2018-10-11] MEDS: cefTRIAXone 2,000 MG in Water for inj. (sterile) 20 ML IVP SCH (12:18)
--- NOTE | 2018-10-11 14:48 | Internal Med Progress Note ---
<Milad Valentin L - Last Filed: 10/11/18 14:58> Hospitalist Progress Note - Encounter Date of Encounter: 10/11/18 Time of Encounter: 08:30 - Subjective Interval History: Patient seen and examined. Feeling well this morning, no overnight events. Afebrile. She reports some pain remains in the right foot. Managed well with current pain medicine regimen. Denies fevers, chills, headache, shortness breath, chest pain, abdominal pain, constipation, diarrhea, changes in urination. Awaiting placement. - Exam Vitals: Temp Pulse Resp BP Pulse Ox 98.9 F 95 17 104/69 97 10/11/18 11:28 10/11/18 11:28 10/11/18 11:28 10/11/18 11:28 10/11/18 11:28 Exam: General: well-appearing and in no acute distress HEENT: Atraumatic, normocephalic, oropharynx clear with moist mucous membranes and no mucosal ulcerations. PERRLA Cardiovascular: RRR, no murmurs Lungs: Clear to auscultation bilaterally Abdomen: soft, non-tender MSK: ROM intact, no joint swelling noted Extremities: No edema. Left foot 2+ pedal pulses, R foot w wound wrapped in bandage following surgical closure. Sensation intact in toes Skin: warm, dry, intact other than bandaged foot Neuro: moves all extremities, no focal deficits. Psych: Appropriate mood and behavior. A&Ox3 - Assessment and Plan (1) Osteomyelitis Current Visit: Yes Status: Acute Assessment and Plan: Infected diabetic foot ulcer and abscess: underwent intraop I&D/debridement 10/03 by podiatry. Cultures from clinic on 10/02 growing MRSA and proteus. CT showing possible osteo of plantar 1st MTP - ID consult: following ID recs for Abx - Cont IV vanc Day 9, will likely need 6 weeks of therapy - Rocephin Day 4, will likely need 6 weeks of therapy - MRI: Marrow edema in 1st toe, indicating osteomyelitis - Podiatry performed closure 10/09/18 - Will f/u with Podiatry for wound care outpatient - Will follow up with Infectious disease outpatient (2) Hypertension Current Visit: No Status: Chronic Assessment and Plan: Holding home lisinopril/hctz today due to contrast and vanc use, will monitor pressures. BP stable. (3) Diabetes Current Visit: Yes Status: Chronic Assessment and Plan: Uncontrolled, A1C 12.5 Positive for peripheral neuropathy Continue home basal insulin, +SSI (4) Diabetic ulcer of toe of right foot Current Visit: Yes Status: Acute Assessment and Plan: As above (5) Sepsis Current Visit: Yes Status: Resolved Assessment and Plan: Resolved DVT Prophylaxis: Sub-Q heparin - Summary of Assessment and Plan Summary of Assessment and Plan: Abigail Zheng is a 43 F w hx DM2, HTN, HLD, GERD, anx/dep/bpd, who presented from wound clinic for failed outpatient management of infected diabetic foot ulcer causing sepsis. Pt underwent limited debridement in office with cultures obtained, then sent to ED for further workup. Admitted for IV abx and podiatry consultation. Podiatry performed surgery for dibridement/incision & drainage. Le ft open. MRI indicated osteomyelitis.Podiatry closed wound. Pt wants ECF placement for clean environment upon DC. - Time Spent with Patient Total time spent is greater than 50% in coordination of care (as documented) at patient's floor/unit and/or counseling patient: Internal Medicine: Result - Labs CBC & Chem 7: 10/11/18 05:25 10/11/18 05:25 Labs: Short CBC 10/11/18 Range/Units 05:25 WBC 7.2 (4.3-11.1) K/mcL Hgb 11.2 L (11.5-15.4) g/dL Hct 34.2 L (35.3-44.9) % Plt Count 401 H (140-400) K/mcL Neutrophils # 4.2 (1.6-8.9) K/mcL BMP 10/11/18 05:25 Sodium 144 Potassium 4.3 Chloride 99 Carbon Dioxide 29 BUN 6 Creatinine 0.63 Glucose 184 H Calcium 9.4 Consult Discharge Plan - Plan Additional Instructions: Follow up in office 1 week s/p d/c. Do not change dressing, unless becomes saturated Do not get foot wet Use orthowedge shoe when ambulating Referrals: Diane Rodriguez CNP [Primary Care Provider] - Sola Bryson CNP [Advanced Practice Nurse] - 10/22/18 2:40 pm Prescriptions: cefTRIAXone [Rocephin] 2,000 mg IVPB DAILY 39 Days #39 vial Vancomycin [Vancocin] 1,750 mg IVPB Q12H 34 Days #68 iv.soln <Bi Ruvalcaba A - Last Filed: 10/11/18 15:19> Hospitalist Progress Note - Encounter Date of Encounter: 10/11/18 - Exam Vitals: Temp Pulse Resp BP Pulse Ox 98.3 F 97 17 104/71 97 10/11/18 15:08 10/11/18 15:08 10/11/18 15:08 10/11/18 15:08 10/11/18 15:08 - Time Spent with Patient Total time spent is greater than 50% in coordination of care (as documented) at patient's floor/unit and/or counseling patient: Internal Medicine: Result - Labs CBC & Chem 7: 10/11/18 05:25 10/11/18 05:25 Labs: Short CBC 10/11/18 Range/Units 05:25 WBC 7.2 (4.3-11.1) K/mcL Hgb 11.2 L (11.5-15.4) g/dL Hct 34.2 L (35.3-44.9) % Plt Count 401 H (140-400) K/mcL Neutrophils # 4.2 (1.6-8.9) K/mcL BMP 10/11/18 05:25 Sodium 144 Potassium 4.3 Chloride 99 Carbon Dioxide 29 BUN 6 Creatinine 0.63 Glucose 184 H Calcium 9.4 - Attending Attestation I have seen and independently assessed this patient and I agree with plan as documented Plan Sepsis 2/2 osteomyelitis. Plan to complete usp antibiotics at SNF Diabetic foot ulcer with osteomyelitis. See #1. 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 insulin use: with termite exterminator helper use Diabetes mellitus complication status: with skin complications Diabetes mellitus complication detail: with foot ulcer Qualified Code(s): E1 1.621 - Type 2 diabetes mellitus with foot ulcer; L97.509 - Non-pressure chronic ulcer of other part of unspecified foot with unspecified severity; Z79.4 - termite treater helper (current) use of insulin (4) Diabetic ulcer of toe of right foot Qualifiers: Diabetes mellitus type: type 2 Non-pressure ulcer stage: unspecified non- pressure ulcer stage Qualified Code(s): E11.621 - Type 2 diabetes mellitus with foot ulcer; L97.519 - Non-pressure chronic ulcer of other part of right foot with unspecified severity (5) Sepsis Qualifiers: Sepsis type: sepsis due to unspecified organism Qualified Code(s): A41.9 - Sepsis, unspecified organism
[2018-10-11 15:11] VITALS: BP 104/71
[2018-10-11] MEDS: *HR* OxyCODONE/APAP 5/325 TABLET PO PRN (15:28)
[2018-10-11] MEDS ORDERED: *HR* OxyCODONE/APAP 5/325 TABLET PO PRN (15:39)
--- NOTE | 2018-10-11 17:37 | Physician Discharge Referral ---
[facility] Referral Info Transfer To: f Provider in Charge after Transfer: PCP - Diagnosis (1) Osteomyelitis Priority: Primary Status: Acute (2) Hypertension Priority: Secondary Status: Chronic (3) Diabetes Priority: Secondary Status: Chronic (4) Diabetic ulcer of toe of right foot Priority: Primary Status: Acute (5) Sepsis Priority: Primary Status: Resolved - Transfer Medications Prescriptions: OxyCODONE/APAP 5/325 [Percocet 5/325 MG] 1 each PO Q8H PRN 4 Days #10 tablet PRN Reason: moderate to severe pain cefTRIAXone [Rocephin] 2,000 mg IVPB DAILY 39 Days #39 vial Vancomycin [Vancocin] 1,750 mg IVPB Q12H 34 Days #68 iv.soln Home Medications: Atorvastatin Calcium 80 mg PO QPM 10/02/18 [History] Dicyclomine [Bentyl] 10 mg PO QID PRN 10/02/18 [History] Fenofibrate Nanocrystallized [Fenofibrate] 160 mg PO DAILY 10/02/18 [History] Gabapentin [Neurontin] 800 mg PO TID 10/02/18 [History] Gemfibrozil 600 mg PO BID 10/02/18 [History] Hyoscyamine SL [Levsin Sl] 0.125 mg SL TID PRN 10/02/18 [History] Insulin ASPART [Novolog] 15 - 20 units SQ TIDAC 10/02/18 [History] Insulin Glargine,Hum.rec.anlog [Toujeo Solostar] 70 units SQ HS 10/02/18 [History] Lisinopril-HCTZ 20-12.5 [Prinzide 20-12.5] 1 tab PO DAILY 10/02/18 [History] Metformin HCl 500 mg PO BID 10/02/18 [History] Omeprazole [PriLOSEC] 40 mg PO DAILY 10/02/18 [History] Trazodone HCl 100 mg PO HS PRN 10/02/18 [History] Vancomycin [Vancocin] 1,750 mg IVPB Q12H 34 Days #68 iv.soln 10/10/18 [Rx] cefTRIAXone [Rocephin] 2,000 mg IVPB DAILY 39 Days #39 vial 10/10/18 [Rx] OxyCODONE/APAP 5/325 [Percocet 5/325 MG] 1 each PO Q8H PRN 4 Days #10 tablet 10/11/18 [Rx] Allergies/Adverse Reactions: Allergy/AdvReac Type Severity Reaction Status Date / Time codeine AdvReac Itching Verified 10/02/18 12:01 [From Tylenol-Codeine #3] hydrocodone [From Adger] AdvReac Itching Verified 10/02/18 12:01 propoxyphene AdvReac Nausea Verified 10/02/18 12:01 [From Darvocet-N] tramadol AdvReac See Verified 10/02/18 12:01 Comments - Respiratory Orders Smoking Cessation: Smoking cessation has been advised. For more information, call the [place] Tobacco Quit Line at 8-374-KFAQNOW. CERTIFICATION: I certify that the transfer of the above named patient to an Extended Care Facility is necessary for the continuing treatment of the diagnosis listed. The above information is true and accurate reflection of patient's current condition. Confidential - Redisclosure prohibited without a patient's written consent.
--- NOTE | 2018-10-11 19:50 | Internal Med Progress Note ---
<Milad Valentin - Last Filed: 10/11/18 19:48> Hospitalist Progress Note - Encounter Date of Encounter: 10/11/18 Time of Encounter: 08:00 - Subjective Interval History: Seen and examined. No overnight events. Afebrile. Denies fevers, ZACARIAS, SOB, abdominal pain. - Exam Vitals: Temp Pulse Resp BP Pulse Ox 98.3 F 97 17 104/71 97 10/11/18 15:08 10/11/18 15:08 10/11/18 15:08 10/11/18 15:08 10/11/18 15:08 Exam: General: well-appearing and in no acute distress. lying comfortably in bed HEENT: Atraumatic, oropharynx clear with moist mucous membranes and no mucosal ulcerations. PERRLA Cardiovascular: RRR, no murmurs Lungs: Clear to auscultation bilaterally Abdomen: soft, non-tender MSK: ROM intact, no joint swelling noted Extremities: No edema. Left foot 2+ pedal pulses, R foot w wound wrapped in bandage following surgical closure. Sensation intact in toes Skin: warm, dry, intact other than bandaged foot Neuro: moves all extremities, no focal deficits. Psych: Appropriate mood and behavior. A&Ox3 - Assessment and Plan (1) Osteomyelitis Current Visit: Yes Status: Acute Assessment and Plan: Infected diabetic foot ulcer and abscess: underwent intraop I&D/debridement 10/03 by podiatry. Cultures from clinic on 10/02 growing MRSA and proteus. CT showing possible osteo of plantar 1st MTP - ID consult: following ID recs for Abx - Cont IV vanc Day 8, will likely need 6 weeks of therapy - Rocephin Day 3, will likely need 6 weeks of therapy - MRI: Marrow edema in 1st toe, indicating osteomyelitis - Podiatry performed closure yesterday - Will f/u with Podiatry for wound care outpatient - Will follow up with Infectious disease outpatient - Awaiting placement (2) Hypertension Current Visit: No Status: Chronic Assessment and Plan: holding home lisinopril/hctz today due to contrast and vanc use, will monitor pressures. BP stable (3) Diabetes Current Visit: Yes Status: Chronic Assessment and Plan: uncontrolled, A1C 12.5 w peripheral neuropathy, continue home basal insulin, +SSI (4) Diabetic ulcer of toe of right foot Current Visit: Yes Status: Acute Assessment and Plan: As above (5) Sepsis Current Visit: Yes Status: Resolved Assessment and Plan: Resolved DVT Prophylaxis: Sub-q heparin - Summary of Assessment and Plan Summary of Assessment and Plan: Abigail Zheng is a 43 F w hx DM2, HTN, HLD, GERD, anx/dep/bpd, who presented from wound clinic for failed outpatient management of infected diabetic foot ulcer causing sepsis. Pt underwent limited debridement in office with cultures obtained, then sent to ED for further workup. Admitted for IV abx and podiatry c onsultation. Podiatry performed surgery for dibridement/incision & drainage. Left open. MRI indicated osteomyelitis.Podiatry closed wound. Pt wants ECF placement for clean environment upon DC. - Time Spent with Patient Total time spent is greater than 50% in coordination of care (as documented) at patient's floor/unit and/or counseling patient: Internal Medicine: Result - Labs CBC & Chem 7: 10/11/18 05:25 10/11/18 05:25 Labs: Short CBC 10/11/18 Range/Units 05:25 WBC 7.2 (4.3-11.1) K/mcL Hgb 11.2 L (11.5-15.4) g/dL Hct 34.2 L (35.3-44.9) % Plt Count 401 H (140-400) K/mcL Neutrophils # 4.2 (1.6-8.9) K/mcL BMP 10/11/18 05:25 Sodium 144 Potassium 4.3 Chloride 99 Carbon Dioxide 29 BUN 6 Creatinine 0.63 Glucose 184 H Calcium 9.4 Consult Discharge Plan - Plan Additional Instructions: Follow up in office 1 week s/p d/c. Do not change dressing, unless becomes saturated Do not get foot wet Use orthowedge shoe when ambulating Referrals: Diane Rodriguez CNP [Primary Care Provider] - Sola Bryson CNP [Advanced Practice Nurse] - 10/22/18 2:40 pm Fabian Ferrera DPM [Partnered Physician] - (Web request entered. Office will call with date and time of appointment.) Prescriptions: OxyCODONE/APAP 5/325 [Percocet 5/325 MG] 1 each PO Q8H PRN 4 Days #10 tablet PRN Reason: moderate to severe pain cefTRIAXone [Rocephin] 2,000 mg IVPB DAILY 39 Days #39 vial Vancomycin [Vancocin] 1,750 mg IVPB Q12H 34 Days #68 iv.yanely <Bi Ruvalcaba - Last Filed: 10/11/18 19:57> Hospitalist Progress Note - Encounter Date of Encounter: 10/11/18 - Exam Vitals: Temp Pulse Resp BP Pulse Ox 98.3 F 97 17 104/71 97 10/11/18 15:08 10/11/18 15:08 10/11/18 15:08 10/11/18 15:08 10/11/18 15:08 - Time Spent with Patient Total time spent is greater than 50% in coordination of care (as documented) at patient's floor/unit and/or counseling patient: Internal Medicine: Result - Labs CBC & Chem 7: 10/11/18 05:25 10/11/18 05:25 Labs: Short CBC 10/11/18 Range/Units 05:25 WBC 7.2 (4.3-11.1) K/mcL Hgb 11.2 L (11.5-15.4) g/dL Hct 34.2 L (35.3-44.9) % Plt Count 401 H (140-400) K/mcL Neutrophils # 4.2 (1.6-8.9) K/mcL BMP 10/11/18 05:25 Sodium 144 Potassium 4.3 Chloride 99 Carbon Dioxide 29 BUN 6 Creatinine 0.63 Glucose 184 H Calcium 9.4 - Attending Attestation I have seen and independently assessed this patient and I agree with plan as documented Exam Gen. NAD CVS. S1 S2 WNL Resp. CTAB Ext. Dressing in place Plan Sepsis 2/2 osteomyelitis. Plan to complete group home antibiotics at SNF. 35 minutes was spent discharging this patient Diabetic foot ulcer with osteomyelitis. See #1. 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 parts counterman insulin use: with group home use Diabetes mellitus complication status: with skin complications Diabetes mellitus complication detail: with foot ulcer Qualified Code(s): E11.621 - Type 2 diabetes mellitus with foot ulcer; L97.509 - Non-pressure chronic ulcer of other part of unspecified foot with unspecified severity; Z79.4 - group home (current) use of insulin (4) Diabetic ulcer of toe of right foot Qualifiers: Diabetes mellitus type: type 2 Non-pressure ulcer stage: unspecified non- pressure ulcer stage Qualified Code(s): E11.621 - Type 2 diabetes mellitus with foot ulcer; L97.519 - Non-pressure chronic ulcer of other part of right foot with unspecified severity (5) Sepsis Qualifiers: Sepsis type: sepsis due to unspecified organism Qualified Code(s): A41.9 - Sepsis, unspecified organism
[2018-10-11] MEDS ORDERED: Aminoglycoside Consult 1 EACH MC ONE (20:50)
== END 2018-10-11 20:51 | DRG 720 ==
LOC: CDU 11:51 → EMEROOARM 11:51 → SUATTDRO 14:31 → CDU 15:32 → 3ANU 10-03 17:49
PROVIDERS: ADMIT Internal Medicine; ATTEND Internal Medicine

== ENCOUNTER 2018-11-05 11:14 | Observation (INO) ==
[2018-11-05] MEDS ORDERED: 0.9 % Sodium Chloride 1,000 ML IVC ONE ×2 (11:29→12:34)
[2018-11-05 12:05] LABS: Basophils # 0.1 K/mcL (0.0-0.2); Basophils % 1.4 %; Eosinophils # 0.2 K/mcL (0.0-0.6); Eosinophils % 2.6 %; Hematocrit 33.3 % (35.3-44.9); Hemoglobin 10.6 g/dL (11.5-15.4); Immature Granulocytes % 0.2 % (0-4); Lymphocytes # 1.4 K/mcL (0.6-4.6); Lymphocytes % 21.2 %; Mean Corpuscular HGB Conc 31.8 g/dL (31.6-35.5); Mean Corpuscular Hemoglobin 29.4 pg (28.0-33.3); Mean Corpuscular Volume 92.2 fL (83.0-100.0); Mean Platelet Volume 10.4 fL (9.4-12.4); Monocytes # 0.4 K/mcL (0.0-1.3); Monocytes % 5.6 %; Neutrophils # 4.5 K/mcL (1.6-8.9); Platelet Count 376 K/mcL (140-400); Red Blood Count 3.61 M/mcL (3.82-4.97); White Blood Count 6.6 K/mcL (4.3-11.1)
[2018-11-05 12:31] LABS: Calcium 9.5 mg/dL (8.6-10.3); Magnesium 1.5 mg/dL (1.6-2.6); Potassium 4.7 mEq/L (3.5-5.1)
[2018-11-05] MEDS ORDERED: cefTRIAXone 1,000 MG in Water for inj. (sterile) 10 ML IVP ONE (12:34)
[2018-11-05 12:40] LABS: Bilirubin,Urine Negative (Negative); Blood,Urine Negative (Negative); Clarity,Urine Clear (Clear); Color,Urine Yellow (Yellow); Glucose,Urine (UA) >=1000 mg/dL (Normal); Ketones,Urine Negative (Negative); Leukocyte Esterase,Urine Small (Negative); Nitrite,Urine Negative (Negative); PH,Urine 7.5 pH Units (5.0-8.0); Protein,Urine Trace mg/dL (Neg-Trace); Specific Gravity,Urine 1.017 (1.010-1.025); Urobilinogen,Urine Normal (Normal)
[2018-11-05 12:41] LABS: Bacteria,Urine None Seen per hpf (None-Few); Hyaline Casts,Urine None Seen per lpf (None-Few); Squamous Epithelial Cell,Urine Many per lpf (None-Few); WBC,Urine 15-30 per hpf (0-3)
[2018-11-05] MEDS ORDERED: Naloxone 0.4 MG/ML INJ IVP PRN (13:26)
[2018-11-05] MEDS ORDERED: D5% in Water 1,000 ML IVC PRN (13:55)
[2018-11-05] MEDS ORDERED: Dextrose Gel 15 GM/37.5 ML TUBE PO PRN ×2 (13:55)
[2018-11-05] MEDS ORDERED: *HR* Dextrose 50 % in Water (Syg) 50 ML SYRINGE IVP PRN (13:55)
[2018-11-05] MEDS ORDERED: Hyoscyamine SL 0.125 MG TAB.SUBL SL PRN (14:10)
[2018-11-05] MEDS ORDERED: traZODone 50 MG TABLET PO PRN (14:10)
[2018-11-05] MEDS: Ondansetron ODT 4 MG TAB.RAPDIS SL SCH (16:42)
[2018-11-05] MEDS: Insulin LISPRO 300 UNITS/3 ML VIAL SQ SCH ×2 (17:11→22:41)
[2018-11-05] MEDS: Insulin DETEMIR 100 UNIT/ML X5UNITS SQ SCH (21:34)
[2018-11-06] MEDS: Ondansetron ODT 4 MG TAB.RAPDIS SL SCH ×4 (02:13→23:41)
[2018-11-06 04:53] LABS: Basophils # 0.1 K/mcL (0.0-0.2); Basophils % 1.8 %; Eosinophils # 0.2 K/mcL (0.0-0.6); Hematocrit 31.4 % (35.3-44.9); Hemoglobin 10.1 g/dL (11.5-15.4); Immature Granulocytes % 0.3 % (0-4); Lymphocytes % 32.3 %; Mean Corpuscular HGB Conc 32.2 g/dL (31.6-35.5); Mean Corpuscular Hemoglobin 29.3 pg (28.0-33.3); Monocytes # 0.4 K/mcL (0.0-1.3); Monocytes % 5.9 %; Neutrophils # 3.5 K/mcL (1.6-8.9); Platelet Count 385 K/mcL (140-400); Red Blood Count 3.45 M/mcL (3.82-4.97); Red Cell Distribution Width 12.1 % (11.5-14.5); Segmented Neutrophils % 56.7 %; White Blood Count 6.2 K/mcL (4.3-11.1)
[2018-11-06 05:12] LABS: Calcium 9.4 mg/dL (8.6-10.3); Magnesium 2.1 mg/dL (1.6-2.6); Potassium 3.9 mEq/L (3.5-5.1)
[2018-11-06] MEDS: Fenofibrate 54 MG TABLET PO SCH (08:19)
[2018-11-06] MEDS: Lactobacillus 1 EACH CAP.SPRINK PO SCH (08:19)
[2018-11-06] MEDS: Insulin LISPRO 300 UNITS/3 ML VIAL SQ SCH ×4 (08:22→20:23)
[2018-11-06] MEDS ORDERED: cefTRIAXone 2,000 MG in 0.9 % Sodium Chloride Mini Bag 100 ML IVPB SCH (09:00)
[2018-11-06] MEDS ORDERED: 0.9 % Sodium Chloride 1,000 ML IVC SCH (10:15)
[2018-11-06] MEDS: Insulin DETEMIR 100 UNIT/ML X5UNITS SQ SCH (20:23)
[2018-11-07 02:03] LABS: Basophils # 0.1 K/mcL (0.0-0.2); Eosinophils # 0.2 K/mcL (0.0-0.6); Hematocrit 32.8 % (35.3-44.9); Hemoglobin 10.7 g/dL (11.5-15.4); Immature Granulocytes % 0.3 % (0-4); Lymphocytes # 2.3 K/mcL (0.6-4.6); Lymphocytes % 34.3 %; Mean Corpuscular HGB Conc 32.6 g/dL (31.6-35.5); Mean Corpuscular Hemoglobin 30.4 pg (28.0-33.3); Mean Corpuscular Volume 93.2 fL (83.0-100.0); Mean Platelet Volume 10.4 fL (9.4-12.4); Monocytes # 0.4 K/mcL (0.0-1.3); Monocytes % 6.5 %; Neutrophils # 3.6 K/mcL (1.6-8.9); Platelet Count 383 K/mcL (140-400); Red Blood Count 3.52 M/mcL (3.82-4.97); Red Cell Distribution Width 12.1 % (11.5-14.5); Segmented Neutrophils % 53.9 %; White Blood Count 6.6 K/mcL (4.3-11.1)
[2018-11-07 02:18] LABS: Calcium 9.8 mg/dL (8.6-10.3); Potassium 4.1 mEq/L (3.5-5.1)
[2018-11-07] MEDS: Insulin LISPRO 300 UNITS/3 ML VIAL SQ SCH ×4 (07:46→20:22)
[2018-11-07] MEDS: Ondansetron ODT 4 MG TAB.RAPDIS SL SCH ×2 (08:33→17:04)
[2018-11-07] MEDS: Fenofibrate 54 MG TABLET PO SCH (08:34)
[2018-11-07] MEDS: Lactobacillus 1 EACH CAP.SPRINK PO SCH (08:34)
[2018-11-07] MEDS ORDERED: Linezolid 600 MG TABLET PO SCH (09:00)
[2018-11-07] MEDS: 0.9 % Sodium Chloride 1,000 ML IVC SCH ×2 (11:00→21:49)
[2018-11-07] MEDS: *HR* Promethazine 25 MG/ML VIAL IVP PRN (11:54)
[2018-11-07] MEDS: Ibuprofen 400 MG TABLET PO PRN (11:55)
[2018-11-07 15:53] LABS: Calcium 9.7 mg/dL (8.6-10.3); Potassium 3.8 mEq/L (3.5-5.1)
[2018-11-07] MEDS: *HR* Heparin 5,000 UNIT/ML VIAL SQ SCH (18:14)
[2018-11-07] MEDS: Insulin DETEMIR 100 UNIT/ML X5UNITS SQ SCH (20:22)
[2018-11-08] MEDS: *HR* Promethazine 25 MG/ML VIAL IVP PRN (00:07)
[2018-11-08] MEDS: Ondansetron ODT 4 MG TAB.RAPDIS SL SCH ×3 (00:09→16:49)
[2018-11-08 03:33] LABS: Calcium 9.6 mg/dL (8.6-10.3); Potassium 3.8 mEq/L (3.5-5.1)
[2018-11-08] MEDS: *HR* Heparin 5,000 UNIT/ML VIAL SQ SCH ×2 (05:43→17:38)
[2018-11-08] MEDS: Insulin LISPRO 300 UNITS/3 ML VIAL SQ SCH ×4 (07:39→22:21)
[2018-11-08] MEDS: Ibuprofen 400 MG TABLET PO PRN ×3 (08:16→22:21)
[2018-11-08] MEDS: Fenofibrate 54 MG TABLET PO SCH (08:16)
[2018-11-08] MEDS: Lactobacillus 1 EACH CAP.SPRINK PO SCH (08:16)
[2018-11-08] MEDS: 0.9 % Sodium Chloride 1,000 ML IVC SCH ×2 (10:09→22:20)
[2018-11-08] MEDS: Insulin DETEMIR 100 UNIT/ML X5UNITS SQ SCH (22:21)
[2018-11-09] MEDS: Ondansetron ODT 4 MG TAB.RAPDIS SL SCH ×2 (05:59→07:57)
[2018-11-09] MEDS: *HR* Heparin 5,000 UNIT/ML VIAL SQ SCH (05:59)
[2018-11-09] MEDS: 0.9 % Sodium Chloride 1,000 ML IVC SCH (07:56)
[2018-11-09] MEDS: Lactobacillus 1 EACH CAP.SPRINK PO SCH (07:57)
[2018-11-09] MEDS: Fenofibrate 54 MG TABLET PO SCH (07:57)
[2018-11-09] MEDS: Insulin LISPRO 300 UNITS/3 ML VIAL SQ SCH ×2 (08:58→13:34)
[2018-11-09 09:14] LABS: Basophils # 0.1 K/mcL (0.0-0.2); Basophils % 1.5 %; Eosinophils # 0.1 K/mcL (0.0-0.6); Eosinophils % 2.1 %; Hematocrit 34.1 % (35.3-44.9); Immature Granulocytes % 0.2 % (0-4); Lymphocytes % 37.8 %; Mean Corpuscular HGB Conc 32.3 g/dL (31.6-35.5); Mean Corpuscular Hemoglobin 29.8 pg (28.0-33.3); Mean Corpuscular Volume 92.4 fL (83.0-100.0); Mean Platelet Volume 10.5 fL (9.4-12.4); Monocytes # 0.3 K/mcL (0.0-1.3); Monocytes % 6.4 %; Neutrophils # 2.8 K/mcL (1.6-8.9); Platelet Count 362 K/mcL (140-400); Red Blood Count 3.69 M/mcL (3.82-4.97); Red Cell Distribution Width 12.1 % (11.5-14.5); White Blood Count 5.4 K/mcL (4.3-11.1)
[2018-11-09 09:33] LABS: Calcium 9.3 mg/dL (8.6-10.3); Potassium 3.7 mEq/L (3.5-5.1)
[2018-11-09 11:18] VITALS: BP 117/71
[2018-11-09 14:01] LABS: BUN/Creatinine Ratio 17 (6-26); Blood Urea Nitrogen 20 mg/dL (6-20); Calcium 9.4 mg/dL (8.6-10.3); Carbon Dioxide 26 mEq/L (23-29); Chloride 106 mEq/L (98-107); Glucose 136 mg/dL (70-105); Osmolality,Calculated 291 (280-300); Potassium 3.8 mEq/L (3.5-5.1); Sodium 138 mEq/L (136-145); eGFR For African Americans > 60 (> 60); eGFR For Non-African Americans 50 (> 60)
== END 2018-11-09 16:41 | disposition home or self-care (01) ==
LOC: 3BNU 11:14 → EMEROOARM 11:14 → 3BNU 14:02
PROVIDERS: ADMIT Internal Medicine; ATTEND Internal Medicine

== ENCOUNTER 2020-10-07 17:21 | Inpatient (IN) ==
[2020-10-07] MEDS ORDERED: 0.9 % Sodium Chloride 1,000 ML IVC ONE (17:48)
[2020-10-07 19:11] LABS: Basophils % 0.5 %; Eosinophils % 0.3 %; Hematocrit 35.6 % (35.3-44.9); Hemoglobin 11.9 g/dL (11.5-15.4); Immature Granulocytes % 0.3 % (0-4); Lymphocytes # 1.2 K/mcL (0.6-4.6); Lymphocytes % 13.5 %; Mean Corpuscular HGB Conc 33.4 g/dL (31.6-35.5); Mean Corpuscular Hemoglobin 30.7 pg (28.0-33.3); Mean Corpuscular Volume 91.8 fL (83.0-100.0); Mean Platelet Volume 10.5 fL (9.4-12.4); Monocytes # 0.4 K/mcL (0.0-1.3); Monocytes % 4.3 %; Platelet Count 285 K/mcL (140-400); Red Blood Count 3.88 M/mcL (3.82-4.97); Segmented Neutrophils % 81.1 %; White Blood Count 8.6 K/mcL (4.3-11.1)
[2020-10-07 21:06] LABS: BUN/Creatinine Ratio 16 (6-26); Blood Urea Nitrogen 10 mg/dL (6-20); C-Reactive Protein 87 mg/L (Less than 10); Calcium 9.6 mg/dL (8.6-10.3); Carbon Dioxide 28 mEq/L (23-29); Chloride 96 mEq/L (98-107); Glucose 261 mg/dL (70-105); Osmolality,Calculated 292 (280-300); Potassium 3.5 mEq/L (3.5-5.1); Sodium 137 mEq/L (136-145); eGFR For African Americans > 60 (> 60); eGFR For Non-African Americans > 60 (> 60)
[2020-10-07] MEDS ORDERED: Piperacillin/Tazobactam 3.375 GM in 0.9 % Sodium Chloride Mini Bag 100 ML IVPB ONE (22:12)
[2020-10-07] MEDS ORDERED: DAPTOmycin 350 MG in 0.9 % Sodium Chloride 100 ML IVPB ONE (22:20)
[2020-10-07 23:51] LABS: Creatine Kinase 53 Units/L (30-223)
[2020-10-08] MEDS ORDERED: Naloxone 0.4 MG/ML INJ IVP PRN ×2 (00:27→17:12)
[2020-10-08] MEDS ORDERED: Ondansetron 4 MG/2 ML VIAL IVP PRN ×4 (00:27→17:12)
[2020-10-08] MEDS ORDERED: D5% in Water 1,000 ML IVC PRN ×2 (00:52→17:12)
[2020-10-08] MEDS ORDERED: *HR* Dextrose 50 % in Water (Vial) 50 ML VIAL IVP PRN ×2 (00:52→17:12)
[2020-10-08] MEDS ORDERED: Dextrose Gel 15 GM/37.5 ML TUBE PO PRN ×4 (00:52→17:12)
[2020-10-08] MEDS ORDERED: Vancomycin 1,250 MG/262.5 ML IV.SOLN IVPB ONE (01:00)
[2020-10-08] MEDS ORDERED: Insulin LISPRO 300 UNITS/3 ML VIAL SUBQ SCH (01:00)
[2020-10-08] MEDS: 0.9 % Sodium Chloride 1,000 ML IVC SCH ×2 (01:36→17:13)
[2020-10-08] MEDS: Acetaminophen 325 MG TABLET PO PRN ×3 (01:39→20:15)
[2020-10-08] MEDS: Insulin LISPRO 300 UNITS/3 ML VIAL SUBQ SCH ×7 (01:44→23:26)
[2020-10-08 05:51] LABS: Basophils % 0.6 %; Eosinophils # 0.1 K/mcL (0.0-0.6); Hematocrit 31.5 % (35.3-44.9); Hemoglobin 10.5 g/dL (11.5-15.4); Immature Granulocytes % 0.2 % (0-4); Lymphocytes # 1.5 K/mcL (0.6-4.6); Lymphocytes % 23.7 %; Mean Corpuscular HGB Conc 33.3 g/dL (31.6-35.5); Mean Corpuscular Volume 92.9 fL (83.0-100.0); Mean Platelet Volume 10.2 fL (9.4-12.4); Monocytes # 0.4 K/mcL (0.0-1.3); Neutrophils # 4.3 K/mcL (1.6-8.9); Platelet Count 251 K/mcL (140-400); Red Blood Count 3.39 M/mcL (3.82-4.97); Red Cell Distribution Width 11.9 % (11.5-14.5); Segmented Neutrophils % 68.5 %; White Blood Count 6.2 K/mcL (4.3-11.1)
[2020-10-08 05:55] LABS: INR 1.2; Prothrombin Time 13.7 Seconds (9.4-12.1)
[2020-10-08 06:09] LABS: BUN/Creatinine Ratio 14 (6-26); Blood Urea Nitrogen 8 mg/dL (6-20); Calcium 8.7 mg/dL (8.6-10.3); Carbon Dioxide 28 mEq/L (23-29); Chloride 105 mEq/L (98-107); Glucose 248 mg/dL (70-105); Magnesium 1.4 mg/dL (1.6-2.6); Osmolality,Calculated 293 (280-300); Potassium 3.3 mEq/L (3.5-5.1); Sodium 138 mEq/L (136-145); eGFR For African Americans > 60 (> 60); eGFR For Non-African Americans > 60 (> 60)
[2020-10-08] MEDS ORDERED: Piperacillin/Tazobactam 3.375 GM in 0.9 % Sodium Chloride Mini Bag 100 ML IVPB SCH (08:00)
[2020-10-08] MEDS ORDERED: Potassium Chloride 20 MEQ, Lidocaine 1% 2 ML in 0.9 % Sodium Chloride 250 ML IVPB ONE (08:41)
[2020-10-08] MEDS ORDERED: Gadolinium Contrast Agent (WT Based) IV PRN ×2 (08:42→17:12)
[2020-10-08] MEDS ORDERED: GADOBUTROL 30 MMOL/30 ML VIAL IVP ONE (11:17)
[2020-10-08] MEDS ORDERED: Promethazine 6.25 MG in Water for inj. (sterile) 20 ML IVPB PRN ×2 (13:22→17:12)
[2020-10-08] MEDS ORDERED: *HR* HYDROmorphone PF 0.5 MG/0.5 ML SYRINGE IVP PRN ×2 (13:22→17:12)
[2020-10-08] MEDS ORDERED: *HR* OxyCODONE Immed Rel 5 MG TABLET PO PRN ×2 (13:22→17:12)
[2020-10-08] MEDS ORDERED: Bupivacaine-MPF 0.25% 10 ML VIAL ONE (13:27)
[2020-10-08] MEDS ORDERED: Vancomycin 1,000 MG VIAL ONE (13:28)
[2020-10-08] MEDS ORDERED: *HR* Propofol 200 MG/20 ML VIAL IVP ONE (13:52)
[2020-10-08] MEDS ORDERED: *HR* FentaNYL (PF) 100 MCG/2 ML VIAL ONE (13:52)
[2020-10-08] MEDS ORDERED: *HR* Midazolam HCl 2 MG/2 ML VIAL ONE ×2 (13:52→13:53)
[2020-10-08] MEDS ORDERED: Ondansetron 4 MG/2 ML VIAL ONE (14:33)
[2020-10-08] MEDS ORDERED: EPHEDrine 50 MG/ML VIAL ONE (14:36)
[2020-10-08] MEDS ORDERED: 0.9 % Sodium Chloride 1,000 ML IVC SCH (17:12)
[2020-10-08] MEDS: *HR* Heparin 5,000 UNIT/ML VIAL SQ SCH (17:27)
[2020-10-08] MEDS: Piperacillin/Tazobactam 3.375 GM in 0.9 % Sodium Chloride Mini Bag 100 ML IVPB SCH (17:28)
[2020-10-08] MEDS ORDERED: *HR* Heparin 5,000 UNIT/ML VIAL SQ SCH (18:00)
[2020-10-09] MEDS ORDERED: Piperacillin/Tazobactam 3.375 GM in 0.9 % Sodium Chloride Mini Bag 100 ML IVPB SCH
[2020-10-09] MEDS: Piperacillin/Tazobactam 3.375 GM in 0.9 % Sodium Chloride Mini Bag 100 ML IVPB SCH ×3 (02:06→18:21)
[2020-10-09 03:26] LABS: Basophils % 0.1 %; Hematocrit 29.9 % (35.3-44.9); Hemoglobin 9.7 g/dL (11.5-15.4); Immature Granulocytes % 0.2 % (0-4); Lymphocytes # 1.2 K/mcL (0.6-4.6); Lymphocytes % 14.8 %; Mean Corpuscular HGB Conc 32.4 g/dL (31.6-35.5); Mean Corpuscular Hemoglobin 29.8 pg (28.0-33.3); Mean Platelet Volume 10.1 fL (9.4-12.4); Monocytes # 0.6 K/mcL (0.0-1.3); Monocytes % 7.1 %; Neutrophils # 6.5 K/mcL (1.6-8.9); Platelet Count 262 K/mcL (140-400); Red Blood Count 3.25 M/mcL (3.82-4.97); Red Cell Distribution Width 11.8 % (11.5-14.5); Segmented Neutrophils % 77.8 %; White Blood Count 8.4 K/mcL (4.3-11.1)
[2020-10-09 03:51] LABS: BUN/Creatinine Ratio 19 (6-26); Blood Urea Nitrogen 11 mg/dL (6-20); Calcium 8.8 mg/dL (8.6-10.3); Carbon Dioxide 27 mEq/L (23-29); Chloride 104 mEq/L (98-107); Glucose 196 mg/dL (70-105); Magnesium 1.7 mg/dL (1.6-2.6); Osmolality,Calculated 293 (280-300); Phosphorous 3.1 mg/dL (2.7-4.5); Potassium 3.6 mEq/L (3.5-5.1); Sodium 139 mEq/L (136-145); eGFR For African Americans > 60 (> 60); eGFR For Non-African Americans > 60 (> 60)
[2020-10-09] MEDS: Insulin LISPRO 300 UNITS/3 ML VIAL SUBQ SCH ×6 (04:33→20:58)
[2020-10-09] MEDS: *HR* Heparin 5,000 UNIT/ML VIAL SQ SCH ×2 (05:43→18:21)
[2020-10-09] MEDS: *HR* OxyCODONE Immed Rel 5 MG TABLET PO PRN (11:54)
[2020-10-09] MEDS: Gabapentin 400 MG CAPSULE PO SCH (16:19)
[2020-10-09] MEDS: Insulin DETEMIR 100 UNIT/ML X5UNITS SUBQ SCH (20:59)
[2020-10-10] MEDS: Insulin LISPRO 300 UNITS/3 ML VIAL SUBQ SCH ×6 (00:02→20:26)
[2020-10-10] MEDS: Piperacillin/Tazobactam 3.375 GM in 0.9 % Sodium Chloride Mini Bag 100 ML IVPB SCH ×3 (01:08→17:28)
[2020-10-10] MEDS: *HR* Heparin 5,000 UNIT/ML VIAL SQ SCH ×2 (05:26→17:28)
[2020-10-10] MEDS: *HR* OxyCODONE Immed Rel 5 MG TABLET PO PRN (07:42)
[2020-10-10] MEDS: Gabapentin 400 MG CAPSULE PO SCH (07:42)
[2020-10-10] MEDS: Acetaminophen 325 MG TABLET PO PRN (20:20)
[2020-10-10] MEDS: Insulin DETEMIR 100 UNIT/ML X5UNITS SUBQ SCH (22:01)
[2020-10-11] MEDS: Insulin LISPRO 300 UNITS/3 ML VIAL SUBQ SCH ×9 (00:53→23:36)
[2020-10-11] MEDS: Piperacillin/Tazobactam 3.375 GM in 0.9 % Sodium Chloride Mini Bag 100 ML IVPB SCH ×2 (02:27→11:47)
[2020-10-11 02:40] LABS: Estimated Average Glucose 263 mg/dl; Hemoglobin A1C 10.8 %
[2020-10-11] MEDS: *HR* Heparin 5,000 UNIT/ML VIAL SQ SCH ×2 (07:30→17:28)
[2020-10-11] MEDS: Acetaminophen 325 MG TABLET PO PRN ×2 (08:07→23:40)
[2020-10-11] MEDS: *HR* OxyCODONE Immed Rel 5 MG TABLET PO PRN ×2 (09:02→15:14)
[2020-10-11] MEDS: Gabapentin 400 MG CAPSULE PO SCH (09:03)
[2020-10-11] MEDS: DAPTOmycin 350 MG in 0.9 % Sodium Chloride 100 ML IVPB SCH (13:52)
[2020-10-11] MEDS: cefTRIAXone 2,000 MG in 0.9 % Sodium Chloride Mini Bag 100 ML IVPB SCH (13:53)
[2020-10-11] MEDS: Insulin DETEMIR 100 UNIT/ML X5UNITS SUBQ SCH (21:42)
[2020-10-12] MEDS ORDERED: Insulin LISPRO 300 UNITS/3 ML VIAL SUBQ ONE ×2 (00:58→01:15)
[2020-10-12 01:57] LABS: Hematocrit 29.2 % (35.3-44.9); Hemoglobin 9.7 g/dL (11.5-15.4); Mean Corpuscular HGB Conc 33.2 g/dL (31.6-35.5); Mean Corpuscular Hemoglobin 30.5 pg (28.0-33.3); Mean Corpuscular Volume 91.8 fL (83.0-100.0); Mean Platelet Volume 9.7 fL (9.4-12.4); Platelet Count 335 K/mcL (140-400); Red Blood Count 3.18 M/mcL (3.82-4.97); Red Cell Distribution Width 11.7 % (11.5-14.5)
[2020-10-12] MEDS: *HR* Heparin 5,000 UNIT/ML VIAL SQ SCH ×2 (05:49→17:46)
[2020-10-12] MEDS: Acetaminophen 325 MG TABLET PO PRN (07:21)
[2020-10-12] MEDS: Gabapentin 400 MG CAPSULE PO SCH (07:48)
[2020-10-12] MEDS: Insulin LISPRO 300 UNITS/3 ML VIAL SUBQ SCH ×3 (12:06→20:51)
[2020-10-12] MEDS: DAPTOmycin 350 MG in 0.9 % Sodium Chloride 100 ML IVPB SCH (12:08)
[2020-10-12] MEDS: cefTRIAXone 2,000 MG in 0.9 % Sodium Chloride Mini Bag 100 ML IVPB SCH (12:08)
[2020-10-12] MEDS: Insulin DETEMIR 100 UNIT/ML X5UNITS SUBQ SCH (20:51)
[2020-10-13] MEDS: *HR* Heparin 5,000 UNIT/ML VIAL SQ SCH ×2 (05:11→17:07)
[2020-10-13] MEDS: *HR* OxyCODONE Immed Rel 5 MG TABLET PO PRN (09:16)
[2020-10-13] MEDS: Gabapentin 400 MG CAPSULE PO SCH (09:16)
[2020-10-13] MEDS: Insulin LISPRO 300 UNITS/3 ML VIAL SUBQ SCH ×4 (10:50→20:38)
[2020-10-13] MEDS ORDERED: Lidocaine -MPF 1% 5 ML AMPUL INFILT ONE (11:10)
[2020-10-13] MEDS: cefTRIAXone 2,000 MG in 0.9 % Sodium Chloride Mini Bag 100 ML IVPB SCH (12:00)
[2020-10-13] MEDS: DAPTOmycin 350 MG in 0.9 % Sodium Chloride 100 ML IVPB SCH (14:32)
[2020-10-13] MEDS: Acetaminophen 325 MG TABLET PO PRN (18:52)
[2020-10-13] MEDS ORDERED: Insulin DETEMIR 100 UNIT/ML X5UNITS SUBQ SCH (21:00)
[2020-10-14] MEDS: *HR* Heparin 5,000 UNIT/ML VIAL SQ SCH (05:14)
[2020-10-14] MEDS: Acetaminophen 325 MG TABLET PO PRN (05:14)
[2020-10-14] MEDS: Gabapentin 400 MG CAPSULE PO SCH (08:30)
[2020-10-14] MEDS: Insulin LISPRO 300 UNITS/3 ML VIAL SUBQ SCH ×2 (08:31→12:30)
[2020-10-14 10:59] VITALS: BP 111/68; PULSE 73; TEMP 97.9; O2SAT 96
[2020-10-14] MEDS: DAPTOmycin 350 MG in 0.9 % Sodium Chloride 100 ML IVPB SCH (11:30)
[2020-10-14] MEDS: cefTRIAXone 2,000 MG in 0.9 % Sodium Chloride Mini Bag 100 ML IVPB SCH (12:25)
== END 2020-10-14 13:55 | disposition home health service (06) | DRG 314 ==
LOC: EMEROOARM 17:21 → 3BNU 17:21 → SUATTDRO 10-08 00:19 → 3BNU 10-08 01:13 → SUATTDRO 10-11 18:39
PROVIDERS: ADMIT Internal Medicine; ATTEND Registered Nurse

== ENCOUNTER 2020-12-21 13:02 | Inpatient (IN) ==
[2020-12-21] MEDS ORDERED: 0.9 % Sodium Chloride 1,000 ML IVC ONE (13:45)
[2020-12-21 14:13] LABS: Basophils % 0.3 %; Lymphocytes % 5.5 %
[2020-12-21 14:14] LABS: Basophils # 0.1 K/mcL (0.0-0.2); Hematocrit 50.9 % (35.3-44.9); Hemoglobin 15.6 g/dL (11.5-15.4); Immature Granulocytes % 2.2 % (0-4); Lymphocytes # 1.5 K/mcL (0.6-4.6); Mean Corpuscular HGB Conc 30.6 g/dL (31.6-35.5); Mean Corpuscular Hemoglobin 29.5 pg (28.0-33.3); Mean Corpuscular Volume 96.2 fL (83.0-100.0); Mean Platelet Volume 11.6 fL (9.4-12.4); Monocytes # 1.1 K/mcL (0.0-1.3); Monocytes % 4.3 %; Neutrophils # 23.1 K/mcL (1.6-8.9); Platelet Count 594 K/mcL (140-400); Red Blood Count 5.29 M/mcL (3.82-4.97); Red Cell Distribution Width 13.5 % (11.5-14.5); Segmented Neutrophils % 87.7 %; White Blood Count 26.3 K/mcL (4.3-11.1)
[2020-12-21 14:33] LABS: INR 1.2; Prothrombin Time 12.9 Seconds (9.4-12.1)
[2020-12-21 14:37] LABS: Activated Partial Thrombo Time 27.6 Seconds (26.0-36.0)
[2020-12-21 15:30] LABS: Platelet Estimate Increased (Normal)
[2020-12-21 15:36] LABS: Amorphous Sediment,Urine Few per hpf (None-Few); Bilirubin,Urine Negative (Negative); Blood,Urine Small (Negative); Clarity,Urine Clear (Clear); Color,Urine Light-Yellow (Yellow); Glucose,Urine (UA) >=1000 mg/dL (Normal); Ketones,Urine 150 mg/dL (Negative); Leukocyte Esterase,Urine Negative (Negative); Mucus,Urine Few per lpf (None-Few); Nitrite,Urine Negative (Negative); PH,Urine 5.5 pH Units (5.0-8.0); Protein,Urine 70 mg/dL (Neg-Trace); RBC,Urine 0-3 per hpf (0-3); Specific Gravity,Urine 1.026 (1.010-1.025); Squamous Epithelial Cell,Urine Few per hpf (None-Few); Urobilinogen,Urine Normal (Normal); WBC,Urine 0-3 per hpf (0-3)
[2020-12-21 15:43] LABS: Amphetamine Screen,Urine Negative ng/mL (Cutoff=1000); Barbiturate Screen,Urine Negative ng/mL (Cutoff=200); Benzodiazepines Screen,Urine Positive ng/mL (Cutoff=200); Cannabinoid Screen,Urine Negative ng/mL (Cutoff = 50); Cocaine Screen,Urine Negative ng/mL (Cutoff= 300); Opiate Screen,Urine Negative ng/mL (Cutoff=300); Phencyclidine Screen,Urine Negative ng/mL (Cutoff=25)
[2020-12-21 16:04] LABS: Alanine Aminotransferase 10 Units/L (7-52); Albumin 3.5 g/dL (3.5-5.7); Albumin/Globulin Ratio 0.7 (1.1-2.2); Alkaline Phosphatase 140 Units/L (34-104); Aspartate Amino Transferase 8 Units/L (13-39); BUN/Creatinine Ratio 40 (6-26); Bilirubin,Indirect 0.3 mg/dL (0.0-1.0); Bilirubin,Total 0.3 mg/dL (0.3-1.0); Blood Urea Nitrogen 66 mg/dL (6-20); Calcium 11.4 mg/dL (8.6-10.3); Carbon Dioxide 9 mEq/L (23-29); Chloride 90 mEq/L (98-107); Creatine Kinase 23 Units/L (30-223); Ethanol < 10 mg/dL (Less than 10); Globulin 5.2 g/dL (2.4-3.5); Glucose 747 mg/dL (70-105); Osmolality,Calculated 323 (280-300); Potassium 4.3 mEq/L (3.5-5.1); Sodium 129 mEq/L (136-145); Total Protein 8.7 g/dL (6.4-8.9); Troponin I 0.04 ng/mL (< 0.04); eGFR For African Americans 41 (> 60); eGFR For Non-African Americans 34 (> 60)
[2020-12-21] MEDS: 0.9 % Sodium Chloride 1,000 ML IVC SCH ×2 (16:11→17:16)
[2020-12-21] MEDS ORDERED: D5% in 0.45% NACL 1,000 ML IVC PRN (18:00)
[2020-12-21] MEDS ORDERED: *HR* Dextrose 50 % in Water (Syg) 50 ML SYRINGE IVP PRN (18:00)
[2020-12-21] MEDS ORDERED: Ondansetron 4 MG/2 ML VIAL IVP PRN (18:00)
[2020-12-21] MEDS ORDERED: Naloxone 0.4 MG/ML INJ IVP PRN (18:00)
[2020-12-21] MEDS ORDERED: *HR* LORazepam 2 MG/ML VIAL IVP PRN ×3 (18:16)
[2020-12-21 18:21] LABS: Calcium 11.1 mg/dL (8.6-10.3)
[2020-12-21 18:34] LABS: ABG Base Excess -17 mEq/L (-2 to 3); ABG HCO3 7 mEq/L (21-27); ABG Oxygen Saturation 95 % (95-98); ABG PCO2 16 mmHg (35-45); ABG PH 7.27 pH Units (7.32-7.45); ABG PO2 83 mmHg (85-104); ABG TCO2 8 mEq/L (20-26)
[2020-12-21 18:40] LABS: Magnesium 2.6 mg/dL (1.6-2.6); Phosphorous 4.9 mg/dL (2.7-4.5)
[2020-12-21] MEDS: 0.45 % Sodium Chloride w/KCl 20 MEQ/1,000 ML MLS IVC SCH ×2 (19:00→21:12)
[2020-12-21 19:06] LABS: Influenza A PCR Negative (Negative); Influenza B PCR Negative (Negative); Resp. Syncytial Virus PCR Negative (Negative)
[2020-12-21 19:10] LABS: SARS-CoV-2 by PCR (In House) Negative (Negative)
[2020-12-21] MEDS ORDERED: DAPTOmycin 350 MG in 0.9 % Sodium Chloride 100 ML IVPB SCH (20:00)
[2020-12-21] MEDS ORDERED: 0.9 % Sodium Chloride 1,000 ML IVC PRN (20:11)
[2020-12-21 22:04] LABS: BUN/Creatinine Ratio 48 (6-26); Blood Urea Nitrogen 53 mg/dL (6-20); Carbon Dioxide 10 mEq/L (23-29); Chloride 105 mEq/L (98-107); Glucose 359 mg/dL (70-105); Osmolality,Calculated 313 (280-300); Sodium 137 mEq/L (136-145); Troponin I < 0.03 ng/mL (< 0.04); eGFR For African Americans > 60 (> 60); eGFR For Non-African Americans 53 (> 60)
[2020-12-22] MEDS ORDERED: Piperacillin/Tazobactam 3.375 GM in 0.9 % Sodium Chloride Mini Bag 100 ML IVPB SCH
[2020-12-22] MEDS ORDERED: *HR* Metoprolol 5 MG/5 ML VIAL IVP ONE ×3 (00:07→14:17)
[2020-12-22] MEDS: Cefepime HCl 2,000 MG in Water for inj. (sterile) 20 ML IVP SCH ×4 (00:10→23:31)
[2020-12-22] MEDS: *HR* Heparin 5,000 UNIT/ML VIAL SQ SCH ×4 (00:11→23:31)
[2020-12-22] MEDS: D5% in 0.45% NACL w KCl 20 MEQ/1,000 ML MLS IVC PRN ×6 (00:14→21:41)
[2020-12-22] MEDS ORDERED: 0.45 % Sodium Chloride w/KCl 20 MEQ/1,000 ML MLS IVC PRN (00:19)
[2020-12-22 03:04] LABS: BUN/Creatinine Ratio 50 (6-26); Blood Urea Nitrogen 40 mg/dL (6-20); Calcium 9.6 mg/dL (8.6-10.3); Carbon Dioxide 16 mEq/L (23-29); Chloride 111 mEq/L (98-107); Glucose 145 mg/dL (70-105); Magnesium 1.9 mg/dL (1.6-2.6); Osmolality,Calculated 298 (280-300); Phosphorous 1.1 mg/dL (2.7-4.5); Potassium 3.4 mEq/L (3.5-5.1); Sodium 138 mEq/L (136-145); eGFR For African Americans > 60 (> 60); eGFR For Non-African Americans > 60 (> 60)
[2020-12-22 05:54] LABS: Hemoglobin 12.9 g/dL (11.5-15.4); Mean Corpuscular HGB Conc 33.1 g/dL (31.6-35.5); Mean Corpuscular Hemoglobin 29.4 pg (28.0-33.3); Mean Corpuscular Volume 88.8 fL (83.0-100.0); Platelet Count 526 K/mcL (140-400); Red Blood Count 4.39 M/mcL (3.82-4.97); Red Cell Distribution Width 12.9 % (11.5-14.5); White Blood Count 17.2 K/mcL (4.3-11.1)
[2020-12-22 05:59] LABS: VBG HCO3 18 mEq/L (21-27); VBG PCO2 36 mmHg (41-51); VBG PH 7.31 pH Units (7.32-7.42); VBG PO2 47 mmHg (25-50)
[2020-12-22 06:16] LABS: BUN/Creatinine Ratio 44 (6-26); Blood Urea Nitrogen 38 mg/dL (6-20); Calcium 10.1 mg/dL (8.6-10.3); Carbon Dioxide 17 mEq/L (23-29); Chloride 110 mEq/L (98-107); Glucose 131 mg/dL (70-105); Osmolality,Calculated 297 (280-300); Potassium 3.4 mEq/L (3.5-5.1); Sodium 138 mEq/L (136-145); eGFR For African Americans > 60 (> 60); eGFR For Non-African Americans > 60 (> 60)
[2020-12-22 06:43] LABS: Neutrophils # 15.1 K/mcL (1.6-8.9); Platelet Estimate Increased (Normal)
[2020-12-22 07:57] LABS: Enterococcus by PCR Not Detected (Not Detect); Staphylococcus aureus by PCR Not Detected (Not Detect); Staphylococcus by PCR Not Detected (Not Detect); Streptococcus agalactiae(B)PCR DETECTED (Not Detect); Streptococcus pneumoniae PCR Not Detected (Not Detect)
[2020-12-22 07:58] LABS: Acinetobacter baumannii by PCR Not Detected (Not Detect); Candida albicans by PCR Not Detected (Not Detect); Candida glabrata by PCR Not Detected (Not Detect); Candida krusei by PCR Not Detected (Not Detect); Candida parapsilosis by PCR Not Detected (Not Detect); Candida tropicalis by PCR Not Detected (Not Detect); Enterobacter cloacae Cmplx PCR Not Detected (Not Detect); Enterobacteriaceae by PCR Not Detected (Not Detect); Escherichia coli by PCR Not Detected (Not Detect); Klebsiella oxytoca by PCR Not Detected (Not Detect); Klebsiella pneumoniae by PCR Not Detected (Not Detect); Proteus by PCR Not Detected (Not Detect); Pseudomonas aeruginosa by PCR Not Detected (Not Detect); Serratia marcescens by PCR Not Detected (Not Detect); Streptococcus pyogenes (A) PCR Not Detected (Not Detect)
[2020-12-22] MEDS ORDERED: Calcium Gluconate 1gm/50mL 1 GM/50 ML BAG IVPB PRN (08:34)
[2020-12-22] MEDS: Potassium Phosphate 44 MEQ in 0.9 % Sodium Chloride 250 ML IVPB PRN ×2 (09:19→22:28)
[2020-12-22 10:09] LABS: VBG HCO3 21 mEq/L (21-27); VBG PCO2 42 mmHg (41-51); VBG PH 7.31 pH Units (7.32-7.42); VBG PO2 111 mmHg (25-50)
[2020-12-22 10:27] LABS: BUN/Creatinine Ratio 38 (6-26); Blood Urea Nitrogen 29 mg/dL (6-20); Calcium 9.6 mg/dL (8.6-10.3); Carbon Dioxide 20 mEq/L (23-29); Chloride 109 mEq/L (98-107); Glucose 110 mg/dL (70-105); Osmolality,Calculated 290 (280-300); Potassium 3.2 mEq/L (3.5-5.1); Sodium 137 mEq/L (136-145); eGFR For African Americans > 60 (> 60); eGFR For Non-African Americans > 60 (> 60)
[2020-12-22] MEDS ORDERED: Potassium Chloride 40 MEQ, Lidocaine 1% 2 ML in 0.9 % Sodium Chloride 500 ML IVPB ONE (11:37)
[2020-12-22 12:12] LABS: Estimated Average Glucose 301 mg/dl; Hemoglobin A1C 12.1 %
[2020-12-22 14:36] LABS: BUN/Creatinine Ratio 33 (6-26); Blood Urea Nitrogen 19 mg/dL (6-20); Carbon Dioxide 19 mEq/L (23-29); Chloride 108 mEq/L (98-107); Glucose 152 mg/dL (70-105); Osmolality,Calculated 283 (280-300); Potassium 3.7 mEq/L (3.5-5.1); Sodium 134 mEq/L (136-145); eGFR For African Americans > 60 (> 60); eGFR For Non-African Americans > 60 (> 60)
[2020-12-22 21:37] LABS: Phosphorous < 1.0 mg/dL (2.7-4.5); Potassium 3.3 mEq/L (3.5-5.1)
[2020-12-23] MEDS: D5% in 0.45% NACL w KCl 20 MEQ/1,000 ML MLS IVC PRN ×3 (01:52→19:47)
[2020-12-23] MEDS ORDERED: *HR* Metoprolol 5 MG/5 ML VIAL IVP ONE (03:18)
[2020-12-23 03:45] LABS: VBG HCO3 21 mEq/L (21-27); VBG Ionized Calcium 1.29 mmol/L (1.15-1.35); VBG PCO2 28 mmHg (41-51); VBG PH 7.48 pH Units (7.32-7.42); VBG PO2 188 mmHg (25-50)
[2020-12-23 04:04] LABS: BUN/Creatinine Ratio 17 (6-26); Blood Urea Nitrogen 8 mg/dL (6-20); Calcium 9.3 mg/dL (8.6-10.3); Carbon Dioxide 22 mEq/L (23-29); Chloride 103 mEq/L (98-107); Glucose 187 mg/dL (70-105); Osmolality,Calculated 277 (280-300); Potassium 3.6 mEq/L (3.5-5.1); Sodium 132 mEq/L (136-145); eGFR For African Americans > 60 (> 60); eGFR For Non-African Americans > 60 (> 60)
[2020-12-23 05:50] LABS: Basophils % 0.1 %; Hemoglobin 9.6 g/dL (11.5-15.4); Immature Granulocytes % 0.9 % (0-4); Lymphocytes # 1.2 K/mcL (0.6-4.6); Lymphocytes % 6.9 %; Mean Corpuscular HGB Conc 34.3 g/dL (31.6-35.5); Mean Corpuscular Hemoglobin 29.8 pg (28.0-33.3); Mean Platelet Volume 10.5 fL (9.4-12.4); Monocytes # 0.7 K/mcL (0.0-1.3); Monocytes % 3.9 %; Platelet Count 426 K/mcL (140-400); Red Blood Count 3.22 M/mcL (3.82-4.97); Segmented Neutrophils % 88.2 %
[2020-12-23 06:14] LABS: Platelet Estimate Normal (Normal); Reactive Lymphocytes Present (Not Present); Toxic Granulation Present (Not Present)
[2020-12-23] MEDS: Cefepime HCl 2,000 MG in Water for inj. (sterile) 20 ML IVP SCH (07:12)
[2020-12-23] MEDS: *HR* Heparin 5,000 UNIT/ML VIAL SQ SCH ×2 (07:12→16:52)
[2020-12-23] MEDS ORDERED: Acetaminophen 325 MG TABLET PO PRN (08:30)
[2020-12-23] MEDS ORDERED: Acetaminophen IV 1,000 MG/100 ML BAG IVPB ONE (08:54)
[2020-12-23] MEDS ORDERED: *HR* LORazepam 2 MG/ML VIAL IVP ONE (09:13)
[2020-12-23 11:39] LABS: BUN/Creatinine Ratio 15 (6-26); Blood Urea Nitrogen 7 mg/dL (6-20); Calcium 9.6 mg/dL (8.6-10.3); Carbon Dioxide 24 mEq/L (23-29); Chloride 99 mEq/L (98-107); Glucose 160 mg/dL (70-105); Magnesium 2.1 mg/dL (1.6-2.6); Osmolality,Calculated 275 (280-300); Phosphorous 2.2 mg/dL (2.7-4.5); Potassium 3.6 mEq/L (3.5-5.1); Sodium 132 mEq/L (136-145); eGFR For African Americans > 60 (> 60); eGFR For Non-African Americans > 60 (> 60)
[2020-12-23] MEDS: Potassium Phosphate 44 MEQ in 0.9 % Sodium Chloride 250 ML IVPB PRN (14:56)
[2020-12-23 15:01] LABS: Influenza A PCR Negative (Negative); Influenza B PCR Negative (Negative); Resp. Syncytial Virus PCR Negative (Negative)
[2020-12-23 15:04] LABS: SARS-CoV-2 by PCR (In House) Negative (Negative)
[2020-12-23] MEDS: Piperacillin/Tazobactam 3.375 GM in 0.9 % Sodium Chloride Mini Bag 100 ML IVPB SCH (16:51)
[2020-12-23] MEDS ORDERED: D5% in Water 1,000 ML IVC PRN (20:46)
[2020-12-23] MEDS ORDERED: Dextrose Gel 15 GM/37.5 ML TUBE PO PRN ×2 (20:46)
[2020-12-23] MEDS ORDERED: Insulin LISPRO 300 UNITS/3 ML VIAL SUBQ SCH (21:00)
[2020-12-23] MEDS: Insulin LISPRO 300 UNITS/3 ML VIAL SUBQ SCH (21:29)
[2020-12-23] MEDS: Acetaminophen 325 MG TABLET PO PRN (21:49)
[2020-12-23] MEDS: Insulin DETEMIR 100 UNIT/ML X5UNITS SUBQ SCH (21:50)
[2020-12-24] MEDS ORDERED: Insulin LISPRO 300 UNITS/3 ML VIAL SUBQ ONE (00:09)
[2020-12-24] MEDS: *HR* Heparin 5,000 UNIT/ML VIAL SQ SCH ×3 (00:13→17:04)
[2020-12-24] MEDS: Piperacillin/Tazobactam 3.375 GM in 0.9 % Sodium Chloride Mini Bag 100 ML IVPB SCH ×3 (00:14→17:04)
[2020-12-24 03:07] LABS: Basophils % 0.2 %; Eosinophils % 0.1 %; Hematocrit 30.4 % (35.3-44.9); Hemoglobin 10.2 g/dL (11.5-15.4); Immature Granulocytes % 1.6 % (0-4); Lymphocytes # 1.8 K/mcL (0.6-4.6); Lymphocytes % 9.9 %; Mean Corpuscular HGB Conc 33.6 g/dL (31.6-35.5); Mean Corpuscular Hemoglobin 29.5 pg (28.0-33.3); Mean Corpuscular Volume 87.9 fL (83.0-100.0); Mean Platelet Volume 10.2 fL (9.4-12.4); Monocytes # 0.7 K/mcL (0.0-1.3); Monocytes % 3.8 %; Neutrophils # 15.3 K/mcL (1.6-8.9); Platelet Count 408 K/mcL (140-400); Red Blood Count 3.46 M/mcL (3.82-4.97); Red Cell Distribution Width 13.4 % (11.5-14.5); Segmented Neutrophils % 84.4 %; White Blood Count 18.1 K/mcL (4.3-11.1)
[2020-12-24 03:09] LABS: VBG Ionized Calcium 1.19 mmol/L (1.15-1.35)
[2020-12-24 03:26] LABS: BUN/Creatinine Ratio 14 (6-26); Blood Urea Nitrogen 7 mg/dL (6-20); Calcium 9.5 mg/dL (8.6-10.3); Carbon Dioxide 26 mEq/L (23-29); Chloride 101 mEq/L (98-107); Glucose 167 mg/dL (70-105); Osmolality,Calculated 284 (280-300); Potassium 3.7 mEq/L (3.5-5.1); Sodium 136 mEq/L (136-145); eGFR For African Americans > 60 (> 60); eGFR For Non-African Americans > 60 (> 60)
[2020-12-24] MEDS: 0.9 % Sodium Chloride 1,000 ML IVC SCH (07:32)
[2020-12-24] MEDS: 0.45 % Sodium Chloride w/KCl 20 MEQ/1,000 ML MLS IVC SCH (07:32)
[2020-12-24] MEDS: Insulin LISPRO 300 UNITS/3 ML VIAL SUBQ SCH ×3 (07:49→17:06)
[2020-12-24] MEDS: Acetaminophen 325 MG TABLET PO PRN (13:06)
[2020-12-24] MEDS ORDERED: Azithromycin 500 MG in 0.9 % Sodium Chloride 250 ML IVPB SCH (18:00)
[2020-12-24] MEDS: Insulin DETEMIR 100 UNIT/ML X5UNITS SUBQ SCH (20:25)
[2020-12-25] MEDS: *HR* Heparin 5,000 UNIT/ML VIAL SQ SCH ×3 (00:48→16:56)
[2020-12-25] MEDS: Acetaminophen 325 MG TABLET PO PRN ×3 (00:49→20:24)
[2020-12-25] MEDS: Piperacillin/Tazobactam 3.375 GM in 0.9 % Sodium Chloride Mini Bag 100 ML IVPB SCH ×3 (00:50→16:56)
[2020-12-25 02:04] LABS: Basophils % 0.3 %; Eosinophils # 0.1 K/mcL (0.0-0.6); Eosinophils % 0.4 %; Hematocrit 30.8 % (35.3-44.9); Hemoglobin 10.1 g/dL (11.5-15.4); Immature Granulocytes % 1.6 % (0-4); Lymphocytes # 1.8 K/mcL (0.6-4.6); Lymphocytes % 12.3 %; Mean Corpuscular HGB Conc 32.8 g/dL (31.6-35.5); Mean Corpuscular Hemoglobin 29.4 pg (28.0-33.3); Mean Corpuscular Volume 89.5 fL (83.0-100.0); Mean Platelet Volume 10.2 fL (9.4-12.4); Monocytes # 0.9 K/mcL (0.0-1.3); Monocytes % 5.8 %; Neutrophils # 11.6 K/mcL (1.6-8.9); Platelet Count 477 K/mcL (140-400); Red Blood Count 3.44 M/mcL (3.82-4.97); Red Cell Distribution Width 13.3 % (11.5-14.5); Segmented Neutrophils % 79.6 %; White Blood Count 14.6 K/mcL (4.3-11.1)
[2020-12-25 02:24] LABS: BUN/Creatinine Ratio 19 (6-26); Blood Urea Nitrogen 10 mg/dL (6-20); Calcium 9.6 mg/dL (8.6-10.3); Carbon Dioxide 29 mEq/L (23-29); Chloride 93 mEq/L (98-107); Glucose 207 mg/dL (70-105); Osmolality,Calculated 277 (280-300); Potassium 3.8 mEq/L (3.5-5.1); Sodium 131 mEq/L (136-145); eGFR For African Americans > 60 (> 60); eGFR For Non-African Americans > 60 (> 60)
[2020-12-25] MEDS: Insulin LISPRO 300 UNITS/3 ML VIAL SUBQ SCH ×3 (07:22→16:59)
[2020-12-25] MEDS: Gabapentin 400 MG CAPSULE PO SCH (08:48)
[2020-12-25] MEDS: Insulin DETEMIR 100 UNIT/ML X5UNITS SUBQ SCH (20:24)
[2020-12-25] MEDS ORDERED: *HR* Metoprolol 5 MG/5 ML VIAL IVP ONE (20:45)
[2020-12-25] MEDS: Azithromycin 500 MG in 0.9 % Sodium Chloride 250 ML IVPB SCH (22:21)
[2020-12-26] MEDS: Piperacillin/Tazobactam 3.375 GM in 0.9 % Sodium Chloride Mini Bag 100 ML IVPB SCH ×4 (00:49→23:43)
[2020-12-26] MEDS: *HR* Heparin 5,000 UNIT/ML VIAL SQ SCH ×4 (00:49→23:43)
[2020-12-26] MEDS ORDERED: Ketorolac 30 MG/ML VIAL IVP ONE (00:57)
[2020-12-26 07:37] LABS: Basophils % 0.3 %; Eosinophils # 0.1 K/mcL (0.0-0.6); Eosinophils % 0.5 %; Hematocrit 30.2 % (35.3-44.9); Hemoglobin 9.8 g/dL (11.5-15.4); Immature Granulocytes % 1.8 % (0-4); Mean Corpuscular HGB Conc 32.5 g/dL (31.6-35.5); Mean Corpuscular Hemoglobin 29.4 pg (28.0-33.3); Mean Corpuscular Volume 90.7 fL (83.0-100.0); Mean Platelet Volume 10.3 fL (9.4-12.4); Monocytes # 0.9 K/mcL (0.0-1.3); Monocytes % 7.5 %; Neutrophils # 9.1 K/mcL (1.6-8.9); Platelet Count 506 K/mcL (140-400); Red Blood Count 3.33 M/mcL (3.82-4.97); Red Cell Distribution Width 13.2 % (11.5-14.5); Segmented Neutrophils % 73.9 %; White Blood Count 12.3 K/mcL (4.3-11.1)
[2020-12-26 07:51] LABS: BUN/Creatinine Ratio 21 (6-26); Blood Urea Nitrogen 11 mg/dL (6-20); Calcium 9.9 mg/dL (8.6-10.3); Carbon Dioxide 33 mEq/L (23-29); Chloride 93 mEq/L (98-107); Glucose 239 mg/dL (70-105); Osmolality,Calculated 285 (280-300); Potassium 3.5 mEq/L (3.5-5.1); Sodium 134 mEq/L (136-145); eGFR For African Americans > 60 (> 60); eGFR For Non-African Americans > 60 (> 60)
[2020-12-26] MEDS: Insulin LISPRO 300 UNITS/3 ML VIAL SUBQ SCH ×4 (08:24→20:59)
[2020-12-26] MEDS: Gabapentin 400 MG CAPSULE PO SCH (08:31)
[2020-12-26] MEDS ORDERED: GI Cocktail 40 ML EACH PO ONE (12:30)
[2020-12-26] MEDS: Pantoprazole 40 MG VIAL IVP SCH (13:59)
[2020-12-26] MEDS: Acetaminophen 325 MG TABLET PO PRN ×2 (15:23→21:00)
[2020-12-26] MEDS ORDERED: diazePAM 5 MG TABLET PO SCH (17:37)
[2020-12-26] MEDS ORDERED: Levalbuterol Neb 1.25 MG/3 ML IH PRN (19:06)
[2020-12-26] MEDS: Insulin DETEMIR 100 UNIT/ML X5UNITS SUBQ SCH (20:59)
[2020-12-26] MEDS: Azithromycin 500 MG in 0.9 % Sodium Chloride 250 ML IVPB SCH (20:59)
[2020-12-26] MEDS ORDERED: diazePAM 5 MG TABLET PO ONE (21:00)
[2020-12-27 01:08] LABS: Basophils % 0.3 %; Eosinophils # 0.1 K/mcL (0.0-0.6); Eosinophils % 0.5 %; Hematocrit 27.8 % (35.3-44.9); Hemoglobin 8.9 g/dL (11.5-15.4); Immature Granulocytes % 1.8 % (0-4); Lymphocytes # 2.7 K/mcL (0.6-4.6); Lymphocytes % 20.2 %; Mean Corpuscular Volume 90.6 fL (83.0-100.0); Mean Platelet Volume 9.9 fL (9.4-12.4); Monocytes # 1.1 K/mcL (0.0-1.3); Monocytes % 8.5 %; Platelet Count 494 K/mcL (140-400); Red Blood Count 3.07 M/mcL (3.82-4.97); Segmented Neutrophils % 68.7 %; White Blood Count 13.1 K/mcL (4.3-11.1)
[2020-12-27 01:29] LABS: BUN/Creatinine Ratio 15 (6-26); Blood Urea Nitrogen 7 mg/dL (6-20); Calcium 9.5 mg/dL (8.6-10.3); Carbon Dioxide 30 mEq/L (23-29); Chloride 95 mEq/L (98-107); Glucose 219 mg/dL (70-105); Osmolality,Calculated 283 (280-300); Potassium 3.3 mEq/L (3.5-5.1); Sodium 134 mEq/L (136-145); eGFR For African Americans > 60 (> 60); eGFR For Non-African Americans > 60 (> 60)
[2020-12-27] MEDS: *HR* Heparin 5,000 UNIT/ML VIAL SQ SCH ×2 (07:50→17:30)
[2020-12-27] MEDS: Pantoprazole 40 MG VIAL IVP SCH (07:50)
[2020-12-27] MEDS: Piperacillin/Tazobactam 3.375 GM in 0.9 % Sodium Chloride Mini Bag 100 ML IVPB SCH ×2 (07:50→17:29)
[2020-12-27] MEDS: Gabapentin 400 MG CAPSULE PO SCH (07:50)
[2020-12-27] MEDS: Insulin LISPRO 300 UNITS/3 ML VIAL SUBQ SCH ×4 (07:51→20:14)
[2020-12-27] MEDS ORDERED: GI Cocktail 40 ML EACH PO ONE (08:14)
[2020-12-27] MEDS ORDERED: Acetaminophen IV 1,000 MG/100 ML BAG IVPB ONE (16:33)
[2020-12-27] MEDS ORDERED: Isovue-370 500 ML BOTTLE IVP ONE (17:58)
[2020-12-27] MEDS: Insulin DETEMIR 100 UNIT/ML X5UNITS SUBQ SCH (20:45)
[2020-12-27] MEDS: Azithromycin 500 MG in 0.9 % Sodium Chloride 250 ML IVPB SCH (23:26)
[2020-12-28] MEDS: Piperacillin/Tazobactam 3.375 GM in 0.9 % Sodium Chloride Mini Bag 100 ML IVPB SCH ×3 (00:41→17:00)
[2020-12-28] MEDS: *HR* Heparin 5,000 UNIT/ML VIAL SQ SCH ×3 (00:42→16:58)
[2020-12-28 01:43] LABS: Basophils % 0.3 %; Eosinophils % 0.2 %; Hematocrit 28.8 % (35.3-44.9); Hemoglobin 9.1 g/dL (11.5-15.4); Immature Granulocytes % 1.2 % (0-4); Lymphocytes # 2.2 K/mcL (0.6-4.6); Lymphocytes % 15.8 %; Mean Corpuscular HGB Conc 31.6 g/dL (31.6-35.5); Mean Corpuscular Hemoglobin 29.2 pg (28.0-33.3); Mean Corpuscular Volume 92.3 fL (83.0-100.0); Mean Platelet Volume 10.1 fL (9.4-12.4); Monocytes # 1.1 K/mcL (0.0-1.3); Monocytes % 7.7 %; Neutrophils # 10.2 K/mcL (1.6-8.9); Platelet Count 581 K/mcL (140-400); Red Blood Count 3.12 M/mcL (3.82-4.97); Segmented Neutrophils % 74.8 %; White Blood Count 13.6 K/mcL (4.3-11.1)
[2020-12-28 01:56] LABS: BUN/Creatinine Ratio 13 (6-26); Blood Urea Nitrogen 6 mg/dL (6-20); Calcium 9.7 mg/dL (8.6-10.3); Carbon Dioxide 29 mEq/L (23-29); Chloride 95 mEq/L (98-107); Glucose 283 mg/dL (70-105); Osmolality,Calculated 284 (280-300); Sodium 133 mEq/L (136-145); eGFR For African Americans > 60 (> 60); eGFR For Non-African Americans > 60 (> 60)
[2020-12-28] MEDS: Acetaminophen 325 MG TABLET PO PRN (04:53)
[2020-12-28] MEDS: Azithromycin 500 MG in 0.9 % Sodium Chloride 250 ML IVPB SCH ×2 (07:29→23:18)
[2020-12-28] MEDS ORDERED: Gadolinium Contrast Agent (WT Based) IV PRN ×2 (07:32→07:57)
[2020-12-28] MEDS ORDERED: GADOBUTROL 30 MMOL/30 ML VIAL IVP ONE (08:45)
[2020-12-28] MEDS: Gabapentin 400 MG CAPSULE PO SCH (09:37)
[2020-12-28] MEDS: Insulin LISPRO 300 UNITS/3 ML VIAL SUBQ SCH ×4 (09:37→22:41)
[2020-12-28] MEDS: Pantoprazole 40 MG VIAL IVP SCH (09:37)
[2020-12-28] MEDS ORDERED: *HR* Dextrose 50 % in Water (Syg) 50 ML SYRINGE IVP PRN (10:58)
[2020-12-28] MEDS ORDERED: *HR* Midazolam HCl 5 MG/5 ML VIAL IVP ONE ×2 (13:10→13:31)
[2020-12-28] MEDS ORDERED: *HR* FentaNYL (PF) 100 MCG/2 ML VIAL ONE (13:10)
[2020-12-28 13:29] LABS: ABG PCO2 < 13 mmHg (35-45); ABG PH 7.21 pH Units (7.32-7.45); ABG PO2 125 mmHg (85-104)
[2020-12-28] MEDS ORDERED: *HR* FentaNYL (PF) 100 MCG/2 ML VIAL IVP ONE (13:31)
[2020-12-28 16:26] LABS: C-Reactive Protein 113 mg/L (Less than 10)
[2020-12-28] MEDS: DAPTOmycin 500 MG in 0.9 % Sodium Chloride 100 ML IVPB SCH (16:57)
[2020-12-28] MEDS ORDERED: tiZANidine 4 MG TABLET PO PRN ×2 (17:36→22:21)
[2020-12-28] MEDS: 0.9 % Sodium Chloride 1,000 ML IVC SCH (18:18)
[2020-12-28] MEDS: Insulin DETEMIR 100 UNIT/ML X5UNITS SUBQ SCH (20:09)
[2020-12-29 02:23] LABS: Basophils % 0.3 %; Eosinophils % 0.3 %; Hematocrit 25.7 % (35.3-44.9); Hemoglobin 8.3 g/dL (11.5-15.4); Immature Granulocytes % 0.9 % (0-4); Lymphocytes # 2.8 K/mcL (0.6-4.6); Lymphocytes % 18.5 %; Mean Corpuscular HGB Conc 32.3 g/dL (31.6-35.5); Mean Corpuscular Hemoglobin 29.9 pg (28.0-33.3); Mean Corpuscular Volume 92.4 fL (83.0-100.0); Mean Platelet Volume 9.7 fL (9.4-12.4); Monocytes # 0.9 K/mcL (0.0-1.3); Monocytes % 5.7 %; Neutrophils # 11.2 K/mcL (1.6-8.9); Platelet Count 574 K/mcL (140-400); Red Blood Count 2.78 M/mcL (3.82-4.97); Red Cell Distribution Width 12.9 % (11.5-14.5); Segmented Neutrophils % 74.3 %; White Blood Count 15.1 K/mcL (4.3-11.1)
[2020-12-29 02:41] LABS: BUN/Creatinine Ratio 18 (6-26); Blood Urea Nitrogen 7 mg/dL (6-20); Calcium 9.1 mg/dL (8.6-10.3); Carbon Dioxide 31 mEq/L (23-29); Chloride 96 mEq/L (98-107); Glucose 209 mg/dL (70-105); Osmolality,Calculated 280 (280-300); Potassium 3.7 mEq/L (3.5-5.1); Sodium 133 mEq/L (136-145); eGFR For African Americans > 60 (> 60); eGFR For Non-African Americans > 60 (> 60)
[2020-12-29] MEDS: 0.9 % Sodium Chloride 1,000 ML IVC SCH (02:55)
[2020-12-29] MEDS: *HR* Heparin 5,000 UNIT/ML VIAL SQ SCH ×4 (03:01→23:14)
[2020-12-29] MEDS: Piperacillin/Tazobactam 3.375 GM in 0.9 % Sodium Chloride Mini Bag 100 ML IVPB SCH ×3 (03:27→21:38)
[2020-12-29] MEDS: Insulin LISPRO 300 UNITS/3 ML VIAL SUBQ SCH ×4 (09:21→21:22)
[2020-12-29] MEDS: Gabapentin 400 MG CAPSULE PO SCH (09:24)
[2020-12-29] MEDS: Morphine Sulfate 2 MG/ML SYRINGE IVP PRN ×3 (09:36→21:36)
[2020-12-29] MEDS ORDERED: Perflutren Lipid Microsphere 1.3 ML in 0.9 % Sodium Chloride 8.7 ML IVP PRN (10:38)
[2020-12-29] MEDS ORDERED: Sucralfate 1 GM TABLET PO SCH (11:30)
[2020-12-29] MEDS ORDERED: Chloraseptic Spray 177 ML BOTTLE PO PRN (11:54)
[2020-12-29] MEDS ORDERED: Polymyxin B Sulfate 500,000 UNIT, Sodium Chloride IRRigation 1,000 ML IR ONE (14:15)
[2020-12-29] MEDS ORDERED: *HR* FentaNYL (PF) 100 MCG/2 ML VIAL ONE ×2 (14:50→17:53)
[2020-12-29] MEDS ORDERED: *HR* Midazolam HCl 2 MG/2 ML VIAL ONE (14:50)
[2020-12-29] MEDS ORDERED: *HR* Propofol 200 MG/20 ML VIAL IVP ONE (14:50)
[2020-12-29] MEDS ORDERED: Lidocaine HCL 4 ML Topical Solution (Laryng-O-Jet Kit Sterile Pak) TP ONE (14:51)
[2020-12-29] MEDS ORDERED: *HR* Rocuronium Bromide 50 MG/5 ML VIAL ONE ×2 (14:51→18:20)
[2020-12-29] MEDS ORDERED: *HR* Succinylcholine 200 MG/10 ML VIAL IVP ONE (14:51)
[2020-12-29] MEDS ORDERED: Lidocaine -MPF 2% 5 ML VIAL ONE (14:51)
[2020-12-29] MEDS ORDERED: Ondansetron 4 MG/2 ML VIAL ONE (14:51)
[2020-12-29] MEDS ORDERED: *HR* HYDROMORPHONE 2 MG/ML VIAL ONE ×2 (15:10→18:38)
[2020-12-29] MEDS: DAPTOmycin 500 MG in 0.9 % Sodium Chloride 100 ML IVPB SCH (15:32)
[2020-12-29] MEDS: Ringers Solution, Lactated 1,000 ML IVC SCH ×2 (16:40→21:41)
[2020-12-29] MEDS ORDERED: Pantoprazole 40 MG VIAL IVP SCH ×2 (18:00→21:00)
[2020-12-29] MEDS ORDERED: *HR* Phenylephrine 10 MG/ML VIAL ONE (18:13)
[2020-12-29] MEDS ORDERED: Sugammadex Sodium 200 MG/2 ML VIAL IV ONE (18:18)
[2020-12-29] MEDS ORDERED: *HR* HYDROmorphone PF 0.5 MG/0.5 ML SYRINGE IVP PRN (19:15)
[2020-12-29] MEDS: *HR* FentaNYL (PF) 100 MCG/2 ML VIAL IVP PRN ×2 (19:41→19:53)
[2020-12-29] MEDS: Insulin DETEMIR 100 UNIT/ML X5UNITS SUBQ SCH (21:22)
[2020-12-29] MEDS: Azithromycin 500 MG in 0.9 % Sodium Chloride 250 ML IVPB SCH (23:15)
[2020-12-30 01:48] LABS: Basophils % 0.2 %; Eosinophils % 0.2 %; Immature Granulocytes % 0.8 % (0-4); Lymphocytes # 2.9 K/mcL (0.6-4.6); Lymphocytes % 15.7 %; Mean Corpuscular Hemoglobin 30.1 pg (28.0-33.3); Mean Platelet Volume 9.7 fL (9.4-12.4); Monocytes # 0.9 K/mcL (0.0-1.3); Monocytes % 4.8 %; Neutrophils # 14.3 K/mcL (1.6-8.9); Platelet Count 614 K/mcL (140-400); Red Blood Count 2.66 M/mcL (3.82-4.97); Red Cell Distribution Width 13.1 % (11.5-14.5); Segmented Neutrophils % 78.3 %; White Blood Count 18.3 K/mcL (4.3-11.1)
[2020-12-30 02:10] LABS: BUN/Creatinine Ratio 13 (6-26); Blood Urea Nitrogen 6 mg/dL (6-20); Calcium 8.6 mg/dL (8.6-10.3); Carbon Dioxide 26 mEq/L (23-29); Chloride 95 mEq/L (98-107); Glucose 179 mg/dL (70-105); Osmolality,Calculated 276 (280-300); Potassium 3.7 mEq/L (3.5-5.1); Sodium 132 mEq/L (136-145); eGFR For African Americans > 60 (> 60); eGFR For Non-African Americans > 60 (> 60)
[2020-12-30] MEDS: Piperacillin/Tazobactam 3.375 GM in 0.9 % Sodium Chloride Mini Bag 100 ML IVPB SCH ×4 (03:43→20:16)
[2020-12-30] MEDS: Morphine Sulfate 2 MG/ML SYRINGE IVP PRN (03:48)
[2020-12-30] MEDS ORDERED: Naloxone 0.4 MG/ML INJ IVP PRN (07:10)
[2020-12-30] MEDS ORDERED: Ringers Solution, Lactated 1,000 ML IVC SCH (07:10)
[2020-12-30] MEDS ORDERED: Ondansetron 4 MG/2 ML VIAL IVP PRN (07:10)
[2020-12-30] MEDS ORDERED: Insulin LISPRO 300 UNITS/3 ML VIAL SUBQ SCH (07:30)
[2020-12-30] MEDS ORDERED: NON-FORMULARY MEDICATION 1 EACH EACH (Insulin Lispro [Humalog Kwikpen U-100] 100 UNIT/ML I SQ SCH (08:00)
[2020-12-30] MEDS ORDERED: *HR* Metformin 500 MG TABLET PO SCH (08:00)
[2020-12-30] MEDS ORDERED: Morphine Sulfate 2 MG/ML SYRINGE IVP PRN ×2 (08:38→15:08)
[2020-12-30] MEDS ORDERED: Morphine Sulfate 2 MG/ML SYRINGE IVP ONE ×2 (08:44→16:33)
[2020-12-30] MEDS ORDERED: predniSONE 20 MG TABLET PO SCH (09:00)
[2020-12-30] MEDS ORDERED: *HR* Dextrose 50 % in Water (Syg) 50 ML SYRINGE IVP PRN (09:32)
[2020-12-30] MEDS ORDERED: D5% in Water 1,000 ML IVC PRN (09:32)
[2020-12-30] MEDS ORDERED: Dextrose Gel 15 GM/37.5 ML TUBE PO PRN ×2 (09:32)
[2020-12-30] MEDS: Acetaminophen 325 MG TABLET PO PRN (12:05)
[2020-12-30] MEDS: Insulin LISPRO 300 UNITS/3 ML VIAL SUBQ SCH ×3 (12:44→20:18)
[2020-12-30] MEDS: 0.9 % Sodium Chloride 1,000 ML IVC SCH ×2 (13:18→23:26)
[2020-12-30] MEDS ORDERED: tiZANidine 4 MG TABLET PO PRN (15:05)
[2020-12-30] MEDS: Gabapentin 400 MG CAPSULE PO SCH (16:11)
[2020-12-30] MEDS: DAPTOmycin 500 MG in 0.9 % Sodium Chloride 100 ML IVPB SCH (16:11)
[2020-12-30] MEDS: *HR* OxyCODONE Immed Rel 5 MG TABLET PO PRN (20:16)
[2020-12-30] MEDS ORDERED: *HR* Metoprolol 5 MG/5 ML VIAL IVP ONE (23:53)
[2020-12-31] MEDS: Piperacillin/Tazobactam 3.375 GM in 0.9 % Sodium Chloride Mini Bag 100 ML IVPB SCH ×3 (04:25→20:30)
[2020-12-31] MEDS: *HR* HYDROcodone/Acet 5/325 mg TABLET PO PRN (04:26)
[2020-12-31] MEDS ORDERED: Perflutren Lipid Microsphere 1.3 ML in 0.9 % Sodium Chloride 8.7 ML IVP PRN (07:14)
[2020-12-31] MEDS: Insulin LISPRO 300 UNITS/3 ML VIAL SUBQ SCH ×4 (08:21→20:46)
[2020-12-31] MEDS: Gabapentin 400 MG CAPSULE PO SCH (08:25)
[2020-12-31 10:20] LABS: Basophils % 0.2 %; Eosinophils % 0.1 %; Hematocrit 23.6 % (35.3-44.9); Hemoglobin 7.7 g/dL (11.5-15.4); Immature Granulocytes % 0.5 % (0-4); Lymphocytes # 2.1 K/mcL (0.6-4.6); Lymphocytes % 12.1 %; Mean Corpuscular HGB Conc 32.6 g/dL (31.6-35.5); Mean Corpuscular Hemoglobin 30.7 pg (28.0-33.3); Mean Platelet Volume 10.1 fL (9.4-12.4); Monocytes # 0.7 K/mcL (0.0-1.3); Monocytes % 4.3 %; Neutrophils # 14.1 K/mcL (1.6-8.9); Platelet Count 571 K/mcL (140-400); Red Blood Count 2.51 M/mcL (3.82-4.97); Segmented Neutrophils % 82.8 %; White Blood Count 17.1 K/mcL (4.3-11.1)
[2020-12-31 10:32] LABS: Alanine Aminotransferase 15 Units/L (7-52); Albumin 2.6 g/dL (3.5-5.7); Albumin/Globulin Ratio 0.7 (1.1-2.2); Alkaline Phosphatase 192 Units/L (34-104); Aspartate Amino Transferase 18 Units/L (13-39); BUN/Creatinine Ratio 12 (6-26); Bilirubin,Total 0.3 mg/dL (0.3-1.0); Blood Urea Nitrogen 5 mg/dL (6-20); Calcium 8.3 mg/dL (8.6-10.3); Carbon Dioxide 27 mEq/L (23-29); Chloride 97 mEq/L (98-107); Globulin 3.6 g/dL (2.4-3.5); Glucose 171 mg/dL (70-105); Magnesium 1.4 mg/dL (1.6-2.6); Osmolality,Calculated 279 (280-300); Phosphorous 2.8 mg/dL (2.7-4.5); Potassium 3.3 mEq/L (3.5-5.1); Sodium 134 mEq/L (136-145); Total Protein 6.2 g/dL (6.4-8.9); eGFR For African Americans > 60 (> 60); eGFR For Non-African Americans > 60 (> 60)
[2020-12-31] MEDS ORDERED: 0.9 % Sodium Chloride 1,000 ML IV ONE (11:54)
[2020-12-31] MEDS: Acetaminophen 325 MG TABLET PO PRN ×3 (12:03→17:59)
[2020-12-31] MEDS ORDERED: 0.9 % Sodium Chloride 1,000 ML IVC ONE (13:52)
[2020-12-31] MEDS: Albumin 25% 25gram/100mL 25 GM/100 ML IV.SOLN IVPB SCH ×2 (14:24→15:54)
[2020-12-31] MEDS: *HR* OxyCODONE Immed Rel 5 MG TABLET PO PRN (15:50)
[2020-12-31] MEDS: DAPTOmycin 500 MG in 0.9 % Sodium Chloride 100 ML IVPB SCH (16:35)
[2020-12-31] MEDS: 0.9 % Sodium Chloride 1,000 ML IVC SCH (16:44)
[2021-01-01] MEDS: *HR* OxyCODONE Immed Rel 5 MG TABLET PO PRN ×2 (00:32→21:17)
[2021-01-01] MEDS: Acetaminophen 325 MG TABLET PO PRN ×3 (00:32→18:51)
[2021-01-01] MEDS: Albumin 25% 25gram/100mL 25 GM/100 ML IV.SOLN IVPB SCH ×4 (01:05→15:41)
[2021-01-01] MEDS: 0.9 % Sodium Chloride 1,000 ML IVC SCH ×3 (03:46→16:16)
[2021-01-01] MEDS: Piperacillin/Tazobactam 3.375 GM in 0.9 % Sodium Chloride Mini Bag 100 ML IVPB SCH ×2 (03:54→11:55)
[2021-01-01 05:17] LABS: BUN/Creatinine Ratio 8 (6-26); Blood Urea Nitrogen 3 mg/dL (6-20); Calcium 7.9 mg/dL (8.6-10.3); Carbon Dioxide 26 mEq/L (23-29); Chloride 101 mEq/L (98-107); Glucose 192 mg/dL (70-105); Osmolality,Calculated 282 (280-300); Potassium 3.4 mEq/L (3.5-5.1); Sodium 135 mEq/L (136-145); eGFR For African Americans > 60 (> 60); eGFR For Non-African Americans > 60 (> 60)
[2021-01-01] MEDS: *HR* HYDROcodone/Acet 5/325 mg TABLET PO PRN (05:23)
[2021-01-01 05:58] LABS: Basophils % 0.3 %; Eosinophils % 0.2 %; Hematocrit 19.9 % (35.3-44.9); Hemoglobin 6.2 g/dL (11.5-15.4); Immature Granulocytes % 0.4 % (0-4); Lymphocytes # 1.6 K/mcL (0.6-4.6); Lymphocytes % 13.7 %; Mean Corpuscular HGB Conc 31.2 g/dL (31.6-35.5); Mean Corpuscular Hemoglobin 29.1 pg (28.0-33.3); Mean Corpuscular Volume 93.4 fL (83.0-100.0); Mean Platelet Volume 9.7 fL (9.4-12.4); Monocytes # 0.5 K/mcL (0.0-1.3); Monocytes % 3.9 %; Neutrophils # 9.3 K/mcL (1.6-8.9); Platelet Count 521 K/mcL (140-400); Red Blood Count 2.13 M/mcL (3.82-4.97); Red Cell Distribution Width 13.1 % (11.5-14.5); Segmented Neutrophils % 81.5 %; White Blood Count 11.4 K/mcL (4.3-11.1)
[2021-01-01] MEDS: Insulin LISPRO 300 UNITS/3 ML VIAL SUBQ SCH ×4 (08:12→21:10)
[2021-01-01] MEDS: Gabapentin 400 MG CAPSULE PO SCH (08:19)
[2021-01-01] MEDS: Pantoprazole 40 MG VIAL IVP SCH ×2 (08:20→18:48)
[2021-01-01 09:30] LABS: Hematocrit 19.3 % (35.3-44.9); Hemoglobin 6.1 g/dL (11.5-15.4)
[2021-01-01] MEDS ORDERED: 0.9 % Sodium Chloride 250 ML ONE ×2 (10:34→15:34)
[2021-01-01] MEDS ORDERED: Potassium Chloride Elixir 20 MEQ/15 ML UDC PO ONE (12:39)
[2021-01-01] MEDS: Famotidine 20 MG TABLET PO SCH (13:24)
[2021-01-01] MEDS ORDERED: Furosemide 20 MG/2 ML VIAL IVP ONE (15:59)
[2021-01-01] MEDS: DAPTOmycin 500 MG in 0.9 % Sodium Chloride 100 ML IVPB SCH (18:48)
[2021-01-01 18:51] LABS: Basophils % 0.4 %; Eosinophils % 0.2 %; Hematocrit 24.9 % (35.3-44.9); Immature Granulocytes % 0.4 % (0-4); Lymphocytes # 1.5 K/mcL (0.6-4.6); Lymphocytes % 13.8 %; Mean Corpuscular HGB Conc 32.5 g/dL (31.6-35.5); Mean Corpuscular Hemoglobin 29.5 pg (28.0-33.3); Mean Corpuscular Volume 90.5 fL (83.0-100.0); Mean Platelet Volume 10.2 fL (9.4-12.4); Monocytes # 0.4 K/mcL (0.0-1.3); Monocytes % 3.9 %; Neutrophils # 9.1 K/mcL (1.6-8.9); Platelet Count 594 K/mcL (140-400); Red Blood Count 2.75 M/mcL (3.82-4.97); Red Cell Distribution Width 13.7 % (11.5-14.5); Segmented Neutrophils % 81.3 %; White Blood Count 11.2 K/mcL (4.3-11.1)
[2021-01-01 18:56] LABS: Hemoglobin 8.1 g/dL (11.5-15.4)
[2021-01-02] MEDS: Pantoprazole 40 MG VIAL IVP SCH ×2 (05:39→17:10)
[2021-01-02] MEDS: *HR* OxyCODONE Immed Rel 5 MG TABLET PO PRN ×2 (05:39→21:41)
[2021-01-02 06:14] LABS: Basophils # 0.1 K/mcL (0.0-0.2); Basophils % 0.6 %; Eosinophils % 0.3 %; Hematocrit 24.2 % (35.3-44.9); Immature Granulocytes % 0.6 % (0-4); Lymphocytes # 1.5 K/mcL (0.6-4.6); Lymphocytes % 16.5 %; Mean Corpuscular HGB Conc 32.6 g/dL (31.6-35.5); Mean Corpuscular Hemoglobin 29.5 pg (28.0-33.3); Mean Corpuscular Volume 90.3 fL (83.0-100.0); Mean Platelet Volume 9.6 fL (9.4-12.4); Monocytes # 0.5 K/mcL (0.0-1.3); Monocytes % 5.1 %; Platelet Count 557 K/mcL (140-400); Red Blood Count 2.68 M/mcL (3.82-4.97); Red Cell Distribution Width 13.7 % (11.5-14.5); Segmented Neutrophils % 76.9 %; White Blood Count 9.1 K/mcL (4.3-11.1)
[2021-01-02 06:16] LABS: Hemoglobin 7.9 g/dL (11.5-15.4)
[2021-01-02] MEDS: Insulin LISPRO 300 UNITS/3 ML VIAL SUBQ SCH ×4 (07:17→22:00)
[2021-01-02] MEDS ORDERED: Ondansetron 4 MG/2 ML VIAL IVP PRN (07:33)
[2021-01-02] MEDS: Acetaminophen 325 MG TABLET PO PRN ×2 (08:16→17:10)
[2021-01-02] MEDS: Gabapentin 400 MG CAPSULE PO SCH (08:16)
[2021-01-02] MEDS: cefTRIAXone 2,000 MG in 0.9 % Sodium Chloride Mini Bag 100 ML IVPB SCH (08:17)
[2021-01-02] MEDS: Famotidine 20 MG TABLET PO SCH (08:18)
[2021-01-02 08:56] LABS: BUN/Creatinine Ratio 5 (6-26); Blood Urea Nitrogen 2 mg/dL (6-20); Calcium 8.7 mg/dL (8.6-10.3); Carbon Dioxide 31 mEq/L (23-29); Chloride 97 mEq/L (98-107); Glucose 140 mg/dL (70-105); Osmolality,Calculated 282 (280-300); Potassium 3.8 mEq/L (3.5-5.1); Sodium 137 mEq/L (136-145); eGFR For African Americans > 60 (> 60); eGFR For Non-African Americans > 60 (> 60)
[2021-01-02] MEDS: *HR* HYDROcodone/Acet 5/325 mg TABLET PO PRN (12:21)
[2021-01-02 14:40] LABS: Alanine Aminotransferase 18 Units/L (7-52); Albumin/Globulin Ratio 0.9 (1.1-2.2); Alkaline Phosphatase 161 Units/L (34-104); Aspartate Amino Transferase 27 Units/L (13-39); Bilirubin,Direct 0.1 mg/dL (0.0-0.2); Bilirubin,Indirect 0.3 mg/dL (0.0-1.0); Bilirubin,Total 0.4 mg/dL (0.3-1.0); Globulin 3.3 g/dL (2.4-3.5); Total Protein 6.3 g/dL (6.4-8.9)
[2021-01-02 14:53] LABS: Thyroid Stimulating Hormone 1.271 mcIU/mL (0.340-5.600)
[2021-01-03] MEDS: Acetaminophen 325 MG TABLET PO PRN (06:11)
[2021-01-03] MEDS: Pantoprazole 40 MG VIAL IVP SCH (06:11)
[2021-01-03 06:41] LABS: Basophils % 0.4 %; Eosinophils % 0.6 %; Hematocrit 25.7 % (35.3-44.9); Hemoglobin 8.4 g/dL (11.5-15.4); Immature Granulocytes % 0.3 % (0-4); Lymphocytes # 0.9 K/mcL (0.6-4.6); Lymphocytes % 13.6 %; Mean Corpuscular HGB Conc 32.7 g/dL (31.6-35.5); Mean Corpuscular Hemoglobin 29.5 pg (28.0-33.3); Mean Corpuscular Volume 90.2 fL (83.0-100.0); Mean Platelet Volume 9.4 fL (9.4-12.4); Monocytes # 0.4 K/mcL (0.0-1.3); Monocytes % 5.5 %; Neutrophils # 5.5 K/mcL (1.6-8.9); Platelet Count 565 K/mcL (140-400); Red Blood Count 2.85 M/mcL (3.82-4.97); Red Cell Distribution Width 13.5 % (11.5-14.5); Segmented Neutrophils % 79.6 %; White Blood Count 6.9 K/mcL (4.3-11.1)
[2021-01-03 07:03] LABS: BUN/Creatinine Ratio 5 (6-26); Blood Urea Nitrogen 2 mg/dL (6-20); Calcium 8.7 mg/dL (8.6-10.3); Carbon Dioxide 33 mEq/L (23-29); Chloride 96 mEq/L (98-107); Glucose 159 mg/dL (70-105); Osmolality,Calculated 284 (280-300); Potassium 3.7 mEq/L (3.5-5.1); Sodium 137 mEq/L (136-145); eGFR For African Americans > 60 (> 60); eGFR For Non-African Americans > 60 (> 60)
[2021-01-03] MEDS: Insulin LISPRO 300 UNITS/3 ML VIAL SUBQ SCH ×4 (08:27→20:53)
[2021-01-03] MEDS: *HR* HYDROcodone/Acet 5/325 mg TABLET PO PRN ×2 (09:13→20:47)
[2021-01-03] MEDS: Famotidine 20 MG TABLET PO SCH (09:13)
[2021-01-03] MEDS: Gabapentin 400 MG CAPSULE PO SCH (09:13)
[2021-01-03] MEDS: cefTRIAXone 2,000 MG in 0.9 % Sodium Chloride Mini Bag 100 ML IVPB SCH (09:14)
[2021-01-04] MEDS: *HR* OxyCODONE Immed Rel 5 MG TABLET PO PRN (01:25)
[2021-01-04] MEDS ORDERED: Acetaminophen IV 500 MG/50 ML BAG IVPB ONE (03:22)
[2021-01-04] MEDS: *HR* HYDROcodone/Acet 5/325 mg TABLET PO PRN ×2 (04:18→08:56)
[2021-01-04 05:01] LABS: Basophils # 0.1 K/mcL (0.0-0.2); Basophils % 0.7 %; Eosinophils # 0.1 K/mcL (0.0-0.6); Hematocrit 28.6 % (35.3-44.9); Immature Granulocytes % 0.3 % (0-4); Lymphocytes # 1.8 K/mcL (0.6-4.6); Mean Corpuscular HGB Conc 31.5 g/dL (31.6-35.5); Mean Corpuscular Hemoglobin 28.8 pg (28.0-33.3); Mean Corpuscular Volume 91.7 fL (83.0-100.0); Mean Platelet Volume 9.8 fL (9.4-12.4); Monocytes # 0.5 K/mcL (0.0-1.3); Monocytes % 7.4 %; Neutrophils # 4.4 K/mcL (1.6-8.9); Platelet Count 605 K/mcL (140-400); Red Blood Count 3.12 M/mcL (3.82-4.97); Red Cell Distribution Width 13.6 % (11.5-14.5); Segmented Neutrophils % 64.6 %; White Blood Count 6.8 K/mcL (4.3-11.1)
[2021-01-04 05:22] LABS: BUN/Creatinine Ratio 8 (6-26); Blood Urea Nitrogen 3 mg/dL (6-20); Calcium 9.1 mg/dL (8.6-10.3); Carbon Dioxide 36 mEq/L (23-29); Chloride 96 mEq/L (98-107); Glucose 258 mg/dL (70-105); Osmolality,Calculated 289 (280-300); Potassium 3.5 mEq/L (3.5-5.1); Sodium 137 mEq/L (136-145); eGFR For African Americans > 60 (> 60); eGFR For Non-African Americans > 60 (> 60)
[2021-01-04] MEDS: Famotidine 20 MG TABLET PO SCH (08:57)
[2021-01-04] MEDS: Gabapentin 400 MG CAPSULE PO SCH (08:58)
[2021-01-04] MEDS: Insulin LISPRO 300 UNITS/3 ML VIAL SUBQ SCH ×2 (08:59→12:16)
[2021-01-04] MEDS: cefTRIAXone 2,000 MG in 0.9 % Sodium Chloride Mini Bag 100 ML IVPB SCH (09:01)
[2021-01-04 12:41] VITALS: BP 89/54; PULSE 102; TEMP 97.6; O2SAT 94
== END 2021-01-04 17:08 | disposition home health service (06) | DRG 710 ==
LOC: SUATTDRO → EMEROOARM 13:02 → 2NNU 13:02 → SUATTDRO 18:43 → 2NNU 19:28 → 2ANU 12-24 19:55
PROVIDERS: ADMIT Internal Medicine; ATTEND Internal Medicine
PROC: ENDOEBX (2020-12-28 13:00)

== ENCOUNTER 2021-12-12 20:07 | Observation (INO) ==
[2021-12-13 01:10] LABS: Basophils % 0.5 %; Immature Granulocytes % 0.2 % (0-4)
[2021-12-13 01:12] LABS: Immature Platelets 8.8 % (1.1-6.1); Mean Corpuscular Hemoglobin 29.2 pg (28.0-33.3)
[2021-12-13 01:19] LABS: Basophils # 0.1 K/mcL (0.0-0.2); Eosinophils # 0.1 K/mcL (0.0-0.6); Eosinophils % 0.9 %; Hematocrit 38.6 % (35.3-44.9); Hemoglobin 12.9 g/dL (11.5-15.4); Lymphocytes % 29.1 %; Mean Corpuscular HGB Conc 33.4 g/dL (31.6-35.5); Mean Corpuscular Volume 87.3 fL (83.0-100.0); Mean Platelet Volume 10.7 fL (9.4-12.4); Monocytes # 0.4 K/mcL (0.0-1.3); Monocytes % 4.3 %; Neutrophils # 6.6 K/mcL (1.6-8.9); Platelet Count 336 K/mcL (140-400); Red Blood Count 4.42 M/mcL (3.82-4.97); Red Cell Distribution Width 12.6 % (11.5-14.5); White Blood Count 10.1 K/mcL (4.3-11.1)
[2021-12-13] MEDS ORDERED: 0.9 % Sodium Chloride 1,000 ML IV ONE (01:24)
[2021-12-13] MEDS ORDERED: Ondansetron 4 MG/2 ML VIAL IVP ONE (01:25)
[2021-12-13 01:26] LABS: Albumin 4.7 g/dL (3.5-5.7); Albumin/Globulin Ratio 1.1 (1.1-2.2); Bilirubin,Direct 0.1 mg/dL (0.0-0.2); Bilirubin,Indirect 0.3 mg/dL (0.0-1.0); Bilirubin,Total 0.4 mg/dL (0.3-1.0); Calcium 10.6 mg/dL (8.6-10.3); Globulin 4.3 g/dL (2.4-3.5); Potassium 4.6 mEq/L (3.5-5.1)
[2021-12-13 01:41] LABS: Lymphocytes # 2.9 K/mcL (0.6-4.6)
[2021-12-13 02:58] LABS: Bilirubin,Urine Negative (Negative); Blood,Urine Negative (Negative); Clarity,Urine Turbid (Clear); Color,Urine Light-Yellow (Yellow); Glucose,Urine (UA) Normal (Normal); Hyaline Casts,Urine Many per lpf (None Seen); Ketones,Urine Trace mg/dL (Negative); Leukocyte Esterase,Urine Negative (Negative); Mucus,Urine Few per lpf (None-Few); Nitrite,Urine Negative (Negative); PH,Urine 5.5 pH Units (5.0-8.0); Protein,Urine 30 mg/dL (Neg-Trace); RBC,Urine 0-3 per hpf (0-3); Specific Gravity,Urine 1.019 (1.010-1.025); Squamous Epithelial Cell,Urine Few per hpf (None-Few); Urobilinogen,Urine Normal (Normal)
[2021-12-13] MEDS ORDERED: cefTRIAXone 1,000 MG in 0.9 % Sodium Chloride 10 ML IVP ONE (04:26)
[2021-12-13] MEDS ORDERED: Naloxone 0.4 MG/ML INJ IVP PRN (07:16)
[2021-12-13] MEDS ORDERED: Ondansetron 4 MG/2 ML VIAL IVP PRN (07:16)
[2021-12-13] MEDS ORDERED: D5% in Water 1,000 ML IVC PRN (07:28)
[2021-12-13] MEDS ORDERED: Dextrose Gel 15 GM/37.5 ML TUBE PO PRN ×2 (07:28)
[2021-12-13] MEDS ORDERED: *HR* Dextrose 50 % in Water (Syg) 50 ML SYRINGE IVP PRN (07:28)
[2021-12-13] MEDS: Ringers Solution, Lactated 1,000 ML IVC SCH ×2 (07:52→15:51)
[2021-12-13] MEDS: Insulin LISPRO 300 UNITS/3 ML VIAL SUBQ SCH ×3 (10:39→15:50)
[2021-12-13] MEDS: *HR* Heparin 5,000 UNIT/ML VIAL SQ SCH ×2 (15:32→21:03)
[2021-12-13] MEDS ORDERED: Insulin LISPRO 300 UNITS/3 ML VIAL SUBQ SCH (21:00)
[2021-12-14] MEDS: *HR* Heparin 5,000 UNIT/ML VIAL SQ SCH ×2 (05:09→14:06)
[2021-12-14 05:56] LABS: Basophils % 0.8 %; Eosinophils # 0.1 K/mcL (0.0-0.6); Eosinophils % 1.4 %; Hematocrit 34.5 % (35.3-44.9); Immature Granulocytes % 0.2 % (0-4); Lymphocytes % 39.3 %; Mean Corpuscular HGB Conc 32.8 g/dL (31.6-35.5); Mean Corpuscular Hemoglobin 29.3 pg (28.0-33.3); Mean Corpuscular Volume 89.4 fL (83.0-100.0); Mean Platelet Volume 10.3 fL (9.4-12.4); Monocytes # 0.4 K/mcL (0.0-1.3); Neutrophils # 2.7 K/mcL (1.6-8.9); Platelet Count 279 K/mcL (140-400); Red Blood Count 3.86 M/mcL (3.82-4.97); Red Cell Distribution Width 12.4 % (11.5-14.5); Segmented Neutrophils % 51.3 %; White Blood Count 5.2 K/mcL (4.3-11.1)
[2021-12-14 06:02] LABS: Hemoglobin 11.3 g/dL (11.5-15.4)
[2021-12-14 06:20] LABS: BUN/Creatinine Ratio 28 (6-26); Blood Urea Nitrogen 20 mg/dL (6-20); Calcium 9.9 mg/dL (8.6-10.3); Carbon Dioxide 31 mEq/L (23-29); Chloride 99 mEq/L (98-107); Glucose 255 mg/dL (70-105); Osmolality,Calculated 291 (280-300); Potassium 4.2 mEq/L (3.5-5.1); Sodium 135 mEq/L (136-145)
[2021-12-14] MEDS: Insulin LISPRO 300 UNITS/3 ML VIAL SUBQ SCH ×2 (08:21→11:55)
[2021-12-14] MEDS ORDERED: Insulin DETEMIR 100 UNIT/ML X5UNITS SUBQ SCH (09:00)
[2021-12-14 15:24] VITALS: BP 99/66; PULSE 93; TEMP 97.3; O2SAT 92
== END 2021-12-14 16:37 | disposition home or self-care (01) ==
LOC: 3BNU 20:07 → EMEROOARM 20:07 → 3BNU 12-13 14:06
PROVIDERS: ADMIT Internal Medicine; ATTEND Internal Medicine